=== PATIENT | female | born 1990 | race Caucasian/White ===

== ENCOUNTER → 2017-11-15 11:55 | Outpatient (CLI) | payer OTHER, SELFPAY ==
[2017-11-22 12:49] LABS: HPV Reflexed? NOT INDICATED
== END ==
PROVIDERS: Visit Provider Obstetrics & Gynecology
DX: Z12.4 Encounter for screening for malignant neoplasm of cervix (principal); Z12.72 Encounter for screening for malignant neoplasm of vagina
CPT/HCPCS: 88175; G0145

== ENCOUNTER → 2021-01-04 16:52 | Outpatient (CLI) | payer OTHER, SELFPAY ==
[2021-01-07 20:12] LABS: HPV APTIMA, High Risk Negative (Negative)
== END ==
PROVIDERS: Visit Provider Obstetrics & Gynecology
DX: Z12.4 Encounter for screening for malignant neoplasm of cervix (principal)
CPT/HCPCS: 87624; 88175; G0145

== ENCOUNTER 2021-07-14 14:23 | Outpatient (CLI) | payer OTHER, SELFPAY ==
[2021-07-14 16:05] LABS: Absolute Lymphocyte Count 2.28 X10^3/uL (0.83-4.51); Absolute Neutrophil Count 5.1 X10^3/uL (2.0-7.7); Basophil# 0.04 X10^3/uL; Basophil% 0.5 % (0-1); Eosinophil# 0.32 X10^3/uL; Eosinophils% 3.9 % (0-5); Hemoglobin 12.7 g/dL (12.0-15.0); Lymphocyte # 2.28 X10^3/ul (0.83-4.51); Lymphocyte % 27.8 % (19-41); Mean Corp Hgb Conc 33.4 g/dL (32-36); Mean Corpuscular Hgb 30.7 pg (27.0-32.0); Mean Corpuscular Volume 91.8 fL (81-99); Mean Platelet Vol. 10.2 fl (6.2-12.0); Monocyte# 0.47 X10^3/uL; Monocyte% 5.7 % (0-10); NRBC Flagged by Analyzer 0 % (0-5); Neutrophil # 5.06 X10^3/uL (2.7-7.7); Neutrophil % 61.9 % (47-70); Platelet Count 248 K/mm3 (150-450); RBC Distribution Width CV 12.8 % (11.6-14.6); RBC Distribution Width SD 42.8 fl (35.1-43.9); Red Blood Count 4.14 M/mm3 (4.2-5.4); White Blood Count 8.2 K/mm3 (4.4-11.0)
[2021-07-15 08:31] LABS: HIV - WCH Non-Reactive (Nonreactive); Hepatitis B Surface Antigen Non-Reactive (Nonreactive); Hepatitis C Antibody Non-Reactive (Nonreactive); Rubella IgG Reactive (Nonreactive); Syphilis Antibodies Non-reactive
[2021-07-18 15:08] LABS: Chlamydia By Nucleic Acid AMP Negative (Negative)
[2021-07-18 20:52] LABS: Gonococcus By Nucleic Acid AMP Negative (Negative)
== END 2021-07-14 23:59 | disposition home or self-care (01) ==
LOC: WOBLAB 14:25
PROVIDERS: Visit Provider Student in an Organized Health Care Education/Training Program
DX: Z34.81 Encounter for supervision of other normal pregnancy, first trimester (principal); Z11.3 Encounter for screening for infections with a predominantly sexual mode of transmission
CPT/HCPCS: 36415; 85025; 86703; 86762; 86780; 86803; 87086; 87088; 87340; 87491; 87591

== ENCOUNTER → 2021-12-20 | Outpatient (CLI) | payer OTHER, SELFPAY ==
[2021-12-20 17:32] LABS: Absolute Neutrophil Count 8.2 X10^3/uL (2.0-7.7); Basophil# 0.04 X10^3/uL; Basophil% 0.4 % (0-1); Eosinophil# 0.28 X10^3/uL; Eosinophils% 2.6 % (0-5); Glucose Challenge Gest 1H 50g 140 mg/dL (70-140); Hematocrit 34.2 % (37-47); Hemoglobin 11.3 g/dL (12.0-15.0); Lymphocyte % 15.8 % (19-41); Mean Corpuscular Hgb 31.7 pg (27.0-32.0); Mean Corpuscular Volume 95.8 fL (81-99); Mean Platelet Vol. 10.1 fl (6.2-12.0); Monocyte# 0.43 X10^3/uL; NRBC Flagged by Analyzer 0 % (0-5); Neutrophil # 8.23 X10^3/uL (2.7-7.7); Neutrophil % 76.7 % (47-70); Platelet Count 193 K/mm3 (150-450); RBC Distribution Width CV 13.2 % (11.6-14.6); RBC Distribution Width SD 45.9 fl (35.1-43.9); Red Blood Count 3.57 M/mm3 (4.2-5.4); White Blood Count 10.7 K/mm3 (4.4-11.0)
== END | disposition home or self-care (01) ==
PROVIDERS: Visit Provider Obstetrics & Gynecology
DX: Z34.81 Encounter for supervision of other normal pregnancy, first trimester (principal)
CPT/HCPCS: 36415; 82950; 85025

== ENCOUNTER → 2022-02-21 | Outpatient (CLI) | payer OTHER, SELFPAY | END | disposition home or self-care (01) | LOC: LABSPEC 15:38 | PROVIDERS: Visit Provider Obstetrics & Gynecology | DX: Z36.85 Encounter for antenatal screening for Streptococcus B (principal) | CPT/HCPCS: 87081 ==

== ENCOUNTER 2022-03-11 18:25 | Inpatient (IN) | payer OTHER, SELFPAY ==
[2022-03-11] VITALS (30 sets, daily range): BP systolic 108–138; BP diastolic 57–90; PULSE 70–100; TEMP 36.9–37.4; O2SAT 96–100; BMI 22.8
[2022-03-11] MEDS: Lactated Ringers 1,000 ML 50 ML IV (18:40)
[2022-03-11 19:01] LABS: Absolute Neutrophil Count 6.8 X10^3/uL (2.0-7.7); Basophil# 0.01 X10^3/uL; Basophil% 0.1 % (0-1); Eosinophil# 0.07 X10^3/uL; Eosinophils% 0.7 % (0-5); Hematocrit 39.8 % (37-47); Hemoglobin 13.5 g/dL (12.0-15.0); Lymphocyte % 20.3 % (19-41); Mean Corp Hgb Conc 33.9 g/dL (32-36); Mean Corpuscular Hgb 31.8 pg (27.0-32.0); Mean Corpuscular Volume 93.6 fL (81-99); Mean Platelet Vol. 11.5 fl (6.2-12.0); Monocyte% 5.3 % (0-10); NRBC Flagged by Analyzer 0 % (0-5); Neutrophil # 6.84 X10^3/uL (2.7-7.7); Neutrophil % 73.1 % (47-70); Platelet Count 186 K/mm3 (150-450); RBC Distribution Width CV 13.2 % (11.6-14.6); RBC Distribution Width SD 45.1 fl (35.1-43.9); Red Blood Count 4.25 M/mm3 (4.2-5.4); White Blood Count 9.4 K/mm3 (4.4-11.0)
[2022-03-11] MEDS: LACTATED RINGERS 500 ML 999 ML IV (20:25)
--- NOTE | 2022-03-11 22:11 | HP.PCM.OB_ITS ---
History and Physical Date of Admission: 03/11/22 Chief complaint: Contractions History of present illness: 31-year-old G1, P0 at 39 weeks and 3 days with VICKY 03/15/2022 arrives with contractions. Denies headache, visual changes, chest pain, shortness of breath, nausea vomit, right upper quadrant pain. Patient states good movement. Obstetric history: G1: Current Past medical history: None Medications: None Past surgical history: [place] teeth extraction Allergies: No known drug allergies Social history: Denies smoking, alcohol use, drug use Family history: Denies history DVT or PE Review of systems: Besides above pertinent positives a full review of systems was performed and found to be negative Physical exam: Vitals: Blood pressure 126/67 pulse 86 SPO2 97% on room air General: Normal-appearing no acute distress HEENT: Normocephalic/atraumatic no cervical lymphadenopathy Cardiac/respiratory: No accessory muscles, nonlabored breathing Abdomen: Soft, nontender, gravid Extremities: No peripheral edema normal peripheral pulses Psych: Normal affect normal demeanor nonpressured speech Labs: White blood cell count 9.4 hemoglobin 13.5 hematocrit 39.8% platelets 186 blood type O+ antibody negative Assessment plan: 31-year-old G1, P0 at 39 weeks and 3 days in labor Admit labor and delivery CEFM GBS negative Routine orders Anesthesia to see
[2022-03-11] MEDS: fentaNYL-bupivacaine (epidural) 100 ML BAG EPIDURAL (22:35)
[2022-03-12] VITALS (38 sets, daily range): BP systolic 91–155; BP diastolic 51–85; PULSE 71–175; RESP 12–20; TEMP 36.3–38.2; O2SAT 98–100
[2022-03-12] MEDS: Lactated Ringers 1,000 ML 200 ML IV ×2 (00:59→04:47)
[2022-03-12] MEDS: fentaNYL-bupivacaine (epidural) 100 ML BAG EPIDURAL ×2 (01:29→05:59)
[2022-03-12] MEDS: LACTATED RINGERS 500 ML 999 ML IV (04:48)
[2022-03-12] MEDS: Acetaminophen 500 MG Tablet PO (05:13)
--- NOTE | 2022-03-12 08:30 | PN.OBGYN_ITS ---
Subjective Subjective Comfortable with epidural. Currently pushing Objective Data Objective Data Vital Signs: Vital Signs Temp Pulse BP Pulse Ox 100.6 F H 74 136/70 H 98 03/12/22 07:12 03/12/22 07:42 03/12/22 07:13 03/12/22 07:42 Weight: 129 lb 3.054 oz Body Mass Index (BMI) 22.8 Intake & Output: Intake and Output for Last 24 Hours 03/10/22 03/11/22 03/12/22 23:59 23:59 22:59 Intake Total 587.5 / 587.5 2676.50 / 2676.50 Balance 587.5 / 587.5 2676.50 / 2676.50 Lab / Micro Data Result Diagrams: 03/11/22 18:45 Labs: Laboratory Results - last 24 hr 03/11/22 18:45: WBC 9.4, RBC 4.25, Hgb 13.5, Hct 39.8, MCV 93.6, MCH 31.8, MCHC 33.9, RDW Std Deviation 45.1 H, RDW Coeff of Елена 13.2, Plt Count 186, MPV 11.5, Immature Gran % (Auto) 0.500, Neut % (Auto) 73.1 H, Lymph % (Auto) 20.3, [place] % (Auto) 5.3, Eos % (Auto) 0.7, Baso % (Auto) 0.1, Absolute Neuts (auto) 6.8, Absolute Lymphs (auto) 1.90, Nucleated RBC % 0 03/11/22 18:45: Blood Type O POSITIVE, Antibody Screen NEGATIVE Physical Exam Const alert, oriented x3, no apparent distress, average body habitus, healthy appearing and well nourished HEENT normocephalic and moist oral mucous membranes Eyes PERRL Neck full ROM Resp normal respiratory effort, no retractions and no use of accessory muscles GI GI Narrative: Soft, nontender, gravid Narrative: Cervical exam: 10/100/+1. Moderate caput. Sacrum and coccyx with anterior tilt, prominent pubic arches. Narrow pelvis Extremity normal to inspection, full ROM and no clubbing, cyanosis or edema Neuro moves all extremities, no focal motor deficits and no sensory deficits noted Psych mental status grossly normal, affect normal, speech normal and activity/motor behavior normal Assessment & Plan (1) : PLAN: Patient seen and examined. Pushing for 3 hours. Diagnosed with suspected chorioamnionitis based on temperature and tachycardia. Narrow pelvis not a candidate for operative delivery. Educated patient on findings discussed section risk benefits alternatives. Patient desires expectant management for continued pushing for least 30 more minutes. Okay for pushing we will reevaluate and rediscuss options including section. Continue to treat suspected chorioamnionitis with ampicillin and gentamicin. Treat temperatures with Tylenol
[2022-03-12] MEDS: Sodium Citrate/Citric Acid 30 ML UDC PO (09:20)
--- NOTE | 2022-03-12 09:22 | PN.OBGYN_ITS ---
Subjective Subjective Comfortable with epidural continuing to push Objective Data Objective Data Vital Signs: Vital Signs Temp Pulse BP Pulse Ox 99.1 F 72 129/83 H 98 03/12/22 08:50 03/12/22 08:51 03/12/22 08:51 03/12/22 07:42 Weight: 129 lb 3.054 oz Body Mass Index (BMI) 22.8 Intake & Output: Intake and Output for Last 24 Hours 03/10/22 03/11/22 03/12/22 23:59 23:59 22:59 Intake Total 587.5 / 587.5 2676.50 / 2676.50 Balance 587.5 / 587.5 2676.50 / 2676.50 Lab / Micro Data Result Diagrams: 03/11/22 18:45 Labs: Laboratory Results - last 24 hr 03/11/22 18:45: WBC 9.4, RBC 4.25, Hgb 13.5, Hct 39.8, MCV 93.6, MCH 31.8, MCHC 33.9, RDW Std Deviation 45.1 H, RDW Coeff of Елена 13.2, Plt Count 186, MPV 11.5, Immature Gran % (Auto) 0.500, Neut % (Auto) 73.1 H, Lymph % (Auto) 20.3, [place] % (Auto) 5.3, Eos % (Auto) 0.7, Baso % (Auto) 0.1, Absolute Neuts (auto) 6.8, Absolute Lymphs (auto) 1.90, Nucleated RBC % 0 03/11/22 18:45: Blood Type O POSITIVE, Antibody Screen NEGATIVE Physical Exam Const alert, oriented x3, no apparent distress, average body habitus, healthy appearing and well nourished HEENT normocephalic and moist oral mucous membranes Eyes PERRL Neck full ROM Resp normal respiratory effort, no retractions and no use of accessory muscles GI GI Narrative: Soft, nontender, gravid Narrative: Cervical exam: /+1. Increase It from last exam. Narrow pelvis Extremity normal to inspection, full ROM and no clubbing, cyanosis or edema Neuro moves all extremities and no focal motor deficits Psych mental status grossly normal, affect normal, speech normal and activity/motor behavior normal Assessment & Plan (1) : PLAN: Patient seen and examined. Increased catheter from last exam no improvement in station. Narrow pelvis not a candidate for operative delivery. Educated patient on findings. Discussed need for primary low-transverse section Via Pfannenstiel incision. Risk benefits alternatives including risk for infection and blood loss. Patient states understanding wish to proceed. All questions were answered and consent was signed. For now. Continue amp, gent, and add clindamycin 900 mg. For now, operative team called, anesthesia called
[2022-03-12] MEDS: Clindamycin 900 MG/50 ML BAG 75 MG IV ×2 (09:40→17:40)
--- NOTE | 2022-03-12 10:42 | EX.PCM.OBRPT ---
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 Normal uterus, tubes, and ovaries. Left lateral hysterotomy extension. Left uterine vessel [place] stitch thrown x2. Consent: Patient arrived in labor spontaneously ruptured membranes later with fever and tachycardia r and diagnosis suspected chorioamnionitis became complete dilation and pushed for nearly 4 hours. Noted to have narrow pelvis. Patient elects for primary low-transverse section Via Pfannenstiel incision. Patient understands the risk of the procedure include but are not limited to visceral or vascular injury, prolonged hospitalization, blood loss and need for transfusion, reoperation. Patient state understanding and wished to proceed. All questions were answered and consent was signed. Procedure: Patient was brought back to the OR where epidural anesthesia was found to be adequate. Ampicillin, gentamicin, clindamycin given for infection prophylaxis. pillow was inserted 180 cc of normal saline placed in pillow, pillow spontaneously fell out of the vagina prior to surgery. Patient was prepared and draped in a supine position with leftward tilt. A Pfannenstiel incision was made at the skin with a scalpel. The incision was carried down the fascia with a scalpel. The fascia was excised and extended laterally. Rectus muscle was dissected at the midline down to the level of the pubic symphysis. Preperitoneal fatty tissue was noted and peritoneum was entered bluntly. Peritoneum was extended superiorly and inferiorly with good visualization of bladder. Bladder blade was inserted and vesicouterine peritoneum was identified. Low transverse hysterotomy was made. Hand was placed into the incision and and gentle fundal pressure was applied once the head was brought into the incision and the bladder blade was removed. Head and shoulders were delivered with ease. Cord was clamped and cut. Baby handed off to nursing. Placenta was delivered via cord traction and fundal massage. Uterus was exteriorized and wiped out with dry laparotomy sponge in order to remove remaining placental membranes. Above findings were noted. Hysterotomy was closed in a continuous running fashion with Vicryl suture. Left uterine extension noted and left [place] suture Monocryl was placed x2. Good hemostasis was noted. Incision was reinspected and good hemostasis was noted. Uterus was placed back in the abdominal cavity and the incision was reinspected, good hemostasis was noted. Floseal was placed at the area of extension. Good hemostasis was noted. Fascia was closed in a continuous running fashion with PDS. Subcutaneous irrigation was performed and good hemostasis was noted. Skin was closed in a subcuticular fashion. All counts were correct x2. Patient tolerated the procedure well and was brought to recovery in stable condition.
[2022-03-12] MEDS: Ketorolac 30 MG/ML Syringe IV ×3 (10:56→23:38)
[2022-03-12] MEDS: Oxytocin 15 Units/NS 250ml 15 UNITS/250 ML IV.SOLN 83 UNITS IV (11:01)
[2022-03-12] MEDS: Acetaminophen 500 MG Tablet 1000 MG PO ×3 (11:55→23:44)
[2022-03-12] MEDS: Lactated Ringers 1,000 ML 100 ML IV (11:55)
[2022-03-12] MEDS: 0.9% Saline Lock 10 ML Syringe IV (17:40)
[2022-03-12] MEDS: Enoxaparin 40 MG/0.4 ML Syringe SC (23:39)
[2022-03-13] MEDS: Clindamycin 900 MG/50 ML BAG 75 MG IV ×2 (02:04→09:44)
[2022-03-13] MEDS: 0.9% Saline Lock 10 ML Syringe IV (02:05)
[2022-03-13 04:13] VITALS: BP 97/66; PULSE 80; RESP 14; TEMP 36.2; O2SAT 99
--- NOTE | 2022-03-13 05:01 | PCM.PN.OB ---
Subjective Subjective Patient feeling well. Having some soreness. Lochia decreasing. Working on breast-feeding. Objective Data Objective Data Vital Signs: Vital Signs Temp Pulse Resp BP Pulse Ox O2 Del Method 97.2 F L 80 14 97/66 99 Room Air 03/13/22 04:13 03/13/22 04:13 03/13/22 04:13 03/13/22 04:13 03/13/22 04:13 03/13/22 04:13 Oxygen Delivery Method Room Air Weight: 58.6 kg Body Mass Index (BMI) 22.8 Intake & Output: Intake and Output for Last 24 Hours 03/12/22 03/12/22 03/13/22 00:59 23:59 23:59 Intake Total 150 / 150 Output Total Balance 150 / 150 Lab / Micro Data Attestation: I reviewed the patient's lab results. Result Diagrams: 03/11/22 18:45 Physical Exam Const alert, oriented x3 and no apparent distress HEENT normocephalic Head and Scalp: atraumatic Neck full ROM Resp normal respiratory effort Cardio regular rate GI normal to inspection, nondistended, normoactive bowel sounds GI Narrative: Uterus 2 cm below umbilicus, dressing with two areas of dried blood,no new. Back/Spine normal ROM Extremity normal to inspection Extremity Narrative: Minimal pedal edema Neuro no focal motor deficits and no sensory deficits noted Psych mental status grossly normal and affect normal Assessment & Plan (1) History of section: PLAN: Postop day 1 status post primary section. Complicated by chorioamnionitis. Last fever on 03/12 at 0712. Patient is continued on antibiotics for 24 hours which should be completed this morning (ampicillin/gentamicin/clindamycin). CBC is pending for this morning. Likely home tomorrow. (2) Chorioamnionitis:
[2022-03-13] MEDS: Acetaminophen 500 MG Tablet 1000 MG PO ×3 (05:19→18:59)
[2022-03-13] MEDS: Ketorolac 30 MG/ML Syringe IV (05:19)
[2022-03-13 07:07] LABS: Hemoglobin 9.4 g/dL (12.0-15.0); Mean Corp Hgb Conc 33.6 g/dL (32-36); Mean Corpuscular Hgb 32.3 pg (27.0-32.0); Mean Corpuscular Volume 96.2 fL (81-99); Mean Platelet Vol. 10.8 fl (6.2-12.0); Platelet Count 127 K/mm3 (150-450); RBC Distribution Width CV 13.9 % (11.6-14.6); RBC Distribution Width SD 48.9 fl (35.1-43.9); Red Blood Count 2.91 M/mm3 (4.2-5.4); White Blood Count 18.5 K/mm3 (4.4-11.0)
[2022-03-13 07:30] VITALS: BP 103/61; PULSE 81; RESP 16; TEMP 36.2; O2SAT 98
[2022-03-13] MEDS: Senna/Docusate Sodium 1 Tablet PO (09:45)
[2022-03-13] MEDS: Ibuprofen 600 MG Tablet PO ×3 (10:59→23:22)
[2022-03-13 14:43] VITALS: BP 108/65; PULSE 98; RESP 18; TEMP 36.7; O2SAT 98
[2022-03-13 21:24] VITALS: BP 116/80; PULSE 78; RESP 18; TEMP 36.2; O2SAT 99
[2022-03-13] MEDS: Enoxaparin 40 MG/0.4 ML Syringe SC (21:30)
[2022-03-14] MEDS: Acetaminophen 500 MG Tablet 1000 MG PO ×3 (00:34→16:41)
[2022-03-14 02:05] VITALS: BP 109/71; PULSE 78; RESP 18; TEMP 36.5; O2SAT 98
[2022-03-14] MEDS: Ibuprofen 600 MG Tablet PO ×2 (05:34→14:14)
[2022-03-14 05:47] LABS: Absolute Lymphocyte Count 2.55 X10^3/uL (0.83-4.51); Absolute Neutrophil Count 14.1 X10^3/uL (2.0-7.7); Basophil# 0.04 X10^3/uL; Basophil% 0.2 % (0-1); Eosinophil# 0.24 X10^3/uL; Eosinophils% 1.4 % (0-5); Hematocrit 31.7 % (37-47); Hemoglobin 10.6 g/dL (12.0-15.0); Lymphocyte # 2.55 X10^3/ul (0.83-4.51); Lymphocyte % 14.4 % (19-41); Mean Corp Hgb Conc 33.4 g/dL (32-36); Mean Corpuscular Hgb 31.8 pg (27.0-32.0); Mean Corpuscular Volume 95.2 fL (81-99); Monocyte# 0.56 X10^3/uL; Monocyte% 3.2 % (0-10); NRBC Flagged by Analyzer 0 % (0-5); Neutrophil # 14.12 X10^3/uL (2.7-7.7); Neutrophil % 79.9 % (47-70); Platelet Count 162 K/mm3 (150-450); RBC Distribution Width CV 14.2 % (11.6-14.6); RBC Distribution Width SD 49.1 fl (35.1-43.9); Red Blood Count 3.33 M/mm3 (4.2-5.4); White Blood Count 17.7 K/mm3 (4.4-11.0)
--- NOTE | 2022-03-14 08:32 | PN.OBGYN_ITS ---
Subjective Subjective Patient feeling sore. Motrin and Tylenol helping. Lochia minimal. Breast- feeding going well. Reports of gas pain. He is passing gas. Objective Data Objective Data Vital Signs: Vital Signs Temp Pulse Resp BP Pulse Ox O2 Del Method 97.7 F L 78 18 109/71 98 Room Air 03/14/22 02:05 03/14/22 02:05 03/14/22 02:05 03/14/22 02:05 03/14/22 02:05 03/14/22 02:05 Oxygen Delivery Method Room Air Weight: 58.6 kg Body Mass Index (BMI) 22.8 Intake & Output: Intake and Output for Last 24 Hours 03/12/22 03/13/22 03/14/22 23:59 23:59 23:59 Intake Total 356.5 / 356.5 Output Total 400 / 400 Balance 356.5 / 356.5 -400 / -400 Lab / Micro Data Attestation: I reviewed the patient's lab results. Result Diagrams: 03/14/22 05:32 Labs: Laboratory Results - last 24 hr 03/14/22 05:32: WBC 17.7 H, RBC 3.33 L, Hgb 10.6 L, Hct 31.7 L, MCV 95.2, MCH 31.8, MCHC 33.4, RDW Std Deviation 49.1 H, RDW Coeff of Елена 14.2, Plt Count 162, MPV 11.0, Immature Gran % (Auto) 0.900, Neut % (Auto) 79.9 H, Lymph % (Auto) 14.4 L, [place] % (Auto) 3.2, Eos % (Auto) 1.4, Baso % (Auto) 0.2, Absolute Neuts (auto) 14.1 H, Absolute Lymphs (auto) 2.55, Nucleated RBC % 0 Physical Exam Const alert, oriented x3 and no apparent distress HEENT normocephalic Head and Scalp: atraumatic Neck full ROM Resp normal respiratory effort Cardio regular rate GI normal to inspection, nondistended, normoactive bowel sounds GI Narrative: Uterus 2 cm below umbilicus, dressing dried area of blood, no new. Back/Spine normal ROM Extremity normal to inspection Extremity Narrative: Minimal pedal edema Neuro no focal motor deficits and no sensory deficits noted Psych mental status grossly normal and affect normal Assessment & Plan (1) Chorioamnionitis: (2) History of section: PLAN: Postop day 2 status post primary section. Complicated by chorioamnionitis. Last fever on 03/12 at 0712. Status post 24 hours of antibiotics. Leukocytosis stable. Hemoglobin stable. Reviewed postoperative care, signs and symptoms of infection including fever greater than 100.4 degrees F, foul-smelling discharge, erythema around incision. Discharge home today. (3) Acute postoperative pain:
--- NOTE | 2022-03-14 08:36 | DCINST_ITS ---
Discharge Instructions Diet Discharge Diet: No restrictions Activity Discharge Activity: Return to Normal Activity and May Shower May resume sexual activity in: 4-6 weeks Weight Bearing Status: Weight bearing as tolerated Lifting Restrictions: No greater than 25 pounds Dressing / Incision Call your doctor if your incision/area has: Continuous Slow Oozing, Increased Redness and Swelling at the incision site Call your doctor if you observe: Fever of 101 or Higher, Change in Color, Inability to urinate, Using more than 1 pad per hour, Shortness of breath, Dizziness, Swelling in the ankles, Chest pain and Calf discomfort Remove Dressing in: 1 week Cleanse incision/area with: Soap & Water and Keep Dressing Clean & Dry Follow Up Care Please Follow Up With: Klever Galloway MD When: 2-week and 6-week visit Test Results: Test results from this visit will be discussed in further detail at your follow- up appointment, if applicable. Discharge Plan Admission Admit Date/Time: 03/11/22 18:25 Primary Reason for Your Visit: Labor, section Attending Provider: Olga Galloway Instructions Additional Instructions / Restrictions: Regular diet. Okay to shower. No tub baths for 2 weeks. No lifting over 25 pounds for 2 to 3 weeks. Call if chest pain, shortness of breath. Follow-up 2 weeks postoperatively Discharge Orders/Prescriptions Prescriptions: New oxycodone 5 mg Tablet 5 mg PO Q6H PRN (Reason: pain (scale score 7-10)) 4 Days Qty: 16 0RF Continued 1 tab PO.IVFORM DAILY Disposition Disposition (needs filled in before D/C Order can be placed): Home, Self Care
--- NOTE | 2022-03-14 08:37 | DS.PCM_ITS ---
Providers Date of Admission: 03/11/22 Reason For Visit: PRIMARY C SECTION Diagnosis Discharge Diagnosis (1) Chorioamnionitis: Status: Acute Code(s): O41.1290 - Chorioamnionitis, unspecified trimester, not applicable or unspecified (2) History of section: Status: Acute Code(s): Z98.891 - History of uterine scar from previous surgery Plan: Postop day 2 status post primary section. Complicated by chorioamnionitis. Last fever on 03/12 at 0712. Status post 24 hours of antibiotics. Leukocytosis stable. Hemoglobin stable. Reviewed postoperative care, signs and symptoms of infection including fever greater than 100.4 degrees F, foul-smelling discharge, erythema around incision. Discharge home today. (3) Acute postoperative pain: Status: Acute Code(s): G89.18 - Other acute postprocedural pain Medications at Discharge Home Medications 1 tab PO.IVFORM DAILY 03/11/22 oxycodone 5 mg tablet 5 mg PO Q6H PRN pain (scale score 7-10) 4 days #16 tabs 03/12/22 Hospital Course Operations section Summary of Care Provided Hospital Course: Patient admitted in labor. Progressed throughout. Pushed for several hours, with minimal descent. Chorioamnionitis develop. Patient had section on 03/12/2022. Received 24 hours of antibiotics postoperatively. Patient has been afebrile for total 48 hours on discharge. Discharge home. Weight / BMI Weight Weight: 58.6 kg Body Mass Index (BMI) 22.8 ABG / Lab / Microbiology Data Result Diagrams: 03/14/22 05:32 Laboratory: Laboratory Results - last 24 hr 03/14/22 05:32: WBC 17.7 H, RBC 3.33 L, Hgb 10.6 L, Hct 31.7 L, MCV 95.2, MCH 31.8, MCHC 33.4, RDW Std Deviation 49.1 H, RDW Coeff of Елена 14.2, Plt Count 162, MPV 11.0, Immature Gran % (Auto) 0.900, Neut % (Auto) 79.9 H, Lymph % (Auto) 14.4 L, [place] % (Auto) 3.2, Eos % (Auto) 1.4, Baso % (Auto) 0.2, Absolute Neuts (auto) 14.1 H, Absolute Lymphs (auto) 2.55, Nucleated RBC % 0 D/C Instructions Discharge Diet: No restrictions May resume sexual activity in: 4-6 weeks Weight Bearing Status: Weight bearing as tolerated Call your doctor if your incision/area has: Continuous Slow Oozing, Increased Redness and Swelling at the incision site Call your doctor if you observe: Fever of 101 or Higher, Change in Color, Inability to urinate, Using more than 1 pad per hour, Shortness of breath, Dizziness, Swelling in the ankles, Chest pain and Calf discomfort Cleanse incision/area with: Soap & Water and Keep Dressing Clean & Dry Please Follow Up With: Klever Galloway MD When: 2-week and 6-week visit Meaningful Use Info Meaningful Use Diagnoses (Choose all that apply): None applicable Discharge Plan Admission Admit Date/Time: 03/11/22 18:25 Primary Reason for Your Visit: Labor, section Attending Provider: Olga Galloway Instructions Additional Instructions / Restrictions: Regular diet. Okay to shower. No tub baths for 2 weeks. No lifting over 25 pounds for 2 to 3 weeks. Call if chest pain, shortness of breath. Follow-up 2 weeks postoperatively Discharge Orders/Prescriptions Prescriptions: New oxycodone 5 mg Tablet 5 mg PO Q6H PRN (Reason: pain (scale score 7-10)) 4 Days Qty: 16 0RF Continued 1 tab PO.IVFORM DAILY Disposition Disposition (needs filled in before D/C Order can be placed): Home, Self Care
[2022-03-14 10:00] VITALS: BP 116/75; PULSE 84; RESP 16; O2SAT 99
[2022-03-14 14:00] VITALS: BP 118/78; PULSE 83; RESP 16; TEMP 36.8
== END 2022-03-14 17:00 | disposition home or self-care (01) | DRG 786 ==
LOC: WPOUT 18:25 → WP 18:25
PROVIDERS: Admitting Provider Student in an Organized Health Care Education/Training Program; Visit Provider Student in an Organized Health Care Education/Training Program
DX: O76 Abnormality in fetal heart rate and rhythm complicating labor and delivery (principal); O41.1230 Chorioamnionitis, third trimester, not applicable or unspecified; G89.18 Other acute postprocedural pain; Z37.0 Single live birth; Z3A.39 39 weeks gestation of pregnancy
CPT/HCPCS: 59025; 59050; 85025; 85027; 86850; 86900; 86901; 99218; J7120; A4216; G0378; J2405

== ENCOUNTER → 2025-02-04 | Outpatient (CLI) | payer OTHER, SELFPAY ==
[2025-02-04 08:14] LABS: Hematocrit 35.0 % (37-47); Hemoglobin 11.7 g/dL (12.0-15.0); Mean Corp Hgb Conc 33.4 g/dL (32-36); Mean Corpuscular Volume 95.4 fL (81-99); Mean Platelet Vol. 10.0 fl (6.2-12.0); Platelet Count 218 K/mm3 (150-450); RBC Distribution Width CV 13.6 % (11.6-14.6); RBC Distribution Width SD 47.3 fl (35.1-43.9); Red Blood Count 3.67 M/mm3 (4.2-5.4); White Blood Count 10.1 K/mm3 (4.4-11.0)
[2025-02-04 08:54] LABS: Ferritin 40 ng/mL (22-378); Glucose Challenge Gest 1H 50g 127 mg/dL (70-140); Iron 92 ug/dL (50-170); Iron Binding Capacity,Total 398 ug/dL (250-450); Iron Binding Capacity,Unsat 306 ug/dL (228-428); Syphilis Antibodies Nonreactive (Nonreactive)
--- OUTSIDE RECORDS SUMMARY | 2025-02-05 21:57 | XMS RPT_ITS | CCD ---
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 Name Role Phone Unavailable Primary Care Provider Unavailvioleta e Karely Ernst Attending Unavailable Karely Ernst Admitting Unavailable HAURY, CLEOPATRA Referring Unavailable EMY EDGE Attending Unavailable HAURY, CLEOPATRA Referring Unavailable SELF Referring Unavailable HAURY, CLEOPATRA Attending Unavailable GARY GUZMAN Attending Unavailable HAURY, CLEOPATRA Referring Unavailable HAURY, CLEOPATRA Attending Unavailable HAURY, CLEOPATRA Referring Unavailable HAURY, CLEOPATRA Attending Unavailable HAURY, CELOPATRA Referring Unavailable Medications Current Medications Medication Drug Class(es) Dates Sig (Normalized) Sig (Original) aspirin 81 mg delayed release oral tablet (3 sources) Platelet Aggregation Inhibitor, Nonsteroidal Anti-inflammatory Drug Start: 09-25-2024 End: 11-20-2024 take 1 tablet by mouth once daily aspirin, enteric coated (ECOTRIN LOW STRENGTH) 81 mg EC tablet Indications: Encounter for supervision of high risk in first trimester, antepartum (HCC) Take 1 tablet by mouth once daily. 90 tablet 3 09/25/2024 11/20/2024 Discontinued azithromycin 250 mg oral tablet (1 source) Macrolide Antimicrobial Start: 05-10-2021 Azithromycin Active 0 PO .COMPLEX May 10, 2021 1:00am take 500 mg today (day 1), then 250 mg for 4 days (days 2-5) PO Norgestimate-Ethiny l Estradiol (1 source) Progestin, Estrogen Start: 09-05-2017 Norgestimate-Ethiny l Estradiol Active PO September 05, 2017 12:00am nitrofurantoin, macrocrystals 25 mg / nitrofurantoin, monohydrate 75 mg oral capsule (1 source) Nitrofuran Antibacterial Start: 09-21-2018 take 1 capsule by mouth twice daily at mealtime Nitrofurantoin Monohyd/M-Cryst (Macrobid) 100 mg capsule Active 100 MG PO TWICE A DAY 20 May 18th, 2019 12:00am must administer with a meal/food vit no.236-[id number]-[id number] ( VITAMIN) 27 mg iron- 800 mcg tab (8 sources) take 1 tablet by mouth once daily vit no.511-uqua-wbqxn ( VITAMIN) 27 mg iron- 800 mcg tab Take 1 tablet by mouth once daily. Active Problems Active Problems Problem Classification Problem Date Documented Date Episodic/Chronic Acute bronchitis (1 source) Acute bronchitis; Translations: [Acute bronchitis, unspecified] Episodic Anxiety disorders (1 source) Anxiety; Translations: [Anxiety disorder, unspecified] Chronic Chronic obstructive pulmonary disease and bronchiectasis (2 sources) Acute exacerbation of chronic obstructive airways disease; Translations: [Chronic obstructive pulmonary disease with (acute) exacerbation] Chronic Esophageal disorders (1 source) Gastroesophageal reflux disease; Translations: [Gastro-esophageal reflux disease without esophagitis] Chronic Mycoses (1 source) Candidiasis of mouth; Translations: [Candidal stomatitis] Episodic Other complications of (14 sources) High risk ; Translations: [Supervision of high risk , unspecified, first trimester] Onset: 09-25-2024 10-22-2024 Episodic Other complications of (1 source) Supervision of high risk , unspecified, second trimester; Translations: [Supervision of high risk in second trimester (HCC)] Onset: 12-18-2024 Episodic Other complications of (1 source) Supervision of high risk , unspecified, first trimester; Translations: [Encounter for supervision of high risk in first trimester, antepartum (HCC)] Onset: 12-18-2024 Episodic Other connective tissue disease (1 source) Bursitis of shoulder; Translations: [Bursitis of left shoulder] Episodic Other lower respiratory disease (1 source) Nodule of lung; Translations: [Solitary pulmonary nodule] Episodic Other lower respiratory disease (1 source) Hypoxia; Translations: [Hypoxemia] Episodic Other lower respiratory disease (1 source) Paroxysmal nocturnal dyspnea; Translations: [Dyspnea, unspecified] Episodic Other screening for suspected conditions (not mental disorders or infectious disease) (3 sources) Patient encounter status; Translations: [Encounter for screening for diabetes mellitus] Onset: 09-25-2024 01-15-2025 Episodic Other skin disorders (1 source) Mass of skin; Translations: [Localized swelling, mass and lump, unspecified] Episodic Other upper respiratory disease (1 source) Seasonal allergic rhinitis; Translations: [Other seasonal allergic rhinitis] Chronic Other upper respiratory infections (1 source) Sinusitis; Translations: [Chronic sinusitis, unspecified] Chronic Other upper respiratory infections (1 source) Upper respiratory infection; Translations: [Acute upper respiratory infection, unspecified] Episodic Residual codes; unclassified (1 source) Gestation period, 12 weeks; Translations: [12 weeks gestation of ] 10-22-2024 Episodic Residual codes; unclassified (1 source) Gestation period, 16 weeks; Translations: [16 weeks gestation of ] 11-20-2024 Episodic Residual codes; unclassified (2 sources) Gestation period, 20 weeks; Translations: [20 weeks gestation of ] 12-18-2024 Episodic Residual codes; unclassified (1 source) Gestation period, 24 weeks; Translations: [24 weeks gestation of ] 01-15-2025 Episodic Residual codes; unclassified (1 source) 24 weeks gestation of ; Translations: [24 weeks gestation of (HCC)] Onset: 01-15-2025 Episodic Residual codes; unclassified (1 source) History of uterine scar from previous surgery; Translations: [History of section] Onset: 10-22-2024 Episodic Residual codes; unclassified (1 source) 20 weeks gestation of ; Translations: [20 weeks gestation of (HCC)] Onset: 12-18-2024 Episodic Residual codes; unclassified (1 source) 16 weeks gestation of ; Translations: [16 weeks gestation of ([facility])] Onset: 11-20-2024 Episodic Residual codes; unclassified (1 source) 12 weeks gestation of ; Translations: [12 weeks gestation of ([facility])] Onset: 10-22-2024 Episodic Respiratory failure; insufficiency; arrest (adult) (1 source) Chronic hypoxemic respiratory failure; Translations: [Chronic respiratory failure with hypoxia] Chronic Spondylosis; intervertebral disc disorders; other back problems (1 source) Neck pain; Translations: [Cervicalgia] Episodic Unclassified (8 sources) [facility] Education - COMMON Onset: 09-25-2024 09-25-2024 Unclassified (8 sources) Education - [place] Onset: 09-25-2024 09-25-2024 Past or Other Problems Problem Classification Problem Date Documented Date Episodic/Chronic Immunizations and screening for infectious disease (2 sources) Exposure to Mycobacterium tuberculosis; Translations: [Contact with and (suspected) exposure to tuberculosis] Onset: 09-25-2024 Episodic Other and delivery including normal (3 sources) Normal ; Translations: [Encounter for supervision of other normal , first trimester] Onset: 09-25-2024 10-22-2024 Episodic Residual codes; unclassified (1 source) 8 weeks gestation of ; Translations: [8 weeks gestation of (HCC)] Onset: 09-25-2024 Episodic Results Test Name Value Interpretation Reference Range Facil ity Marlene 12-18-2024 CNPN Telephone (OBGYWM) CHYNA DUBON ([id number]) 1990 F Date Time Provider Department 12/18/24 CLEOPATRA POWELL During your visit today, we recorded the following information about you: Cleopatra Powell APRN.[place] 12/18/2024 9:19 AM Signed VICKY 05/06. Planning for repeat c/s. Would like Dr. Luong. 39 weeks makes her 04/29. Would prefer to avoid Dimas/Dimas Clarissa. Wondering when she could have her repeat c/s with Dr. Luong. Cleopatra Powell APRN.Yoon Robertson, RN 12/18/2024 10:44 AM Signed RR is in surgery on 05/01. C/S schedule is open. VIKA Crowe Rebecca L, MD 12/19/2024 2:00 PM Signed I am planning on being out -07 of May. So I can't promise I will do it. I might not be out. MD Trina Paredes Jennifer, RN 12/19/2024 4:55 PM Signed KJ is back up call on 05/01. Surgery sheet to ANJELICA. VIKA Crowe Trisha, RN 12/23/2024 4:44 PM Signed ANJELICA planning to talk to DM to see if can add on c/s to her surgery day 05/01. VIKA Santiago Karmon, MD 12/30/2024 4:27 PM Signed I need to discuss with . Karely Ernst MD Allergies As of Date: 12/18/2024 (No Known Allergies) Date Reviewed: 12/18/2024 Reviewed by: Cleopatra Powell APRN.GAME ARTIST - Fully Assessed Reason for Visit: C/S [Other] Prescriptions as of 01/02/2025 - vit no.059-nbse-uhund ( VITAMIN) 27 mg iron- 800 mcg tab Take 1 tablet by mouth once daily. Problem List As Of Date 12/18/2024 Noted Resolved Supervision of high risk in second tr*09/25/2024 History of section [Z98.891] 09/25/2024 Encounter Status:Closed by CLEOPATRA POWELL on 12/22/24 Normal [facility] Examination level ultrasound on 12-18-2024 Indication Standard anatomic survey Impression The patient is referred for a standard anatomic survey. - Single, live, intrauterine . - biometry is consistent with the established gestational age. - No malformations were visualized on a complete standard anatomic survey. - The amniotic fluid volume is normal amount. - The placenta is anterior, fundal. - The Transabdominal cervical length measures 40.9 mm with no evidence of funneling or other dynamic changes. - Not all structural malformations can be detected by ultrasound examination. Recommendations Additional follow-up as clinically indicated. Maternal Assessment Height 163 cm Height (ft) 5 ft Height (in) 4 in Physical Exam Initial weight (lb) 104 lb Initial BMI 17.85 kg/m Maternal assessment other: 2 Para 1 REMOTE READ Method Transabdominal ultrasound examination. View: Suboptimal view: limited by position Valenzuela . Number of fetuses: 1 Dating LMP on: 07/30/2024 GA by LMP 20 w + 1 d VICKY by LMP: 05/06/2025 GA by prior assessment 20 w + 1 d VICKY by prior assessment: 05/06/2025 Ultrasound examination on: 12/18/2024 GA by U/S based upon: AC, BPD, Femur, HC GA by U/S 20 w + 2 d VICKY by U/S: 05/05/2025 Assigned: based on stated VICKY, selected on 12/18/2024 Assigned GA 20 w + 1 d Assigned VICKY: 05/06/2025 General Evaluation Cardiac activity present. FHR 143 bpm. movements: present. Presentation: breech Placenta: Placental site: anterior, fundal Umbilical cord: Cord vessels: 3 vessel cord Amniotic fluid: Amount of AF: normal amount. MVP 5.8 cm Growth Overview Exam date GA BPD (mm) HC (mm) AC (mm) FL (mm) HL (mm) EFW (g) 12/18/2024 20w 1d 48 66% 180.8 61% 153 56% 30.7 41% 30.8 56% 332 42% Biometry Standard BPD 48.0 mm 20w 4d 66% Hadlock OFD 64.4 mm 20w 3d 87% Nicolaides HC 180.8 mm 20w 3d 61% Marisabel Cerebellum tr 22.1 mm 20w 5d 89% Hill Nuchal fold 5.8 mm AC 153.0 mm 20w 4d 56% Hadlock Femur 30.7 mm 19w 5d 41% Marisabel Humerus 30.8 mm 20w 1d 56% Marisabel EFW 332 g 20w 0d 42% Hadlock EFW (lb) 0 lb EFW (oz) 12 oz EFW by: Hadlock (HC-AC-FL) Extended Software Sales Representative 5.3 mm CM 3.9 mm 15% Nicolaides Extremities / Bony Struc FL / HC 0.17 4% Hadlock Other Structures FHR 143 bpm Anatomy Cranium: normal Lateral ventricles: normal Choroid plexus: normal Midline falx: normal Cavum septi pellucidi: normal Cerebellum: normal Cisterna magna: normal Head / Neck Vermis: Normal but not required for a standard anatomy exam Neck: Normal but not required for a standard anatomy exam Nuchal fold: Normal but not required for a standard anatomy exam Lips: normal Profile: Normal but not required for a standard anatomy exam Nose: Normal but not required for a standard anatomy exam Face Maxilla: Normal but not required for a standard anatomy exam Mandible: Normal but not required for a standard anatomy exam Orbits: Normal but not required for a standard anatomy exam Lens: Normal but not required for a standard anatomy exam 4-chamber view: normal RVOT view: normal LVOT view: normal 3-vessel view: normal 5-hkovuq-qtumcvw view: normal Heart / Thorax Situs: situs solitus (normal) Aortic arch view: Normal but not required for a standard anatomy exam SVC: Normal but not required for a standard anatomy exam IVC: Normal but not required for a standard anatomy exam Cardiac axis: normal Rt lung: Normal but not required for a standard anatomy exam Lt lung: Normal but not required for a standard anatomy exam Diaphragm: normal Cord insertion: normal Stomach: normal Kidneys: normal Bladder: normal Genitals: normal Abdomen Abdom. wall: normal Cervical spine: normal Thoracic spine: normal Lumbar spine: normal Sacral spine: normal Arms: normal Legs: normal Rt upper arm: normal Rt forearm: normal Rt hand: normal Rt fingers: normal Lt upper arm: normal Lt forearm: normal Lt hand: normal Lt fingers: normal Rt upper leg: normal Rt lower leg: normal Rt foot: normal Lt upper leg: normal Lt lower leg: normal Lt foot: normal Gender: Unspecified Wants to know sex: no Maternal Structures Uterus / Cervix Uterus: Visualized Cervix: Visualized Approach: Transabdominal Cervical length 40.9 mm Other: Patient declined transvaginal ultrasound for cervical length. Ovaries / Tubes / Adnexa Rt ovary: Not visualized Lt ovary: Not visualized Performed By: Allie Ca RDMS, RVT Read By: Prasad Herring M.D. MATERNAL MEDICINE [facility] Radiology Study observation (narrative) [facility] CBC W Auto Differential pane l (Bld)on 10-22-2024 Basophils (Bld) [#/Vol] 0.04 10*3/uL Normal <0.11 [facility] Comment on above: Order Comment: Speci men Type: BLOOD SPECIMEN Ordering Facility: [facility] Address: [address] [place], [place] [id number] Performed By: #### 5 7021-8 #### [facility] CLIA [id number] [address] [place] [address] [place] Basophils/100 WBC (Bld) 0.5 % Normal [facility] Comment on above: Order Comment: Speci men Type: BLOOD SPECIMEN Ordering Facility: [facility] Address: [address] [place] [address] Performed By: #### 5 7021-8 #### [facility] CLIA [id number] [address] [place] [address] [place] Differential cell count method Nom (Bld) Auto Normal [facility] Comment on above: Order Comment: Speci men Type: BLOOD SPECIMEN Ordering Facility: [facility] Address: [address] [place] [address] Performed By: #### 5 7021-8 #### [facility] CLIA [id number] [address] [place] [address] [place] Eosinophils (Bld) [#/Vol] 0.21 10*3/uL Normal <0.46 [facility] Comment on above: Order Comment: Speci men Type: BLOOD SPECIMEN Ordering Facility: [facility] Address: [address] [place] [address] Performed By: #### 5 7021-8 #### [facility] CLIA [id number] [address] [place] [address] [place] Eosinophils/100 WBC (Bld) 2.8 % Normal [facility] Comment on above: Order Comment: Speci men Type: BLOOD SPECIMEN Ordering Facility: [facility] Address: [address] [place] [address] Performed By: #### 5 7021-8 #### [facility] CLIA [id number] [address] [place] [address] [place] Erythrocyte distribution width (RBC) [Ratio] 12.8 % Normal 11.5-15.0 [facility] Comment on above: Order Comment: Speci men Type: BLOOD SPECIMEN Ordering Facility: [facility] Address: [address] [place] [address] Performed By: #### 5 7021-8 #### [facility] CLIA [id number] [address] [place] [address] [place] Hematocrit (Bld) [Volume fraction] 37.2 % Normal 36.0-46.0 [facility] Comment on above: Order Comment: Speci men Type: BLOOD SPECIMEN Ordering Facility: [facility] Address: [address] [place] [address] Performed By: #### 5 7021-8 #### [facility] CLIA [id number] [address] [place] [address] [place] Hemoglobin (Bld) [Mass/Vol] 12.8 g/dL Normal 11.5-15.5 [facility] Comment on above: Order Comment: Speci men Type: BLOOD SPECIMEN Ordering Facility: [facility] Address: [address] [place] [address] Performed By: #### 5 7021-8 #### [facility] CLIA [id number] [address] [place] [address] [place] Immature granulocytes (Bld) [#/Vol] 10*3/uL Normal <0.10 [facility] Comment on above: Order Comment: Speci men Type: BLOOD SPECIMEN Ordering Facility: [facility] Address: [address] [place] [address] Performed By: #### 5 7021-8 #### [facility] CLIA [id number] [address] [place] [address] [place] Immature granulocytes/100 WBC (Bld) 0.3 % Normal [facility] Comment on above: Order Comment: Speci men Type: BLOOD SPECIMEN Ordering Facility: [facility] Address: [address] [place] [address] Performed By: #### 5 7021-8 #### [facility] CLIA [id number] [address] [place] [address] [place] Lymphocytes (Bld) [#/Vol] 1.42 10*3/uL Normal 1.00-4.00 [facility] Comment on above: Order Comment: Speci men Type: BLOOD SPECIMEN Ordering Facility: [facility] Address: [address] [place] [address] Performed By: #### 5 7021-8 #### [facility] CLIA [id number] [address] [place] [address] [place] Lymphocytes/100 WBC (Bld) 19.1 % Normal [facility] Comment on above: Order Comment: Speci men Type: BLOOD SPECIMEN Ordering Facility: [facility] Address: [address] [place] [address] Performed By: #### 5 7021-8 #### [facility] CLIA [id number] [address] [place] [address] [place] MCH (RBC) [Entitic mass] 30.5 pg Normal 26.0-34.0 [facility] Comment on above: Order Comment: Speci men Type: BLOOD SPECIMEN Ordering Facility: [facility] Address: [address] [place] [address] Performed By: #### 5 7021-8 #### [facility] CLIA [id number] [address] [place] [address] [place] MCHC (RBC) [Mass/Vol] 34.4 g/dL Normal 30.5-36.0 [facility] Comment on above: Order Comment: Speci men Type: BLOOD SPECIMEN Ordering Facility: [facility] Address: [address] [place] [address] Performed By: #### 5 7021-8 #### [facility] CLIA [id number] [address] [place] [address] [place] MCV (RBC) [Entitic vol] 88.6 fL Normal 80.0-100.0 [facility] Comment on above: Order Comment: Speci men Type: BLOOD SPECIMEN Ordering Facility: [facility] Address: [address] [place] [address] Performed By: #### 5 7021-8 #### [facility] CLIA [id number] [address] [place] [address] [place] Monocytes (Bld) [#/Vol] 0.37 10*3/uL Normal <0.87 [facility] Comment on above: Order Comment: Speci men Type: BLOOD SPECIMEN Ordering Facility: [facility] Address: [address] [place] [address] Performed By: #### 5 7021-8 #### [facility] CLIA [id number] [address] [place] [address] [place] Monocytes/100 WBC (Bld) 5.0 % Normal [facility] Comment on above: Order Comment: Speci men Type: BLOOD SPECIMEN Ordering Facility: [facility] Address: [address] [place] [address] Performed By: #### 5 7021-8 #### [facility] CLIA [id number] [address] [place] [address] [place] Neutrophils (Bld) [#/Vol] 5.38 10*3/uL Normal 1.45-7.50 [facility] Comment on above: Order Comment: Speci men Type: BLOOD SPECIMEN Ordering Facility: [facility] Address: [address] [place] [address] Performed By: #### 5 7021-8 #### [facility] CLIA [id number] [address] [place] [address] [place] Neutrophils/100 WBC (Bld) 72.3 % Normal [facility] Comment on above: Order Comment: Speci men Type: BLOOD SPECIMEN Ordering Facility: [facility] Address: [address] [place] [address] Performed By: #### 5 7021-8 #### [facility] CLIA [id number] [address] [place] [address] [place] Nucleated RBC (Bld) [#/Vol] 10*3/uL Normal <0.01 [facility] Comment on above: Order Comment: Speci men Type: BLOOD SPECIMEN Ordering Facility: [facility] Address: [address] [place] [address] Performed By: #### 5 7021-8 #### [facility] CLIA [id number] [address] [place] [address] [place] Nucleated RBC/100 WBC (Bld) [Ratio] 0.0 /100 WBC Normal [facility] Comment on above: Order Comment: Speci men Type: BLOOD SPECIMEN Ordering Facility: [facility] Address: [address] [place] [address] Performed By: #### 5 7021-8 #### [facility] CLIA [id number] [address] [place] [address] [place] Platelet mean volume (Bld) [Entitic vol] 9.9 fL Normal 9.0-12.7 [facility] Comment on above: Order Comment: Speci men Type: BLOOD SPECIMEN Ordering Facility: [facility] Address: [address] [place] [address] Performed By: #### 5 7021-8 #### [facility] CLIA [id number] [address] [place] [address] [place] Platelets (Bld) [#/Vol] 211 10*3/uL Normal 150-400 [facility] Comment on above: Order Comment: Speci men Type: BLOOD SPECIMEN Ordering Facility: [facility] Address: [address] [place] [address] Performed By: #### 5 7021-8 #### [facility] CLIA [id number] [address] [place] [address] [place] RBC (Bld) [#/Vol] 4.20 10*6/uL Normal 3.90-5.[address] [facility] Comment on above: Order Comment: Speci men Type: BLOOD SPECIMEN Ordering Facility: [facility] Address: [address] [place] [address] Performed By: #### 5 7021-8 #### [facility] CLIA [id number] [address] [place] [address] WBC (Bld) [#/Vol] 7.44 10*3/uL Normal 3.70-11.[address] [facility] Comment on above: Order Comment: Speci men Type: BLOOD SPECIMEN Ordering Facility: [facility] Address: [address] [facility] [place] [address] Performed By: #### 5 7021-8 #### [facility] CLIA [id number] [address] [place] [address] Examination level ultrasound on 10-22-2024 Indication First trimester anatomic survey Impression remote read The patient is referred for a first trimester anatomy scan including nuchal translucency measurement as clinically indicated. - Single, live, intrauterine . - [place] rump length measurement is consistent with the established gestational age. - No malformations visualized on a complete first trimester anatomic assessment. - The nuchal translucency measurement is 1.5 mm. - Not all structural malformations can be detected by ultrasound examination. - An anatomic survey at 18-20 weeks is recommended given no identified risk factors. Recommendations - An anatomic survey at 18-20 weeks given no identified risk factors. - Additional follow up as clinically indicated. Maternal Assessment Height 163 cm Height (ft) 5 ft Height (in) 4 in Physical Exam Initial weight (lb) 104 lb Initial BMI 17.85 kg/m Method Transabdominal ultrasound examination Valenzuela . Number of fetuses: 1 Dating LMP on: 07/30/2024 GA by LMP 12 w + 0 d VICKY by LMP: 05/06/2025 Ultrasound examination on: 10/22/2024 GA by U/S based upon: CRL GA by U/S 12 w + 3 d VICKY by U/S: 05/03/2025 Assigned: based on the LMP, selected on 09/25/2024 Assigned GA 12 w + 0 d Assigned VICKY: 05/06/2025 General Evaluation Cardiac activity present Placenta: anterior Cord vessels: 3 vessel cord Amniotic fluid: normal amount Biometry Standard FHR 165 bpm CRL 58.6 mm 12w 3d 66% Hadlock NT 1.50 mm First Trimester Anatomy Calvarium: normal Falx cerebri: normal Choroid plexus: normal Profile: normal Nasal bone: normal Retronasal triangle: normal Maxilla: normal Mandible: normal Nuchal translucency: Unremarkable Situs: normal Cardiac position: normal Cardiac axis: normal 4-chamber view: normal 4-chamber view with color: normal 0-fosmha-sfnxdiw view: normal Abdominal cord insertion: normal Stomach: normal Kidneys: normal Bladder: normal Color doppler of perivesical umbilical arteries: normal Vertebral alignment: normal Arms: normal Hands: normal Legs: normal Feet: normal Maternal Structures Uterus / Cervix Uterus: Visualized Ovaries / Tubes / Adnexa Rt ovary: Normal Rt ovary D1 24 mm Rt ovary D2 20 mm Rt ovary D3 17 mm Rt ovary Vol 4.3 cm Lt ovary: Normal Lt ovary D1 35 mm Lt ovary D2 26 mm Lt ovary D3 17 mm Lt ovary Vol 8.3 cm Performed By: Emily Baltazar RDMS Read By: Cherelle Reilly M.D. MATERNAL MEDICINE [facility] Radiology Study observation (narrative) [facility] HBV surface Ag Ser Qlon 10-05 HBV surface Ag Ql (S) Negative Normal Negative [facility] Comment on above: Order Comment: Speci men Type: BLOOD SPECIMEN Ordering Facility: [facility] Address: [address] [place] [address] Performed By: #### 3 1201-7, 69122-3, 5195-3 #### [facility] CLIA [id number] [address] [place] [address] OF [facility] HCV Ab Ser Qlon 10-22-2024 HCV Ab Ql (S) Negative Normal Negative [facility] Comment on above: Order Comment: Speci men Type: BLOOD SPECIMEN Ordering Facility: [facility] Address: [address] [place] [address] Result Comment: The result suggests no evidence of infection with Hepatitis C virus. Should recent infection be suspected, repeat testing may be considered 4-6 weeks after this draw. Performed By: #### 1 6128-1 #### [facility] CLIA [id number] [address] [place] [address] [place] HIV 1+2 Ab IA Qlon 5 HIV 1 and 2 Ab IA.rapid Nom (S/P/Bld) Normal [facility] Comment on above: Order Comment: Speci men Type: BLOOD SPECIMEN Ordering Facility: [facility] Address: [address] [place] [address] Result Comment: Test not indicated. Performed By: #### 3 1201-7, 22556-8, 5195-3 #### [facility] CLIA [id number] [address] [place] [address] [place] HIV 1+2 Ab+HIV1 p24 Ag IA Ql Non-Reactive Normal Nonreactive [facility] Comment on above: Order Comment: Speci men Type: BLOOD SPECIMEN Ordering Facility: [facility] Address: [address] [place] [address] Performed By: #### 3 1201-7, 64489-6, 5195-3 #### [facility] CLIA [id number] [address] [place] [address] [place] HIV immunoassay testing algorithm interpretation (S/P/Bld) [Interp] Normal [facility] Comment on above: Order Comment: Speci men Type: BLOOD SPECIMEN Ordering Facility: [facility] Address: [address] [place] [address] Result Comment: No e vidence of HIV-1 or HIV-2 infection. Should recent infection be suspected, repeat testing may be considered 2-3 weeks after this draw. [place] Rev. Code 3701.243(E): This information has been disclosed to you from confidential records protected from disclosure by state law. You shall make no further disclosure of this information without the specific, written, and informed release of the individual to whom it pertains or as otherwise permitted by state law. A general authorization for the release of medical or other information is not sufficient for the purpose of the release of HIV test results or diagnoses. Performed By: #### 3 1201-7, 41469-6, 5195-3 #### [facility] CLIA [id number] [address] [place] [address] OF [place] HbA1c (Bld)on 10-22-2024 Average glucose Estimated from glycated hemoglobin (Bld) [Mass/Vol] 100 mg/dL Normal [facility] Comment on above: Order Comment: Nanda davis Type: BLOOD SPECIMEN Ordering Facility: [facility] Address: [address] [place] [address] Result Comment: eAG: (Estimated average glucose) is a calculated value from HgbA1c and is client account representative of the average blood glucose level in the last 2-3 month period. Performed By: #### 5 5454-3 #### [facility] CLIA [id number] [address] [place] [address] HbA1c (Bld) [Mass fraction] 5.1 % Normal 4.3-5.6 [facility] Comment on above: Order Comment: Nanda [facility] Type: BLOOD SPECIMEN Ordering Facility: [facility] Address: [address] [place] [address] Result Comment: Amer [place] Diabetes Association guidelines indicate that patients with HgbA1c in the range 5.7-6.4% are at increased risk for development of diabetes, and intervention by lifestyle modification may be beneficial. HgbA1c greater or equal to 6.5% is considered diagnostic of diabetes. Performed By: #### 5 5454-3 #### [facility] CLIA [id number] [address] [place] [address] OF [place] RUBELLA IGG ANTIBODYon 10-22 RUBELLA IGG AB, QUAL Positive Normal Positive [facility] Comment on above: Order Comment: Speci [facility] Type: BLOOD SPECIMEN Ordering Facility: [facility] Address: [address] [place] [address] Result Comment: The result suggests recent or past exposure to Rubella virus or history of Rubella vaccination. Positive result may also be seen due to presence of passively-transferred antibodies. Please correlate with patient's history. Performed By: #### R UBIGG #### [facility] CLIA [id number] [address] [place], [place] [address] [place] Reagin and Treponema pallidu m IgG and IgM [Interp]on 10-22-2024 T. pallidum IgG+IgM IA Ql (S) Non-Reactive Normal Nonreactive [facility] Comment on above: Order Comment: Speci men Type: BLOOD SPECIMEN Ordering Facility: [facility] Address: [address] [place] [address] Performed By: #### 3 1201-7, 62140-7, 5195-3 #### [facility] CLIA [id number] [address] [place] [address] [place] Reagin+T pallidum IgG+IgM Se rPl-Impon 10-22-2024 Reagin and Treponema pallidum IgG and IgM [Interp] Cannot exclude recent Treponemal infection if specimen collected within 7-10 days after appearance of suspect lesions or 2-3 weeks after an exposure. Clinical correlation is required. Normal [facility] Comment on above: Order Comment: Speci men Type: BLOOD SPECIMEN Ordering Facility: [facility] Address: [address] [place] [address] Performed By: #### 3 1201-7, 65120-0, 5195-3 #### [facility] CLIA [id number] [address] [place] [address] [place] TYPE + SCREEN PRENATALon ABO O Normal [facility] Comment on above: Order Comment: Speci men Type: BLOOD SPECIMEN Ordering Facility: [facility] Address: [address] [place] [address] Performed By: #### 3 1201-7, 59961-2, 5195-3 #### [facility] CLIA [id number] [address] [place] [address] [place] Rh Nom (Bld) Positive Normal [facility] Comment on above: Order Comment: Speci men Type: BLOOD SPECIMEN Ordering Facility: [facility] Address: [address] [place], [place] [id number] Result Comment: Mario ected result: Previously reported as Invalid on 10/22/2024 at 6:52 PM EDT. Performed By: #### 3 1201-7, 70288-0, 5195-3 #### [facility] CLIA [id number] [address] [place] [address] [place] TYPE AND SCREEN EXPIRATION 10/25/2024 23:59 Normal [facility] Comment on above: Order Comment: Speci men Type: BLOOD SPECIMEN Ordering Facility: [facility] Address: [address] [place] [address] Performed By: #### 3 1201-7, 67954-9, 5195-3 #### [facility] CLIA [id number] [address] [place] [address] [place] Bacteria Ur Culton Bacteria identified Cx Nom (U) ORGANISM ID: 1 50,000-<100,000 CFU/ml Lactobacillus jensenii Normal urogenital basim No further workup Normal [facility] Comment on above: Performed By: #### 3 1201-7, 42456-7, 5195-3 #### [facility] CLIA [id number] [address] [place] [address] [place] C. trachomatis+N. gonorrhoea e DNA MARC+probe Ql (Unsp spec)on 09-25-2024 C. trachomatis rRNA MARC+probe Ql (Unsp spec) Not detected Normal Not detected [facility] Comment on above: Order Comment: Speci men Type: SWAB Ordering Facility: [facility] Address: [address] [place] [address] Performed By: #### 3 6902-5, TRVAMP #### [facility] CLIA [id number] [address] [place] [address] [place] N. gonorrhoeae rRNA MARC+probe Ql (Unsp spec) Not detected Normal Not detected [facility] Comment on above: Order Comment: Speci men Type: SWAB Ordering Facility: [facility] Address: [address] [place] [address] Performed By: #### 3 6902-5, TRVAMP #### [facility] CLIA [id number] [address] [place] [address] [place] HIGH RISK HUMAN PAPILLOMA ANANYA (HPV), PCR FOR DETECTION AND GENOTYPINGon 09-25-2024 HPV 16 Ag Ql (Unsp spec) Not detected Normal Not detected [facility] Comment on above: Order Comment: Speci men Type: FLUID SPECIMEN Ordering Facility: [facility] Address: [address] [place] [address] Performed By: #### H PVHRT #### [facility] CLIA [id number] [address] [place] [address] [place] HPV 18 Ag Ql (Unsp spec) Not detected Normal Not detected [facility] Comment on above: Order Comment: Speci men Type: FLUID SPECIMEN Ordering Facility: [facility] Address: [address] [place] [address] Performed By: #### H PVHRT #### [facility] CLIA [id number] [address] [place] [address] [place] HPV 31+33+35+39+45+51+5 2+56+58+59+66+68 DNA MARC+probe Ql (Cvx) Not detected Normal Not detected [facility] Comment on above: Order Comment: Speci men Type: FLUID SPECIMEN Ordering Facility: [facility] Address: [address] [place] [address] Result Comment: High Risk HPV Other Type includes HPV types 31, 33, 35, 39, 45, 51, 52, 56, 58, 59, 66 and 68. Performed By: #### H PVHRT #### [facility] CLIA [id number] [address] [place] [address] [place] PAP TESTon 09-25-2024 ADEQUACY Normal [facility] Comment on above: Order Comment: Speci men Type: BLOOD SPECIMEN Ordering Facility: [facility] Address: [address] [place] [address] Result Comment: Sati sfactory for interpretation. Transformation zone present Performed By: #### 3 1201-7, 24447-3, 5195-3 #### [facility] CLIA [id number] [address] [place], [place] [address] [place] CASE REPORT Normal [facility] Comment on above: Order Comment: Speci men Type: BLOOD SPECIMEN Ordering Facility: [facility] Address: [address] [place] [address] Result Comment: Gyne cologic Cytology Report Case: [id number] Authorizing Provider: Cleopatra Powell APRN.GAME ARTIST Collected: 09/25/2024 11:41 AM Ordering Location: OB/Gynecology Received: 09/25/2024 02:49 PM First Screen: Yoon Luong, MALISSA, ASCP Specimen: Pap Test, ThinPrep, Cervix Performed By: #### 3 1201-7, 34046-6, 5195-3 #### [facility] CLIA [id number] [address] [place] [address] [place] CLINICAL HISTORY, CYTOLOGY, WELL DRILL OPERATOR CABLE TOOL Routine Exam Normal [facility] Comment on above: Order Comment: Speci men Type: BLOOD SPECIMEN Ordering Facility: [facility] Address: [address] [place] [address] Performed By: #### 3 1201-7, 32173-5, 5195-3 #### [facility] CLIA [id number] [address] [place], [place] [address] [place] FINAL PERFORMING LAB Normal [facility] Comment on above: Order Comment: Speci men Type: BLOOD SPECIMEN Ordering Facility: [facility] Address: [address] [place] [address] Result Comment: Tech nical component, rug clipper screening performed at: [facility], [address] [place] [address] CLIA: [id number] Diagnostic interpretation performed at: [facility], [address] [facility] [address] CLIA# [id number] Powder Mill Operator: Fawad Porter MD Performed By: #### 3 1201-7, 55306-9, 53 #### [facility] CLIA [id number] [address] [address] [place] INTERPRETATION, CYTOLOGY, WELL DRILL OPERATOR CABLE TOOL Normal [facility] Comment on above: Order Comment: Speci men Type: BLOOD SPECIMEN Ordering Facility: [facility] Address: [address] [place] [address] Result Comment: Nega tive for intraepithelial lesion or malignancy. at 1058 EDT Performed By: #### 3 1201-7, 09218-8, 3 #### [facility] CLIA [id number] [address] [place] [address] [place] LMP 07/30/2024 Normal [facility] Comment on above: Order Comment: Speci men Type: BLOOD SPECIMEN Ordering Facility: [facility] Address: [address] [place] [address] Performed By: #### 3 1201-7, 57628-3, 3 #### [facility] CLIA [id number] [address] [place] [address] [place] PAP DISCLAIMER COMMENT The Pap Smear is a screening test for cervical cancer. False negative results occur with all screening tests, emphasizing the need for rescreening at recommended intervals, and clinical correlation. Normal [facility] Comment on above: Order Comment: Speci men Type: BLOOD SPECIMEN Ordering Facility: [facility] Address: [address] [place] [address] Performed By: #### 3 1201-7, 85944-8, 3 #### [facility] CLIA [id number] [address] [place], [place] [address] [place] PAP SCRAP CHARGER COMMENT This specimen has been analyzed by the FDA-approved [employer] System, which uses digital imaging and an enhanced artificial intelligence image analysis algorithm to identify swan of interest on the microscopic slide, to assist the plastic printer and pathologist in evaluating cells on ThinPrep Pap tests. Following analysis, swan of interest on the microscopic slide selected by the algorithm are reviewed by a plastic printer. If a sample requires hierarchical review, the pathologist will review the same swan of interest selected by the algorithm prior to final interpretation. Normal [facility] Comment on above: Order Comment: Speci men Type: BLOOD SPECIMEN Ordering Facility: [facility] Address: [address] [place] [address] Performed By: #### 3 1201-7, 04892-5, 5195-3 #### [facility] CLIA [id number] [address] [place] [address] [place] TRICHOMONAS VAGINALIS NAATon 09-25-2024 T. vaginalis DNA MARC+probe Ql (Unsp spec) Not detected Normal Not detected [facility] Comment on above: Order Comment: Speci men Type: SWAB Ordering Facility: [facility] Address: [address] [place] [address] Performed By: #### 3 6902-5, TRVAMP #### [facility] CLIA [id number] [address] [place] [address] [place] Absolute lymphocyte counton 12-20-2021 Lymphocytes Auto (Unsp spec) [#/Vol] 1.70 10*3/uL 0.83-4.51 [facility] Work Phone: Basophil percentageon 2021 Basophils/100 WBC (Bld) 0.4 % 0-1 [facility] Work Phone: Eosinophils/100 WBC (Bld) 2.6 % 0-5 [facility] Work Phone: Neutrophils (Bld) [#/Vol] 8.2 10*3/uL 2.0-7.7 [facility] Work Phone: Neutrophils/100 WBC (Bld) 76.7 % 47-70 [facility] Work Phone: WBC (Bld) [#/Vol] 10.7 10*3/uL 4.4-11.0 [facility] Work Phone: Blood erythrocytes count (nu mber/volume)on 12-20-2021 RBC (Bld) [#/Vol] 3.57 10*6/uL 4.2-5.4 [facility] Work Phone: Blood hemoglobin measurement (mass/volume)on 12-20-2021 Hemoglobin (Bld) [Mass/Vol] 11.3 g/dL 12.0-15.0 [facility] Work Phone: Blood lymphocytes/100 leukoc yteson 12-20-2021 Lymphocytes/100 WBC (Bld) 15.8 % 19-41 [facility] Work Phone: Blood monocytes/100 leukocyt eson 12-20-2021 Monocytes/100 WBC (Bld) 4.0 % 0-10 [facility] Work Phone: Blood platelet mean volumeon 12-20-2021 Platelet mean volume (Bld) [Entitic vol] 10.1 fL 6.2-12.0 [facility] Work Phone: Determination of erythrocyte mean corpuscular volume (MCV)on 12-20-2021 MCV (RBC) [Entitic vol] 95.8 fL 81-99 [facility] Work Phone: Gestational diabetes screen 1-hour screen with 50g oral glucose loadon 12-20-2021 Glucose 1 Hr post 50 g glucose PO [Mass/Vol] 140 mg/dL 70-140 [facility] Work Phone: Hematocrit Auto (Bld) [Volum e fraction]on 12-20-2021 Hematocrit (Bld) [Volume fraction] 34.2 % 37-47 [facility] Work Phone: Laboratory - Hematology and Cell countson 12-20-2021 Erythrocyte distribution width (RBC) [Entitic vol] 45.9 fL 35.1-43.9 [facility] Work Phone: Erythrocyte distribution width (RBC) [Ratio] 13.2 % 11.6-14.6 [facility] Work Phone: Immature granulocytes/100 WBC (Bld) 0.500 % 0.0-0.9 [facility] Work Phone: Comment on above: IG% - Immature Granu locytes (promyelocytes, myelocytes and metamyelocytes) > 1% indicates that a LEFT SHIFT is Present. MCH (RBC) [Entitic mass] 31.7 pg 27.0-32.0 [facility] Work Phone: Nucleated RBC/100 WBC (Bld) [Ratio] 0 % 0-5 [facility] Work Phone: MCHC Auto (RBC) [Mass/Vol]on 12-20-2021 MCHC (RBC) [Mass/Vol] 33.0 g/dL 32-36 [facility] Work Phone: Platelets bldon 12-20-2021 Platelets (Bld) [#/Vol] 193 10*3/uL 150-450 [facility] Work Phone: No Panel Information Group B Streptococcus Culture Group B Beta Streptococcus is not isolated. [facility] Work Phone: Vital Signs Date Time Vital Sign Value Performing Clinician Faci lity 01-15-2025 10:08-0400 Body mass index (BMI) [Ratio] 19.57 kg/m2 Gary Guzman MD Work Phone: [facility] 01-15-2025 10:08-0400 Body weight 51.71 kg Gary Guzman MD Work Phone: [facility] 01-15-2025 10:08-0400 Diastolic blood pressure 72 mm[Hg] Gary Guzman MD Work Phone: [facility] 01-15-2025 10:08-0400 Systolic blood pressure 110 mm[Hg] Gary Guzman MD Work Phone: [facility] 12-18-2024 09:12-0400 Body mass index (BMI) [Ratio] 18.71 kg/m2 Cleopatra Haury CHANNEL SALES DIRECTOR.GAME ARTIST Work Phone: [facility] 12-18-2024 09:12-0400 Body weight 49.44 kg Cleopatra Haury CHANNEL SALES DIRECTOR.GAME ARTIST Work Phone: [facility] 12-18-2024 09:12-0400 Diastolic blood pressure 60 mm[Hg] Cleopatra Haury CHANNEL SALES DIRECTOR.GAME ARTIST Work Phone: [facility] 12-18-2024 09:12-0400 Systolic blood pressure 108 mm[Hg] Cleopatra Haury CHANNEL SALES DIRECTOR.GAME ARTIST Work Phone: [facility] 11-20-2024 07:57-0400 Body mass index (BMI) [Ratio] 18.02 kg/m2 Cleopatra Haury CHANNEL SALES DIRECTOR.GAME ARTIST Work Phone: [facility] 11-20-2024 07:57-0400 Body weight 47.63 kg Cleopatra Haury CHANNEL SALES DIRECTOR.GAME ARTIST Work Phone: [facility] 11-20-2024 07:57-0400 Diastolic blood pressure 60 mm[Hg] Cleopatra Haury CHANNEL SALES DIRECTOR.GAME ARTIST Work Phone: [facility] 11-20-2024 07:57-0400 Systolic blood pressure 108 mm[Hg] Cleopatra Haury CHANNEL SALES DIRECTOR.GAME ARTIST Work Phone: [facility] 10-22-2024 09:26-0400 Body mass index (BMI) [Ratio] 18.4 kg/m2 Emy Plotts CHANNEL SALES DIRECTOR.CNM Work Phone: [facility] 10-22-2024 09:26-0400 Body weight 48.63 kg Emy Plotts CHANNEL SALES DIRECTOR.CNM Work Phone: [facility] 10-22-2024 09:26-0400 Diastolic blood pressure 62 mm[Hg] Emy Plotts CHANNEL SALES DIRECTOR.CNM Work Phone: [facility] 10-22-2024 09:26-0400 Systolic blood pressure 110 mm[Hg] Emy Plotts CHANNEL SALES DIRECTOR.CNM Work Phone: [facility] Encounters Encounter Date Encounter Type Care Provider Facility Start: 05-01-2025 ambulatory [facility] Facility:[facility] Start: 01-15-2025 End: 01-15-2025 Patient encounter procedure Gary Guzman MD Work Phone: OB/Gynecology Comment on above: Screening for diabet es mellitus (Primary Dx); Supervision of high risk in second trimester (HCC); 24 weeks gestation of (HCC) Start: 01-15-2025 End: 01-15-2025 ambulatory GARY GUZMAN Facility:[facility] Start: 12-18-2024 End: 12-22-2024 Telephone encounter Cleopatra Powell APRN.GAME ARTIST Work Phone: OB/Gynecology Comment on above: C/S Start: 12-18-2024 End: 12-18-2024 Patient encounter procedure Cleopatra Powell APRN.GAME ARTIST Work Phone: OB/Gynecology Comment on above: Supervision of high risk in second trimester (HCC) (Primary Dx); 20 weeks gestation of (HCC); History of section Encounter for superv ision of high risk in first trimester, antepartum (HCC) (Primary Dx); 20 weeks gestation of (HCC) Start: 12-18-2024 End: 12-18-2024 ambulatory CLEOPATRA POWELL Facility:[facility] Start: 11-20-2024 End: 11-20-2024 Patient encounter procedure Cleopatra Powell APRN.GAME ARTIST Work Phone: OB/Gynecology Comment on above: Encounter for superv ision of high risk in first trimester, antepartum (HCC) (Primary Dx); 16 weeks gestation of (HCC); History of section Start: 11-20-2024 End: 11-20-2024 ambulatory CLEOPATRA POWELL Facility:[facility] Start: 10-22-2024 End: 10-22-2024 ambulatory CLEOPATRA POWELL Facility:[facility] Start: 10-22-2024 End: 10-22-2024 Patient encounter procedure [employer] 1 [employer] Graphic Design[employer] [facility] Comment on above: Encounter for superv ision of high risk in first trimester, antepartum (HCC) Encounter for superv ision of high risk in first trimester, antepartum (HCC) (Primary Dx); 12 weeks gestation of (HCC); History of section Start: 10-22-2024 End: 10-22-2024 ambulatory CLEOPATRA POWELL Facility:[facility] Start: 09-26-2024 End: 11-26-2024 Follow-up encounter Cleopatra Powell APRN.CNP Work Phone: OB/Gynecology Start: 09-25-2024 End: 09-25-2024 ambulatory SELF Facility:[facility] Start: 02-21-2022 End: 02-21-2022 ambulatory [facility] Work Phone: Start: 02-21-2022 End: 02-21-2022 Patient encounter procedure [facility], Specimen Start: 12-20-2021 End: 12-20-2021 Patient encounter procedure [facility], [employer] 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 Procedures Date Procedure Procedure Detail Performing Clinician Start: 12-18-2024 Us preg uterus after 1st trimest 05/07 gestation Cleopatra Powell APRN.GAME ARTIST Work Phone: Start: 10-22-2024 Antibody screen CLEOPATRA H YOSELYN Comment on above: Order Comment: Speci men Type: BLOOD SPECIMEN Ordering Facility: [facility] Address: [address] [place] [address] Performed By: #### 3 1201-7, 71645-8, 5195-3 #### [facility] CLIA [id number] [address] [place] [address] [place] Start: 10-22-2024 Us preg uterus after 1st trimest 05/07 gestation Cleopatra Powell APRN.GAME ARTIST Work Phone: Start: 09-25-2024 H/O: section History of section Whi Mob Group B Streptococcu s Culture H/O: section History of section Emy Edge APRN.CNM Work Phone: H/O: section History of section Cleopatra Powell APRN.GAME ARTIST Work Phone: H/O: section History of section Cleopatra Powell RAMESH.GAME ARTIST Work Phone: Plan of Treatment Date Care Activity Detail Author Start: 09-25-2029 Screening for malign ant neoplasm of cervix Cervical Cancer Screening [facility] Start: 05-08-2025 End: 05-08-2025 Patient encounter procedure 05/08/2025 10:30 AM EST Office Visit OB/Gynecology [address] [place], [place] [address] Karely Ernst MD [address] [place] [address] 1 week incision check OB/Gynecology Comment on above: 1 week incision chec k Start: 04-17-2025 End: 04-17-2025 Patient encounter procedure 04/17/2025 10:30 AM EST Routine Office Visit OB/Gynecology [address] [place], [place] [id number] Karely Ernst MD [address] [place] [address] OB Pre Op C/S 05/[address] [facility] OB/Gynecology Comment on above: OB Pre Op C/S 05/[address] [facility] Start: 03-11-2025 RSV Vaccine (1 - Ris k 1-dose series) RSV Vaccine (1 - Risk 1-dose series) [facility] Start: 02-12-2025 End: 02-12-2025 Patient encounter procedure 02/12/2025 10:50 AM EDT Routine Office Visit OB/Gynecology [address] [place], [place] [id number] Karely Ernst MD [address] [place] [id number] OB OB/Gynecology Comment on above: OB Start: 01-15-2025 End: 04-16-2025 ANEMIA REFLEX PANEL ANEMIA REFLEX PANEL Lab Routine Supervision of high risk in second trimester (HCC) Expected: 01/15/2025, Expires: 04/16/2025 [facility] Comment on above: Expected: 01/15/2025 , Expires: 04/16/2025 Start: 01-15-2025 End: 01-15-2026 GESTATIONAL GLUCOSE SCREEN, 1-HOUR, 50 GRAM, NON-FASTING GESTATIONAL GLUCOSE SCREEN, 1-HOUR, 50 GRAM, NON-FASTING Lab Routine Screening for diabetes mellitus Expected: 01/15/2025, Expires: 01/15/2026 [facility] Work Phone: Comment on above: Expected: 01/15/2025 , Expires: 01/15/2026 Start: 01-15-2025 End: 01-15-2026 SYPHILIS TREPONEMAL W/REFLEX SYPHILIS TREPONEMAL W/REFLEX Lab Routine Supervision of high risk in second trimester (HCC) Expected: 01/15/2025, Expires: 01/15/2026 [facility] Comment on above: Expected: 01/15/2025 , Expires: 01/15/2026 Start: 01-15-2025 End: 01-15-2025 Patient encounter procedure 01/15/2025 9:50 AM EDT Routine Office Visit OB/Gynecology [address] [place] [id number] Gary Guzman MD [address] [address] OB OB/Gynecology Comment on above: OB Start: 01-05-2025 Influenza vaccination [facility] Start: 12-18-2024 End: 12-18-2024 Patient encounter procedure [facility] Comment on above: Anatomy Scan Anatomy/ OB Start: 11-20-2024 End: 11-20-2024 Patient encounter procedure 11/20/2024 8:00 AM EDT Routine Office Visit OB/Gynecology [address] [place] [place] [id number] Cleopatra Powell, RAMESH.GAME ARTIST [address] [place] [address] Ob Visit OB/Gynecology Comment on above: Ob Visit Start: 01-06-2024 Covid-19 Vaccine (1 - 2024-25 season) Covid-19 Vaccine ( season) [facility] Start: 2017 HPV Vaccine (1 - 3-d ose SCDM series) HPV Vaccine (1 - 3-dose SCDM series) [facility] Start: 2009 Hepatitis B Vaccine (1 of 3 - 19+ 3-dose series) Hepatitis B Vaccine (1 of 3 - 19+ 3-dose series) [facility] Start: 2009 Urine microalbumin profile DTaP,Tdap,Td Vaccine (1 - Tdap) [facility] Start: 2008 Anxiety Screening Anxiety Screening [facility] Start: 2008 Depression Screening Depression Scre ening [facility] Start: 2008 Hepatitis C screening Hepatitis C Sc reening [facility] Start: 2008 HIV screening HIV Screening [facility] Payers Date Payer Category Payer Self-pay [id number] 2024 Unknown [id number] 2024 Private Health Insurance [employer] [id number] 2024 Unknown [id number] Unknown [id number] Social History Date Type Detail Facility Start: 05-10-2021 Tobacco smoking stat us [facility]IS Unknown if ever smoked [facility] Work Phone: Start: 1990 Sex Assigned At Female [facility] Work Phone: Start: 09-23-2024 [facility] Start: 09-23-2024 Tobacco use and exposure Smokeless tobacco non-user [facility] Start: 10-22-2024 End: 01-15-2025 Alcoholic beverage intake Ex-drinker (finding) [facility] Start: 10-22-2024 End: 01-08-2025 History of Social function [facility] Start: 10-22-2024 End: 01-08-2025 Tobacco use panel [facility] Start: 09-05-2024 National Score (1-10 0), lower number is lower risk 69 [facility] Start: 08-13-2024 [facility] Start: 1990 Sex assigned at Not on file [facility] Goals Date Patient Goal Desired Activity /State Personal health goal Clinical Notes 09-23-2024 to 01-15-2025 Gary Guzman MD - 01/15/2025 10:17 AM EDTPatient InstructionsTelephone Encounter - Yoon Mena RN - 12/19/2024 4:55 PM EDTTelephone Encounter - Yoon Mena RN - 12/19/2024 4:55 PM EDT Note Date & Type Note Facility 01-15-2025 Note HNO ID: [id number] Author: GARY GUZMAN MD Service: ? Author Type: Physician Type: Progress Notes Filed: 01/15/2025 10:24 Note Text: SW- Pt doing well. No pain, vb, lof. Good FM PE: Gen- NAD, well appearing Abd- Soft, gravid, NT See flowsheet A/p 24 wk gestation - MOD: Discussed r/b/a TOLAC vs repeat C/S. Patient planning repeat C/S - 28 wk labs ordered - RTO 4 wks Gary Guzman DO [facility] 01-15-2025 History of Presen t illness Narrative SW- Pt doing well. No pain, vb, lof. Good FM PE: Gen- NAD, well appearing Abd- Soft, gravid, NT See flowsheet A/p 24 wk gestation - MOD: Discussed r/b/a TOLAC vs repeat C/S. Patient planning repeat C/S - 28 wk labs ordered - RTO 4 wks Gary Guzman DO documented in this encounter [facility] 01-15-2025 Instructions Huong Clark RN - 01/15/2025 10:01 AM EDT SEQUENTIAL SCREENINGS The [facility] offers sequential screenings for women who are interested in screenings for chromosomal abnormalities and certain defects during a . The sequential screen combines ultrasound and blood tests to determine the risk of chromosomal abnormalities, including Down's Syndrome (Trisomy 21) and Trisomy 18, as well as open neural tube defects including spina bifida. Ultrasound examination is performed between 11 weeks and 13 weeks gestational age. Blood tests are drawn after the ultrasound and again later in the between 15 and 21 weeks gestational age. Please let your physician know if you are interested in this testing. It will require an appointment with our inspector technician. This is not an ultrasound performed by a physician in our office during a routine visit. SIGNS AND SYMPTOMS OF LABOR 1. Contractions every 10 minutes or more often 2. Clear, pink, or brownish fluid (water) leaking from vagina 3. Feeling that baby is pushing down, pressure 4. Low, dull backache 5. Cramps that feel like a period 6. Cramps with or without diarrhea If you notice any of the above symptoms, contact our office at [phone] and ask to speak with a nurse. After hours, you can call doctors registry at [phone] OR call [facility] at [phone] and ask to have the doctor diffusion furnace operator paged. If you consider this an emergency, dial 01-05- or go to your nearest emergency department. NEED HELP? Are you dealing with a violent or abusive relationship? Are you a victim of rape or sexual assult? Call [facility] ([place]) 24 hour Crisis Hotline: 961.149.7312 or 185-647-7432. MANUAL Your Guide to a Healthy manual is now on-line. Visit [email or web address] to download your free copy documented in this encounter [facility] 12-19-2024 Telephone encount er Note KJ is back up call on 05/01. Surgery sheet to KJ. Yoon Mena RN [facility] 12-19-2024 Miscellaneous Notes Formattin g of this note might be different from the original. KJ is back up call on 05/01. Surgery sheet to ANJELICA. Yoon Mena RN I am planning on being out -07 of May. So I can't promise I will do it. I might not be out. Nyasia Luong MD RR is in surgery on 05/01. C/S schedule is open. Yoon Mena RN VICKY 05/06. Planning for repeat c/s. Would like Dr. Luong. 39 weeks makes her 04/29. Would prefer to avoid [place]. Wondering when she could have her repeat c/s with Dr. Luong. Cleopatra Powell APRN.GAME ARTIST documented in this encounter [facility] 12-19-2024 Telephone encount er Note I am planning on being out -07 of May. So I can't promise I will do it. I might not be out. Nyasia Luong MD [facility] Work Phone: 12-18-2024 Telephone encount er Note RR is in surgery on 05/01. C/S schedule is open. Yoon Mena, RN [facility] 12-18-2024 Telephone encount er Note VICKY 05/06. Planning for repeat c/s. Would like Dr. Luong. 39 weeks makes her 04/29. Would prefer to avoid [place] Clarissa. Wondering when she could have her repeat c/s with Dr. Luong. Cleopatra Powell APRN.GAME ARTIST [facility] 12-18-2024 Progress note Formatting of t his note might be different from the original. EH - S: Chyna is a 34 year old female who presents at 20w1d for a routine visit. Feeling movement. Denies headache, visual changes, chest pain, shortness of breath, vaginal bleeding, leakage of fluid, or dysuria. Feeling well, no complaints. O: See flow sheet Gen: No apparent distress Abd: Gravid, nontender ASSESSMENT/PLAN: 1. Supervision of high risk in second trimester (HCC) - ICD9: V23.9, ICD10: O09.92 (primary diagnosis) - Continue PNV 2. 20 weeks gestation of (HCC) - ICD9: V22.2, ICD10: Z3A.20 - Anatomy today, report pending 3. History of section - ICD9: V45.89, ICD10: Z98.891 - Planning for repeat PTL precautions reviewed. RTO in 4 weeks or sooner as needed. Cleopatra Powell APRN.GAME ARTIST [facility] 12-18-2024 Miscellaneous Notes Formattin g of this note might be different from the original. EH - S: Chyna is a 34 year old female who presents at 20w1d for a routine visit. Feeling movement. Denies headache, visual changes, chest pain, shortness of breath, vaginal bleeding, leakage of fluid, or dysuria. Feeling well, no complaints. O: See flow sheet Gen: No apparent distress Abd: Gravid, nontender ASSESSMENT/PLAN: 1. Supervision of high risk in second trimester ([facility]) - ICD9: V23.9, ICD10: O09.92 (primary diagnosis) - Continue PNV 2. 20 weeks gestation of ([facility]) - ICD9: V22.2, ICD10: Z3A.20 - Anatomy today, report pending 3. History of section - ICD9: V45.89, ICD10: Z98.891 - Planning for repeat PTL precautions reviewed. RTO in 4 weeks or sooner as needed. Cleopatra Powell APRN.CNP documented in this encounter [facility] 12-18-2024 Instructions Latoya Guaman MA - 12/18/2024 9:03 AM EDT SEQUENTIAL SCREENINGS The [facility] offers sequential screenings for women who are interested in screenings for chromosomal abnormalities and certain defects during a . The sequential screen combines ultrasound and blood tests to determine the risk of chromosomal abnormalities, including Down's Syndrome (Trisomy 21) and Trisomy 18, as well as open neural tube defects including spina bifida. Ultrasound examination is performed between 11 weeks and 13 weeks gestational age. Blood tests are drawn after the ultrasound and again later in the between 15 and 21 weeks gestational age. Please let your physician know if you are interested in this testing. It will require an appointment with our inspector technician. This is not an ultrasound performed by a physician in our office during a routine visit. SIGNS AND SYMPTOMS OF LABOR 1. Contractions every 10 minutes or more often 2. Clear, pink, or brownish fluid (water) leaking from vagina 3. Feeling that baby is pushing down, pressure 4. Low, dull backache 5. Cramps that feel like a period 6. Cramps with or without diarrhea If you notice any of the above symptoms, contact our office at [phone] and ask to speak with a nurse. After hours, you can call doctors registry at [phone] OR call [facility] at [phone] and ask to have the doctor diffusion furnace operator paged. If you consider this an emergency, dial 9-1- or go to your nearest emergency department. NEED HELP? Are you dealing with a violent or abusive relationship? Are you a victim of rape or sexual assult? Call [facility] ([place]) 24 hour Crisis Hotline: 914.313.1973 or 996-967-5352. MANUAL Your Guide to a Healthy manual is now on-line. Visit [email or web address] to download your free copy documented in this encounter [facility] 11-20-2024 Progress note Formatting of t his note might be different from the original. EH - S: Chyna is a 34 year old female who presents at 16w1d for a routine visit. Denies headache, visual changes, chest pain, shortness of breath, vaginal bleeding, leakage of fluid, or dysuria. Feeling well, no complaints. O: See flow sheet Gen: No apparent distress Abd: Gravid, nontender ASSESSMENT/PLAN: 1. Encounter for supervision of high risk in first trimester, antepartum (HCC) - ICD9: V23.9, ICD10: O09.91 (primary diagnosis) - Continue PNV - Declines LDA 2. 16 weeks gestation of (HCC) - ICD9: V22.2, ICD10: Z3A.16 - Anatomy ultrasound next visit 3. History of section - ICD9: V45.89, ICD10: Z98.891 - Desires repeat c/s - prefers Dr. Luong PTL precautions reviewed. RTO in 4 weeks or sooner as needed. Cleopatra Powell APRN.GAME ARTIST [facility] 11-20-2024 Miscellaneous Notes Formattin g of this note might be different from the original. EH - S: Chyna is a 34 year old female who presents at 16w1d for a routine visit. Denies headache, visual changes, chest pain, shortness of breath, vaginal bleeding, leakage of fluid, or dysuria. Feeling well, no complaints. O: See flow sheet Gen: No apparent distress Abd: Gravid, nontender ASSESSMENT/PLAN: 1. Encounter for supervision of high risk in first trimester, antepartum (HCC) - ICD9: V23.9, ICD10: O09.91 (primary diagnosis) - Continue PNV - Declines LDA 2. 16 weeks gestation of ([facility]) - ICD9: V22.2, ICD10: Z3A.16 - Anatomy ultrasound next visit 3. History of section - ICD9: V45.89, ICD10: Z98.891 - Desires repeat c/s - prefers Dr. Luong PTL precautions reviewed. RTO in 4 weeks or sooner as needed. Cleopatra Powell APRN.GAME ARTIST documented in this encounter [facility] 11-20-2024 Instructions Latoya Guaman MA - 11/20/2024 7:54 AM EDT SEQUENTIAL SCREENINGS The [facility] offers sequential screenings for women who are interested in screenings for chromosomal abnormalities and certain defects during a . The sequential screen combines ultrasound and blood tests to determine the risk of chromosomal abnormalities, including Down's Syndrome (Trisomy 21) and Trisomy 18, as well as open neural tube defects including spina bifida. Ultrasound examination is performed between 11 weeks and 13 weeks gestational age. Blood tests are drawn after the ultrasound and again later in the between 15 and 21 weeks gestational age. Please let your physician know if you are interested in this testing. It will require an appointment with our inspector technician. This is not an ultrasound performed by a physician in our office during a routine visit. SIGNS AND SYMPTOMS OF LABOR 1. Contractions every 10 minutes or more often 2. Clear, pink, or brownish fluid (water) leaking from vagina 3. Feeling that baby is pushing down, pressure 4. Low, dull backache 5. Cramps that feel like a period 6. Cramps with or without diarrhea If you notice any of the above symptoms, contact our office at [phone] and ask to speak with a nurse. After hours, you can call doctors registry at [phone] OR call [facility] at [phone] and ask to have the doctor diffusion furnace operator paged. If you consider this an emergency, dial 9-1-0 or go to your nearest emergency department. NEED HELP? Are you dealing with a violent or abusive relationship? Are you a victim of rape or sexual assult? Call [facility] ([place]) 24 hour Crisis Hotline: 872.750.3821 or 912-690-4700. MANUAL Your Guide to a Healthy manual is now on-line. Visit [email or web address] to download your free copy documented in this encounter [facility] 10-22-2024 Miscellaneous Notes Formattin g of this note might be different from the original. S: Chyna Dubon is a 34 year old female who presents at 12 weeks gestation for a routine visit. Just completed 1st trimester ultrasound. Declines aneuploidy screening. Denies headache, visual changes, chest pain, shortness of breath, vaginal bleeding, leakage of fluid, or dysuria. Feeling well, no complaints. O: See flow sheet Gen: No apparent distress Abd: Gravid, non tender ASSESSMENT/PLAN: 1. Encounter for supervision of high risk in first trimester, antepartum 2. 12 weeks gestation of 3. History of section - labs today - Declines aneuploidy screening - Continue vitamin daily - Discussed ASA - undecided if will start- no risk factors - RTO 4 weeks or sooner if needed Emy Edge APRN.CNM documented in this encounter [facility] 10-22-2024 Progress note Formatting of t his note might be different from the original. S: Chyna Dubon is a 34 year old female who presents at 12 weeks gestation for a routine visit. Just completed 1st trimester ultrasound. Declines aneuploidy screening. Denies headache, visual changes, chest pain, shortness of breath, vaginal bleeding, leakage of fluid, or dysuria. Feeling well, no complaints. O: See flow sheet Gen: No apparent distress Abd: Gravid, non tender ASSESSMENT/PLAN: 1. Encounter for supervision of high risk in first trimester, antepartum 2. 12 weeks gestation of 3. History of section - labs today - Declines aneuploidy screening - Continue vitamin daily - Discussed ASA - undecided if will start- no risk factors - RTO 4 weeks or sooner if needed Emy Edge APRN.CNM [facility] 10-22-2024 Instructions Natty Camacho LPN - 10/22/2024 9:06 AM EDT SEQUENTIAL SCREENINGS The [facility] offers sequential screenings for women who are interested in screenings for chromosomal abnormalities and certain defects during a . The sequential screen combines ultrasound and blood tests to determine the risk of chromosomal abnormalities, including Down's Syndrome (Trisomy 21) and Trisomy 18, as well as open neural tube defects including spina bifida. Ultrasound examination is performed between 11 weeks and 13 weeks gestational age. Blood tests are drawn after the ultrasound and again later in the between 15 and 21 weeks gestational age. Please let your physician know if you are interested in this testing. It will require an appointment with our inspector technician. This is not an ultrasound performed by a physician in our office during a routine visit. SIGNS AND SYMPTOMS OF LABOR 1. Contractions every 10 minutes or more often 2. Clear, pink, or brownish fluid (water) leaking from vagina 3. Feeling that baby is pushing down, pressure 4. Low, dull backache 5. Cramps that feel like a period 6. Cramps with or without diarrhea If you notice any of the above symptoms, contact our office at [phone] and ask to speak with a nurse. After hours, you can call [employer] registry at [phone] OR call [facility] at [phone] and ask to have the doctor diffusion furnace operator paged. If you consider this an emergency, dial 6-3-8 or go to your nearest emergency department. NEED HELP? Are you dealing with a violent or abusive relationship? Are you a victim of rape or sexual assult? Call [facility] ([place]) 24 hour Crisis Hotline: 676.951.9193 or 976-735-7250. MANUAL Your Guide to a Healthy manual is now on-line. Visit [email or web address] to download your free copy documented in this encounter [facility] 09-23-2024 Note HNO ID: [id number] Author: CLEOPATRA POWELL APRN.GAME ARTIST Service: ? Author Type: Nurse Practitioner Type: Progress Notes Filed: 09/25/2024 15:47 Note Text: INITIAL OB ASSESSMENT HPI: Chyna is a 33 year old White here to establish Obstetrical Care. Patient's last menstrual period was 07/30/2024. from OB Dating Form. was planned Complaints: No OB History Gravida2 Para1 Term0 Preterm0 AB0 Living1 SAB0 IAB0 Ectopic0 Multiple0 Live Births1 Previous history: Prior : Yes History of 4th degree laceration: No History of shoulder dystocia: No History of Hypertensive disorders including pre-eclampsia or gestational hypertension: No History of gestational diabetes: No Patient's Risk Screening for delivery: Have you had a prior valenzuela between 20w and 36w6d? No How many pregnancies have you had before? 1 Did you have a previous baby with a GBS Infection? No Please select all that apply for any prior : N/A MEDICAL/PSYCHOSOCIAL HISTORY: History of hemorrhage or bleeding concerns: No Thyroid Disease: No History of chronic hypertension: No History of pre-existing diabetes: No No results found for: ABORHD BMI 18.37 kg/(m2) Last Pap: History of abnormal pap: No Prior treatment for cervical dysplasia: none. Last HPV: History of STDs: N/A Partner History of STDs: None Did you have a partner with Herpes? No Tobacco use: No E-Cigarette/Vaping Use: No Caffeine use: Yes- 1 cup of coffee a day Drug use: No Alcohol use: No Multivitamin with Folic acid: Yes Would refuse blood transfusion if medically necessary: No Social Needs: How often does this describe you? I don't have enough money to pay my bills: Never Within the past 12 months, have you worried that your food would run out before you had money to buy more? Never In the past 12 months, has lack of reliable transportation kept you from going to medical appointments or work, or from getting things needed for daily living? Never In the past 12 months, have you had any concerns about having a place to live, or about the condition or quality of your housing? Never Would you like more information on any of the following (please check all that apply)? Not interested Social History: Do you have any history of depression, anxiety, PTSD, or other mood problems? No Do you have a history of abuse or trauma that may impact your experience? No Are you currently employed? No Depression/Anxiety Screening: denies symptoms of depression. OB Depression and Anxiety Screening- This Encounter Over the past 2 weeks have you felt down, depressed, or hopeless? Negative Over the past two weeks, have you felt little interest or pleasure in doing things?? Negative Feeling nervous, anxious or on edge 0-Not at all Not being able to stop or control worrying 0-Not al all Anxiety Pre-Screening Total (If >/= 3 additional questions will be reviewed) 0 Genetic Screening: Partner present: Yes Patient verbalized knowledge of partner family health history: Yes Do you or your partner have any personal or family history of defects not previously discussed: No Do you have history of a complicated by anomaly, genetic condition, or demise: No Preeclampsia Risk Screening: Screening for prevention of preeclampsia: High risk factors: None Moderate risk ractors: None OB Risk Screening: Completed, no positive findings documented. Marital Status: Partner: Name: Belkys Age: 35 Occupation: [employer] Gender: Male History reviewed. No pertinent past medical history. PAST SURGICAL HISTORY Procedure Laterality Date SECTION HX 03/12/2022 Dr. Galloway Current Outpatient Medications Medication Sig Dispense Refill aspirin, enteric coated (ECOTRIN LOW STRENGTH) 81 mg EC tablet Take 1 tablet by mouth once daily. 90 tablet 3 vit no.387-ynwc-ercta ( VITAMIN) 27 mg iron- 800 mcg tab Take 1 tablet by mouth once daily. No current facility-administered medications for this visit. Allergies As of Date: 09/25/2024 (No Known Allergies) Fully Assessed 09/25/2024 Does patient have penicillin allergy: No REVIEW OF SYSTEMS: GENERAL: Negative for: Fever or Chills HEENT: Negative for: Headache, Impaired Vision, Ringing in Ears, Nosebleeds NECK: Negative for: Swelling, Pain, Stiffness RESPIRATORY: Negative for: Cough, Shortness of breath, Wheezing GASTROINTESTINAL: Negative for: Heartburn, Constipation, Diarrhea, Blood in stool, Vomiting MUSCULOSKELETAL: Negative for: Muscle or joint pain, stiffness, Joint swelling NEUROLOGIC/PSYCHIATRIC: Negative for: Weakness, Paralysis, Numbness, Tingling, Tremor, Anxiety, Depression, Memory loss SKIN: Negative for: Rash, Itching GENITOURINARY: Negative for: vaginal itching, vaginal discharge, hematuria or dysuria (more content not included)... [facility] Evaluation note No assessment inform ation available [facility] Work Phone: Evaluation note Diagnosis Encounter for supervision of high risk in first trimester, antepartum (HCC) [facility] Encounter for supervision of high risk in first trimester, antepartum (HCC)- Primary 12 weeks gestation of (HCC) state, incidental History of section Other postprocedural status [facility] Diagnosis Encounter for supervision of high risk in first trimester, antepartum (HCC)- Primary 16 weeks gestation of (HCC) state, incidental History of section Other postprocedural status [facility] Diagnosis Supervision of high risk in second trimester (HCC)- Primary Unspecified high-risk 20 weeks gestation of (HCC) state, incidental History of section Other postprocedural status [facility] Diagnosis Encounter for supervision of high risk in first trimester, antepartum (HCC)- Primary 20 weeks gestation of (HCC) state, incidental [facility] Screening for diabetes mellitus- Primary Supervision of high risk in second trimester (HCC) Unspecified high-risk 24 weeks gestation of (HCC) state, incidental documented in this encounter [facility] Summary Purpose Family History No Family History Records FoundNo Family History Records Found Advance Directives No Advanced Directives Records FoundNo Advanced Directives Records Found Additional Source Comments Goals (unrecognized section and content) Goals may be documented in a n alternate section Source Comments (unrecognize d section and content) In the event this informatio n is protected by the Federal Confidentiality of Alcohol and Drug Abuse Patient Records regulations: The Federal rules restrict any use of the information to criminally investigate or prosecute any alcohol or drug abuse patient.[facility] the event this information is protected by the Federal Confidentiality of Alcohol and Drug Abuse Patient Records regulations: The Federal rules restrict any use of the information to criminally investigate or prosecute any alcohol or drug abuse patient.[facility] the event this information is protected by the Federal Confidentiality of Alcohol and Drug Abuse Patient Records regulations: The Federal rules restrict any use of the information to criminally investigate or prosecute any alcohol or drug abuse patient.[facility] the event this information is protected by the Federal Confidentiality of Alcohol and Drug Abuse Patient Records regulations: The Federal rules restrict any use of the information to criminally investigate or prosecute any alcohol or drug abuse patient.[facility] the event this information is protected by the Federal Confidentiality of Alcohol and Drug Abuse Patient Records regulations: The Federal rules restrict any use of the information to criminally investigate or prosecute any alcohol or drug abuse patient.[facility] the event this information is protected by the Federal Confidentiality of Alcohol and Drug Abuse Patient Records regulations: The Federal rules restrict any use of the information to criminally investigate or prosecute any alcohol or drug abuse patient.[facility] the event this information is protected by the Federal Confidentiality of Alcohol and Drug Abuse Patient Records regulations: The Federal rules restrict any use of the information to criminally investigate or prosecute any alcohol or drug abuse patient.[facility] the event this information is protected by the Federal Confidentiality of Alcohol and Drug Abuse Patient Records regulations: The Federal rules restrict any use of the information to criminally investigate or prosecute any alcohol or drug abuse patient.[facility] Reason for Visit (unrecogniz ed section and content) Reason Comments [place] Specialty Diagnoses / Procedures Referred By [place] t Referred To Contact [facility] Diagnoses Encounter for supervision of high risk in first trimester, antepartum (HCC) Procedures OBSTETRIC ULTRASOUND WHI US PREG UTERUS AFTER 1ST TRIMEST GESTATION Cleopatra Powell APRN.GAME [employer]IST [address] [place] [address] Phone: tel: fax: [facility] [address] [place] [address] Referral ID Status Reason Start Date Expiration Date V isits Requested Visits Authorized [id number] Closed Auto-Generate d Referral 09/25/2024 09/25/2025 1 1 Reason Onset Date Comments Care 10/22/2024 Reason Onset Date Comments Care 11/20/2024 Reason Onset Date Comments Care 12/18/2024 Referral ID Status Reason Start Date Expiration Date V isits Requested Visits Authorized [id number] Closed Auto-Generate d Referral 09/25/2024 09/25/2025 1 1 Reason Comments C/S Reason Onset Date Comments Care 01/15/2025 INFORMATION SOURCE (unrecogn ized section and content) DATE CREATED AUTHOR 01/02/2025 [facility] DATE CREATED AUTHOR AUTHOR'S ORGANIZ ATION 01/17/2025 [facility] FOR RECORDS PERTAINING TO PATIENTS WHO ARE OR HAVE BEEN ENROLLED IN A CHEMICAL DEPENDENCY/SUBSTANCEABUSE PROGRAM, SOME INFORMATION MAY BE OMITTED. This clinical summary was aggregated from multiple sources. Caution should be exercised in using it in the provision of clinical care. This summary normalizes information from multiple sources, and as a consequence, information in this document may materially change the coding, format and clinical context of patient data. In addition, data may be omitted in some cases. CLINICAL DECISIONS SHOULD BE BASED ON THE PRIMARY CLINICAL RECORDS. [facility]. provides no warranty or guarantee of the accuracy or completeness of information in this document.
== END | disposition home or self-care (01) ==
LOC: LAB 06:59
PROVIDERS: PCP Family Medicine; Referring Provider Obstetrics & Gynecology; Visit Provider Obstetrics & Gynecology
DX: O09.92 Supervision of high risk pregnancy, unspecified, second trimester (principal); Z3A.00 Weeks of gestation of pregnancy not specified; Z13.1 Encounter for screening for diabetes mellitus
CPT/HCPCS: 36415; 82728; 82950; 83540; 83550; 85027; 86780

== ENCOUNTER 2025-05-01 09:30 | Inpatient (IN) | payer OTHER, SELFPAY ==
[2025-05-01] VITALS (15 sets, daily range): BP systolic 97–144; BP diastolic 55–100; PULSE 69–100; RESP 16–17; TEMP 36.2–36.7; O2SAT 98–100; BMI 21.4
--- OUTSIDE RECORDS SUMMARY | 2025-05-01 09:40 | XMS RPT_ITS | CCD ---
Author Organization [facility] Care Team Providers Care Route Cdl Driver Name Role Phone Unavailable Primary Care Provider Unavailabl e Dr. Gary Guzman DO Attending Physician Dr. Gary Guzman DO Referring Provider Dr. Fawad Mathias DO Primary Care Physician Eliazar Rutledge Attending Unavailable Eliazar Rutledge Admitting Unavailable Gary Guzman Referring Unavailable Gary Guzman Attending Unavailable Fawad Mathias Primary Care Unavailable GARY GUZMAN Attending Unavailable CLEOPATRA POWELL Attending Unavailable HAURY, CLEOPATRA Referring Unavailable HAURY, CLEOPATRA Referring Unavailable HAURY, CLEOPATRA Attending Unavailable HAURY, CLEOPATRA Referring Unavailable HAURY, CLEOPATRA Referring Unavailable EMY EDGE Attending Unavailable HAURY, CLEOPATRA Referring Unavailable HAURY, CLEOPATRA Attending Unavailable SELF Referring Unavailable YOON WEST Attending Unavailable ELIAZAR RUTLEDGE Attending Unavailable ELIAZAR RUTLEDGE Attending Unavailable Medications Current Medications Medication Drug Class(es) [...] Start: 09-05-2017 Norgestimate-Ethiny l Estradiol Active PO 28 September 05, 2017 12:00am nitrofurantoin, macrocrystals 25 mg / nitrofurantoin, monohydrate 75 mg oral capsule (1 source) Nitrofuran Antibacterial Start: 09-21-2018 take 1 capsule by mouth twice daily at mealtime Nitrofurantoin Monohyd/M-Cryst (Macrobid) 100 mg capsule Active 100 MG PO TWICE A DAY September 21, 2018 12:00am must administer with a meal/food oxyCODONE hydrochloride 5 mg oral tablet (1 source) Opioid Agonist Start: 03-12-2022 take 1 tablet by mouth every six hours as needed for pain (1 source) Start: 03-11-2022 vit no.177-ubpt-ofhip ( VITAMIN) 27 mg iron- 800 mcg tab (8 sources) take 1 tablet by mouth once daily vit no.545-fnzu-jqsnx ( VITAMIN) 27 mg iron- 800 mcg tab Take 1 tablet by mouth once daily. Active Problems Active Problems Problem Classification Problem Date Documented Date Episodic/Chronic Acute bronchitis (2 sources) Acute bronchitis; Translations: [Acute bronchitis, unspecified] 05-10-2021 Episodic Anxiety disorders (2 sources) Anxiety; Translations: [Anxiety disorder, unspecified] 04-07-2017 Chronic Chronic obstructive pulmonary disease and bronchiectasis (4 sources) Acute exacerbation of chronic obstructive airways disease; Translations: [Chronic obstructive pulmonary disease with (acute) exacerbation] 04-07-2017 Chronic Esophageal disorders (2 sources) Gastroesophageal reflux disease; Translations: [Gastro-esophageal reflux disease without esophagitis] 04-07-2017 Chronic Mycoses (2 sources) Candidiasis of mouth; Translations: [Candidal stomatitis] 04-07-2017 Episodic Other complications of (14 sources) High risk ; Translations: [Supervision of high risk , unspecified, first trimester] Onset: 09-25-2024 10-22-2024 Episodic Other complications of (2 sources) Supervision of high risk , unspecified, second trimester; Translations: [Supervision of high risk , unspecified, second trimester] Onset: 02-10-2025 Episodic Other complications of (1 source) Supervision of high risk , unspecified, first trimester; Translations: [Encounter for supervision of high risk in first trimester, antepartum (HCC)] Onset: 12-18-2024 Episodic Other connective tissue disease (1 source) Bursitis of shoulder; Translations: [Bursitis of left shoulder] Episodic Other connective tissue disease (1 source) Bursitis of left shoulder; Translations: [Bursitis of left shoulder] 04-07-2017 Episodic Other lower respiratory disease (2 sources) Nodule of lung; Translations: [Solitary pulmonary nodule] 04-07-2017 Episodic Other lower respiratory disease (2 sources) Hypoxia; Translations: [Hypoxemia] 04-07-2017 Episodic Other lower respiratory disease (2 sources) Paroxysmal nocturnal dyspnea; Translations: [Dyspnea, unspecified] 04-07-2017 Episodic Other nervous system disorders (1 source) Acute postoperative pain; Translations: [Other acute postprocedural pain] 03-12-2022 Episodic Other and delivery including normal (5 sources) Normal ; Translations: [Encounter for supervision of other normal , first trimester] Onset: 09-25-2024 10-22-2024 Episodic Other screening for suspected conditions (not mental disorders or infectious disease) (3 sources) Patient encounter status; Translations: [Encounter for screening for diabetes mellitus] Onset: 09-25-2024 01-15-2025 Episodic Other skin disorders (2 sources) Mass of skin; Translations: [Localized swelling, mass and lump, unspecified] 04-07-2017 Episodic Other upper respiratory disease (2 sources) Seasonal allergic rhinitis; Translations: [Other seasonal allergic rhinitis] 04-07-2017 Chronic Other upper respiratory infections (2 sources) Sinusitis; Translations: [Chronic sinusitis, unspecified] 09-05-2017 Chronic Other upper respiratory infections (2 sources) Upper respiratory infection; Translations: [Acute upper respiratory infection, unspecified] 09-05-2017 Episodic Polyhydramnios and other problems of amniotic cavity (1 source) Chorioamnionitis; Translations: [Chorioamnionitis, unspecified trimester, not applicable or unspecified] 03-22-2022 Episodic Previous (1 source) Maternal care for low transverse scar from previous delivery; Translations: [Maternal care due to low transverse uterine scar from previous delivery (HCC)] Onset: 02-12-2025 Episodic Residual codes; unclassified (1 source) Gestation [...] 01-15-2025 Episodic Residual codes; unclassified (1 source) 32 weeks gestation of ; Translations: [32 weeks gestation of (HCC)] Onset: 03-12-2025 Episodic Residual codes; unclassified (1 source) 30 weeks gestation of ; Translations: [30 weeks gestation of (HCC)] Onset: 02-26-2025 Episodic Residual codes; unclassified (1 source) 28 weeks gestation of ; Translations: [28 weeks gestation of (HCC)] Onset: 02-12-2025 Episodic Residual codes; unclassified (1 source) 24 weeks gestation of ; Translations: [24 weeks gestation of (HCC)] Onset: 01-15-2025 Episodic Residual codes; unclassified (1 source) 20 weeks gestation of ; Translations: [20 weeks gestation of (HCC)] Onset: 12-18-2024 Episodic Respiratory failure; insufficiency; arrest (adult) (2 sources) Chronic hypoxemic respiratory failure; Translations: [Chronic respiratory failure with hypoxia] 04-07-2017 Chronic Spondylosis; intervertebral disc disorders; other back problems (2 sources) Neck pain; Translations: [Cervicalgia] 04-07-2017 Episodic Unclassified (8 sources) [facility] Education - COMMON Onset: 09-25-2024 09-25-2024 Unclassified (8 sources) Education - [place] Onset: 09-25-2024 09-25-2024 Past or Other Problems Problem Classification Problem Date Documented Date Episodic/Chronic Immunizations and screening for infectious disease (3 sources) Exposure to Mycobacterium tuberculosis; Translations: [Contact with and (suspected) exposure to tuberculosis] Onset: 09-25-2024 04-07-2017 Episodic Residual codes; unclassified (1 source) History of uterine scar from previous surgery; Translations: [History of section] Onset: 10-22-2024 Episodic Residual codes; unclassified (1 source) 16 weeks gestation of ; Translations: [16 weeks gestation of ([facility])] Onset: 11-20-2024 Episodic Residual codes; unclassified (1 source) 12 weeks gestation of ; Translations: [12 weeks gestation of ([facility])] Onset: 10-22-2024 Episodic Residual codes; unclassified (1 source) 8 weeks gestation of ; Translations: [8 weeks gestation of ([facility])] Onset: 09-25-2024 Episodic Results Test Name Value Interpretation Reference Range Facility CBC-Complete Blood Cnt No Di ffon 02-04-2025 Erythrocyte distribution width (RBC) [Ratio] 13.6 % Normal 11.6-14.6 [facility] Comment on above: Performed By: #### L 503.6030, L503.6550, L501.0250, L509.8002, L100.0500 #### [facility] [address], [address] Hematocrit (Bld) [Volume fraction] 35.0 % Low 37-47 [facility] Comment on above: Performed By: #### L 503.6030, L503.6550, L501.0250, L509.8002, L100.0500 #### [facility] [address] [facility] [place], [address] Hemoglobin (Bld) [Mass/Vol] 11.7 g/dL Low 12.0-15.0 [facility] Comment on above: Performed By: #### L 503.6030, L503.6550, L501.0250, L509.8002, L100.0500 #### [facility] [address] [facility] [place], [address] MCH (RBC) [Entitic mass] 31.9 pg Normal 27.0-32.0 [facility] Comment on above: Performed By: #### L 503.6030, L503.6550, L501.0250, L509.8002, L100.0500 #### [facility] [address] [place], [address] MCHC (RBC) [Mass/Vol] 33.4 g/dL Normal 32-36 [facility] Comment on above: Performed By: #### L 503.6030, L503.6550, L501.0250, L509.8002, L100.0500 #### [facility] [address] [place], [address] MCV (RBC) [Entitic vol] 95.4 fL Normal 81-99 [facility] Comment on above: Performed By: #### L 503.6030, L503.6550, L501.0250, L509.8002, L100.0500 #### [facility] [address] [place], [address] Platelet mean volume (Bld) [Entitic vol] 10.0 fL Normal 6.2-12.0 [facility] Comment on above: Performed By: #### L 503.6030, L503.6550, L501.0250, L509.8002, L100.0500 #### [facility] [address] [place], [address] Platelets (Bld) [#/Vol] 218 10*3/uL Normal 150-450 [facility] Comment on above: Performed By: #### L 503.6030, L503.6550, L501.0250, L509.8002, L100.0500 #### [facility] [address] [place], [address] RBC (Bld) [#/Vol] 3.67 10*6/uL Low 4.2-5.4 [facility] Comment on above: Performed By: #### L 503.6030, L503.6550, L501.0250, L509.8002, L100.0500 #### [facility] [address] [place], [address] RDW SD 47.3 fl High 35.1-43.9 [facility] Comment on above: Performed By: #### L 503.6030, L503.6550, L501.0250, L509.8002, L100.0500 #### [facility] [address] [place], [address] WBC (Bld) [#/Vol] 10.1 10*3/uL Normal 4.4-11.0 [facility] Comment on above: Performed By: #### L 503.6030, L503.6550, L501.0250, L509.8002, L100.0500 #### [facility] [address] [place], [address] Erythrocyte distribution wid th ratioOrdered By: Gary Guzman on 02-04-2025 Erythrocyte distribution width (RBC) [Ratio] 13.6 % 11.6-14.6 [facility] Erythrocyte distribution wid th standard deviationOrdered By: Gary Guzman on 02-04-2025 Erythrocyte distribution width (RBC) [Ratio] 47.3 fl High 35.1-43.9 [facility] Ferritinon 02-04-2025 Ferritin [Mass/Vol] 40 ng/mL Normal 22-378 [facility] Comment on above: Performed By: #### L 503.6030, L503.6550, L501.0250, L509.8002, L100.0500 #### [facility] [address] [place], [address] Glucose Challenge Gest 1H 50 manjit 02-04-2025 GLU GEST 50g 1H 127 mg/dL Normal 70-140 [facility] Comment on above: Performed By: #### L 503.6030, L503.6550, L501.0250, L509.8002, L100.0500 #### [facility] [address] [place], [address] Glucose measurement at 2 doreen rs post-dose gestational glucose tolerance testOrdered By: Gary Guzman on 02-04-2025 Glucose [Mass/Vol] 127 mg/dL 70-140 [facility] Hematocrit Auto (Bld) [Volum e fraction]Ordered By: Gary Guzman on 02-04-2025 Hematocrit (Bld) [Volume fraction] 35.0 % Low 37-47 [facility] Hemoglobin measurementOrdere d By: Gary Guzman on 02-04-2025 Hemoglobin (Bld) [Mass/Vol] 11.7 g/dL Low 12.0-15.0 [facility] Iron measurement (mass/mass) Ordered By: Gary Guzman on 02-04-2025 Iron (Unsp spec) [Mass/Mass] 92 ug/dL 50-170 [facility] Iron+Iron Binding Capacityon 02-04-2025 Iron [Mass/Vol] 92 ug/dL Normal 50-170 [facility] Comment on above: Performed By: #### L 503.6030, L503.6550, L501.0250, L509.8002, L100.0500 #### [facility] [address] [place], [address] IRON SATURATION 23.1 Normal 13-59 [facility] Comment on above: Performed By: #### L 503.6030, L503.6550, L501.0250, L509.8002, L100.0500 #### [facility] [address] [place], [address] TIBC 398 ug/dL Normal 250-450 [facility] Comment on above: Performed By: #### L 503.6030, L503.6550, L501.0250, L509.8002, L100.0500 #### [facility] [address] [place], [address] UIBC 306 ug/dL Normal 228-428 [facility] Comment on above: Performed By: #### L 503.6030, L503.6550, L501.0250, L509.8002, L100.0500 #### [facility] [address] [place], [address] MCV (mean corpuscular volume ) determinationOrdered By: Gary Guzman on 02-04-2025 MCV (RBC) [Entitic vol] 95.4 fL 81-99 [facility] Mean corpuscular hemoglobin (MCH) determinationOrdered By: Gary Guzman on 02-04-2025 MCH (RBC) [Entitic mass] 31.9 pg 27.0-32.0 [facility] Mean corpuscular hemoglobin concentration (MCHC) determinationOrdered By: Gary Guzman on 02-04-2025 MCHC (RBC) [Mass/Vol] 33.4 g/dL 32-36 [facility] Mean platelet volume determi nationOrdered By: Gary Guzman on 02-04-2025 Platelet mean volume (Bld) [Entitic vol] 10.0 fL 6.2-12.0 [facility] No Panel InformationOrdered By: Gary Guzman on 02-04-2025 Unsaturated Iron Binding Capacity 306 ug/dL 228-428 [facility] Platelet countOrdered By: Sa ra Guzman on 02-04-2025 Platelets (Bld) [#/Vol] 218 10*3/uL 150-450 [facility] RBC Auto (Bld) [#/Vol]Ordere d By: Gary Guzman on 02-04-2025 RBC (Bld) [#/Vol] 3.67 10*6/uL Low 4.2-5.4 [facility] Serum or plasma ferritin selam surement (mass/volume)Ordered By: Gary Guzman on 02-04-2025 Ferritin [Mass/Vol] 40 ng/mL 22-378 [facility] Serum or plasma iron saturat ion measurement (mass fraction)Ordered By: Gary Guzman on 02-04-2025 Iron saturation [Mass fraction] 23.1 % 13-59 [facility] Syphilis Antibodieson 2024 Syphilis Abs Non-Reactive Normal Nonreactive [facility] Comment on above: Performed By: #### L 503.6030, L503.6550, L501.0250, L509.8002, L100.0500 #### [facility] [place], [address] White blood cell (WBC) count Ordered By: Gary Guzman on 02-04-2025 WBC (Bld) [#/Vol] 10.1 10*3/uL 4.4-11.0 [facility] 12-18-2024 CNPN Telephone (OBGYWM) CHYNA DUBON ([id number]) 1990 F Date Time Provider Department 12/18/24 CLEOPATRA POWELL OBGYWDebi During your visit today, we recorded the following information about you: Cleopatra Powell APRN.[employer] 12/18/2024 9:19 AM Signed VICKY 05/06. Planning for repeat c/s. Would like Dr. Luong. 39 weeks makes her 04/29. Would prefer to avoid [place]. Wondering when she could have her repeat c/s with Dr. Luong. Cleopatra Powell APRN.Yoon Robertson RN 12/18/2024 10:44 AM Signed RR is in surgery on 05/01. C/S schedule is open. VIKA Crowe Rebecca L, MD 12/19/2024 2:00 PM Signed I am planning on being out -07 of May. So I can't promise I will do it. I might not be out. MD Trina Paredes Jennifer, VIKA 12/19/2024 4:55 PM Signed KJ is back up call on 05/01. Surgery sheet to ANJELICA. VIKA Crowe Trisha, RN 12/23/2024 4:44 PM Signed ANJELICA planning to talk to DM to see if can add on c/s to her surgery day 05/01. VIKA Santiago Karmon, MD 12/30/2024 4:27 PM Signed I need to discuss with . Eliazar Rutledge MD Allergies As of Date: 12/18/2024 (No Known Allergies) Date Reviewed: 12/18/2024 Reviewed by: Cleopatra Powell APRN.BAND [employer]KER - Fully Assessed Reason for Visit: C/S [Other] Prescriptions as of 01/02/2025 - vit no.657-uyit-rqwhw ( VITAMIN) 27 mg iron- 800 mcg tab Take 1 tablet by mouth once daily. Problem List As Of Date 12/18/2024 Noted Resolved Supervision of high risk in second tr*09/25/2024 History of section [Z98.891] 09/25/2024 Encounter Status:Closed by CLEOPATRA POWELL on 12/22/24 Normal [facility] Examination level ultrasound on 12-18-2024 Indication [...] 12 oz EFW by: Hadlock (HC-AC-FL) [employer] 5.3 mm CM 3.9 mm 15% Nicolaides [...] normal LVOT view: normal 3-vessel view: normal 7-pkkkqt-dzxzhos view: normal Heart / Thorax Situs: situs [...] Read By: Prasad Herring M.D. MATERNAL MEDICINE [facility] Radiology Study observation (narrative) [facility] CBC W Auto Differential pane l (Bld)on 10-22-2024 Basophils (Bld) [#/Vol] 0.04 10*3/uL Normal <0.11 [facility] Comment on above: Order Comment: Speci men Type: BLOOD SPECIMEN Ordering Facility: [facility] Address: [address] [place] [address] Performed By: #### 5 7021-8 #### [facility] CLIA [id number] [address] [place] [address] [place] Basophils/100 WBC (Bld) 0.5 % Normal C [facility] Comment on above: Order Comment: Speci men Type: BLOOD SPECIMEN Ordering Facility: [facility] Address: [address] [place] [address] Performed By: #### 5 7021-8 #### [facility] CLIA [id number] [address] [place] [address] [place] Differential cell count method Nom (Bld) Auto Normal [facility] Comment on above: Order Comment: Speci men Type: BLOOD SPECIMEN Ordering Facility: [facility] Address: [address] [place] [address] Performed By: #### 5 7021-8 #### [facility] CLIA [id number] [address] [place] [address] [place] Eosinophils (Bld) [#/Vol] 0.21 10*3/uL Normal <0.46 [facility] Comment on above: Order Comment: Speci men Type: BLOOD SPECIMEN Ordering Facility: [facility] Address: [address] [place] [address] Performed By: #### 5 7021-8 #### [facility] CLIA [id number] [address] [place] [address] [place] Eosinophils/100 WBC (Bld) 2.8 % Normal [facility] Comment on above: Order Comment: Speci men Type: BLOOD SPECIMEN Ordering Facility: [facility] Address: [address] [place] [address] Performed By: #### 5 7021-8 #### [facility] CLIA [id number] [address] [place] [address] [place] Erythrocyte distribution width (RBC) [Ratio] 12.8 % Normal 11.5-15.0 [facility] Comment on above: Order Comment: Speci men Type: BLOOD SPECIMEN Ordering Facility: [facility] Address: [address] [place] [address] Performed By: #### 5 7021-8 #### [facility] CLIA [id number] [address] [place] [address] [place] Hematocrit (Bld) [Volume fraction] 37.2 % Normal 36.0-46.0 [facility] Comment on above: Order Comment: Speci men Type: BLOOD SPECIMEN Ordering Facility: [facility] Address: [address] [place] [id number] Performed By: #### 5 7021-8 #### [facility] CLIA [id number] [address] [place] [address] [place] Hemoglobin (Bld) [Mass/Vol] 12.8 g/dL Normal 11.5-15.5 [facility] Comment on above: Order Comment: Speci men Type: BLOOD SPECIMEN Ordering Facility: [facility] Address: [address] [place], [place] [id number] Performed By: #### 5 7021-8 #### [facility] CLIA [id number] [address] [place] [address] [place] Immature granulocytes (Bld) [#/Vol] 10*3/uL Normal <0.10 [facility] Comment on above: Order Comment: Speci men Type: BLOOD SPECIMEN Ordering Facility: [facility] Address: [address] [place], [place] [id number] Performed By: #### 5 7021-8 #### [facility] CLIA [id number] [address] [place] [address] [place] Immature granulocytes/100 WBC (Bld) 0.3 % Normal [facility] Comment on above: Order Comment: Speci men Type: BLOOD SPECIMEN Ordering Facility: [facility] Address: [address] [place] [address] Performed By: #### 5 7021-8 #### [facility] CLIA [id number] [address] [place] [address] [place] Lymphocytes (Bld) [#/Vol] 1.42 10*3/uL Normal 1.00-4.00 [facility] Comment on above: Order Comment: Speci men Type: BLOOD SPECIMEN Ordering Facility: [facility] Address: [address] [place] [address] Performed By: #### 5 7021-8 #### [facility] CLIA [id number] [address] [place] [address] [place] Lymphocytes/100 WBC (Bld) 19.1 % Normal [facility] Comment on above: Order Comment: Speci men Type: BLOOD SPECIMEN Ordering Facility: [facility] Address: [address] [place] [address] Performed By: #### 5 7021-8 #### [facility] CLIA [id number] [address] [place] [address] [place] MCH (RBC) [Entitic mass] 30.5 pg Normal 26.0-34.0 [facility] Comment on above: Order Comment: Speci men Type: BLOOD SPECIMEN Ordering Facility: [facility] Address: [address] [place] [address] Performed By: #### 5 7021-8 #### [facility] CLIA [id number] [address] [place] [address] [place] MCHC (RBC) [Mass/Vol] 34.4 g/dL Normal 30.5-36.0 [facility] Comment on above: Order Comment: Speci men Type: BLOOD SPECIMEN Ordering Facility: [facility] Address: [address] [place] [address] Performed By: #### 5 7021-8 #### [id number] [address] [place] [address] [place] MCV (RBC) [Entitic vol] 88.6 fL Normal 80.0-100.[address] [facility] Comment on above: Order Comment: Speci men Type: BLOOD SPECIMEN Ordering Facility: [facility] Address: [address] [place] [address] Performed By: #### 5 7021-8 #### [facility] CLIA [id number] [address] [place] [address] [place] Monocytes (Bld) [#/Vol] 0.37 10*3/uL Normal <0.87 [facility] Comment on above: Order Comment: Speci men Type: BLOOD SPECIMEN Ordering Facility: [facility] Address: [address] [place] [address] Performed By: #### 5 7021-8 #### [facility] CLIA [id number] [address] [place] [address] [place] Monocytes/100 WBC (Bld) 5.0 % Normal [facility] Comment on above: Order Comment: Speci men Type: BLOOD SPECIMEN Ordering Facility: [facility] Address: [address] [place] [address] Performed By: #### 5 7021-8 #### [facility] CLIA [id number] [address] [place] [address] [place] Neutrophils (Bld) [#/Vol] 5.38 10*3/uL Normal 1.45-7.50 [facility] Comment on above: Order Comment: Speci men Type: BLOOD SPECIMEN Ordering Facility: [facility] Address: [address] [place] [address] Performed By: #### 5 7021-8 #### [facility] CLIA [id number] [address] [place] [address] [place] FABRIZIO Neutrophils/100 WBC (Bld) 72.3 % Normal [facility] Comment on above: Order Comment: Speci men Type: BLOOD SPECIMEN Ordering Facility: [facility] Address: [address] [place] [address] Performed By: #### 5 7021-8 #### [facility] CLIA [id number] [address] [place] [address] [place] Nucleated RBC (Bld) [#/Vol] 10*3/uL Normal <0.01 [facility] Comment on above: Order Comment: Speci men Type: BLOOD SPECIMEN Ordering Facility: [facility] Address: [address] [place] [address] Performed By: #### 5 7021-8 #### [facility] CLIA [id number] [address] [place] [address] [place] Nucleated RBC/100 WBC (Bld) [Ratio] 0.0 /100 WBC Normal [facility] Comment on above: Order Comment: Speci men Type: BLOOD SPECIMEN Ordering Facility: [facility] Address: [address] [place], [place] [address] Performed By: #### 5 7021-8 #### [facility] CLIA [id number] [address] [place] [address] [place] Platelet mean volume (Bld) [Entitic vol] 9.9 fL Normal 9.0-12.7 [facility] Comment on above: Order Comment: Speci men Type: BLOOD SPECIMEN Ordering Facility: [facility] Address: [address] [place], [place] [address] Performed By: #### 5 7021-8 #### [facility] CLIA [id number] [address] [place] [address] [place] Platelets (Bld) [#/Vol] 211 10*3/uL Normal 150-400 [facility] Comment on above: Order Comment: Speci men Type: BLOOD SPECIMEN Ordering Facility: [facility] Address: [address] [place] [address] Performed By: #### 5 7021-8 #### [facility] CLIA [id number] [address] [place] [address] [place] RBC (Bld) [#/Vol] 4.20 10*6/uL Normal 3.90-5.20 [facility] Comment on above: Order Comment: Speci men Type: BLOOD SPECIMEN Ordering Facility: [facility] Address: [address] [place] [address] Performed By: #### 5 7021-8 #### [facility] CLIA [id number] [address] [place] [address] [place] WBC (Bld) [#/Vol] 7.44 10*3/uL Normal 3.70-11.00 [facility] Comment on above: Order Comment: Speci men Type: BLOOD SPECIMEN Ordering Facility: [facility] Address: [address] [place] [address] Performed By: #### 5 7021-8 #### [facility] CLIA [id number] [address] [place] [address] [place] Examination level ultrasound on 10-22-2024 Indication First trimester anatomic survey Impression remote read The patient is referred for a first trimester anatomy scan including nuchal translucency measurement as clinically indicated. - Single, live, intrauterine . - Misenheimer rump length measurement is consistent with the [...] view: normal 4-chamber view with color: normal 6-hwvngw-qhjkuxm view: normal Abdominal cord insertion: normal Stomach: [...] Read By: Cherelle Reilly M.D. MATERNAL MEDICINE [facility] Radiology Study observation (narrative) [facility] HBV surface Ag Ser Qlon 10-05 HBV surface Ag Ql (S) Negative Normal Negative [facility] Comment on above: Order Comment: Speci men Type: BLOOD SPECIMEN Ordering Facility: [facility] Address: [address] [place] [address] Performed By: #### 5 5454-3 #### [facility] CLIA [id number] [address] [place] [address] [facility] HCV Ab Ser Qlon 10-22-2024 HCV Ab Ql (S) Negative Normal Negative [facility] Comment on above: Order Comment: Speci men Type: BLOOD SPECIMEN Ordering Facility: [facility] Address: [address] [place] [address] Result Comment: The result suggests no evidence of infection with Hepatitis C virus. Should recent infection be suspected, repeat testing may be considered 4-6 weeks after this draw. Performed By: #### 1 6128-1 #### [facility] CLIA [id number] [address] [place] [address] [place] HIV 1+2 Ab IA Qlon HIV 1 and 2 Ab IA.rapid Nom (S/P/Bld) Normal [facility] Comment on above: Order Comment: Speci men Type: BLOOD SPECIMEN Ordering Facility: [facility] Address: [address] [place] [address] Result Comment: Test not indicated. Performed By: #### 5 5454-3 #### [facility] CLIA [id number] [address] [place] [address] [place] HIV 1+2 Ab+HIV1 p24 Ag IA Ql Non-Reactive Normal Nonreactive [facility] Comment on above: Order Comment: Speci men Type: BLOOD SPECIMEN Ordering Facility: [facility] Address: [address] [place] [address] Performed By: #### 5 5454-3 #### [facility] CLIA [id number] [address] [place] [address] [place] HIV immunoassay testing algorithm interpretation (S/P/Bld) [Interp] Normal [facility] Comment on above: Order Comment: Speci men Type: BLOOD SPECIMEN Ordering Facility: [facility] Address: [address] [place] [address] Result Comment: No e vidence of HIV-1 or HIV-2 infection. Should recent infection be suspected, repeat testing may be considered 2-3 weeks after this draw. [place] Rev. Code 3701.243(E): This information has been [...] test results or diagnoses. Performed By: #### 5 5454-3 #### [facility] CLIA [id number] [address] [place] [address] [place] HbA1c (Bld)on 10-22-2024 Average glucose Estimated from glycated hemoglobin (Bld) [Mass/Vol] 100 mg/dL Normal [facility] Comment on above: Order Comment: Speci men Type: BLOOD SPECIMEN Ordering Facility: [facility] Address: [address] [place] [address] Result Comment: eAG: (Estimated average glucose) is a calculated value from HgbA1c and is claims representative of the average blood glucose level in the last 2-3 month period. Performed By: #### 5 5454-3 #### [facility] CLIA [id number] [address] [place] [address] [place] HbA1c (Bld) [Mass fraction] 5.1 % Normal 4.3-5.6 [facility] Comment on above: Order Comment: Nanda davis Type: BLOOD SPECIMEN Ordering Facility: [facility] Address: [address] [place] [address] Result Comment: Amer [place] Diabetes Association guidelines indicate that patients with HgbA1c in the range 5.7-6.4% are at increased risk for development of diabetes, and intervention by lifestyle modification may be beneficial. HgbA1c greater or equal to 6.5% is considered diagnostic of diabetes. Performed By: #### 5 5454-3 #### [facility] CLIA [id number] [address] [place] [address] [place] RUBELLA IGG ANTIBODYon 10-22 RUBELLA IGG AB, QUAL Positive Normal Positive [facility] Comment on above: Order Comment: Nanda davis Type: BLOOD SPECIMEN Ordering Facility: [facility] Address: [address] [place] [address] Result Comment: The result suggests recent or past exposure to Rubella virus or history of Rubella vaccination. Positive result may also be seen due to presence of passively-transferred antibodies. Please correlate with patient's history. Performed By: #### 5 5454-3 #### [facility] CLIA [id number] [address] [place] [address] [place] Reagin and Treponema pallidu m IgG and IgM [Interp]on 10-22-2024 T. pallidum IgG+IgM IA Ql (S) Non-Reactive Normal Nonreactive [facility] Comment on above: Order Comment: Nanda davis Type: BLOOD SPECIMEN Ordering Facility: [facility] Address: [address] [place] [address] Performed By: #### 5 5454-3 #### [facility] CLIA [id number] [address] [place] [address] [place] Reagin+T pallidum IgG+IgM Se rPl-Impon 10-22-2024 Reagin and Treponema pallidum IgG and IgM [Interp] Cannot exclude recent Treponemal infection if specimen collected within 7-10 days after appearance of suspect lesions or 2-3 weeks after an exposure. Clinical correlation is required. Normal [facility] Comment on above: Order Comment: Speci men Type: BLOOD SPECIMEN Ordering Facility: [facility] Address: [address] [place] [address] Performed By: #### 5 5454-3 #### [facility] CLIA [id number] [address] [place] [address] [place] TYPE + SCREEN PRENATALon ABO O Normal [facility] Comment on above: Order Comment: Speci men Type: BLOOD SPECIMEN Ordering Facility: [facility] Address: [address] [place] [address] Performed By: #### T SPN #### [facility] CLIA [id number] [address] [place] [address] [place] Rh Nom (Bld) Positive Normal [facility] Comment on above: Order Comment: Speci men Type: BLOOD SPECIMEN Ordering Facility: [facility] Address: [address] [place] [address] Result Comment: Mario ected result: Previously reported as Invalid on 10/22/2024 at 6:52 PM EDT. Performed By: #### T SPN #### [facility] CLIA [id number] [address] [place] [address] [place] TYPE AND SCREEN EXPIRATION 10/25/2024 23:59 Normal [facility] Comment on above: Order Comment: Speci men Type: BLOOD SPECIMEN Ordering Facility: [facility] Address: [address] [place] [address] Performed By: #### T SPN #### [facility] CLIA [id number] [address] [place] [address] [place] Bacteria Ur Culton Bacteria identified Cx Nom (U) ORGANISM ID: 1 50,000-<100,000 CFU/ml Lactobacillus jensenii Normal urogenital basim No further workup Normal [facility] Comment on above: Performed By: #### 5 5454-3 #### [facility] CLIA [id number] [address] [place] [address] [place] C. trachomatis+N. gonorrhoea e DNA MARC+probe Ql (Unsp spec)on 09-25-2024 C. trachomatis rRNA MARC+probe Ql (Unsp spec) Not detected Normal Not detected [facility] Comment on above: Order Comment: Speci men Type: SWAB Ordering Facility[facility] Address: [address] [place] [address] Performed By: #### T RVAMP, 74613-7 #### [facility] CLIA [id number] [address] [place] [address] [place] N. gonorrhoeae rRNA MARC+probe Ql (Unsp spec) Not detected Normal Not detected [facility] Comment on above: Order Comment: Speci men Type: SWAB Ordering Facility[facility] Address: [address] [place] [address] Performed By: #### T RVAMP, 55234-1 #### [facility] CLIA [id number] [address] [place] [address] [place] HIGH RISK HUMAN PAPILLOMA ANANYA (HPV), PCR FOR DETECTION AND GENOTYPINGon 09-25-2024 HPV 16 Ag Ql (Unsp spec) Not detected Normal Not detec nickolas [facility] Comment on above: Order Comment: Speci men Type: FLUID SPECIMEN Ordering Facility: [facility] Address: [address] [place] [address] Performed By: #### H PVHRT #### [facility] CLIA [id number] [address] [place] [address] [place] HPV 18 Ag Ql (Unsp spec) Not detected Normal Not detec nickolas [facility] Comment on above: Order Comment: Speci men Type: FLUID SPECIMEN Ordering Facility: [facility] Address: [address] [place] [address] Performed By: #### H PVHRT #### [facility] CLIA [id number] [address] [place] [address] [place] HPV 31+33+35+39+45+51+52+56+ 58+59+66+68 DNA MARC+probe Ql (Cvx) Not detected Normal Not detected [facility] Comment on above: Order Comment: Speci men Type: FLUID SPECIMEN Ordering Facility: [facility] Address: [address] [place] [address] Result Comment: High Risk HPV Other Type includes HPV types 31, 33, 35, 39, 45, 51, 52, 56, 58, 59, 66 and 68. Performed By: #### H PVHRT #### [facility] CLIA [id number] [address] [place] [address] [place] PAP TESTon 09-25-2024 ADEQUACY Normal [facility] Comment on above: Order Comment: Speci men Type: FLUID SPECIMEN Ordering Facility: [facility] Address: [address] [place] [address] Result Comment: Sati sfactory for interpretation. Transformation zone present Performed By: #### L [id number] #### [facility] CLIA [id number] [address] [place] [address] [place] [facility] CLIA [id number] [address] [place] [address] [place] CASE REPORT Normal [facility] Comment on above: Order Comment: Speci men Type: FLUID SPECIMEN Ordering Facility: [facility] Address: [address] [place] [address] Result Comment: Gyne cologic Cytology Report Case: [id number] Authorizing Provider: Cleopatra Powell APRN.B[employer] TOP [employer]KER Collected: 09/25/2024 11:41 AM Ordering Location: OB/Gynecology Received: 09/25/2024 02:49 PM First Screen: Yoon Luong, CT, ASCP Specimen: Pap Test, ThinPrep, Cervix Performed By: #### L [id number] #### [facility] CLIA [id number] [address] [place] [address] [place] [facility] CLIA [id number] [address] [place] [address] [place] CLINICAL HISTORY, CYTOLOGY, PRICING MANAGER Routine Exam Normal [facility] Comment on above: Order Comment: Speci men Type: FLUID SPECIMEN Order[facility] Address: [address] [place] [address] Performed By: #### L [id number] #### [facility] CLIA [id number] [address] [place] [address] [place] [facility] CLIA [id number] [address] [place] [address] [place] FINAL PERFORMING LAB Normal [facility] Comment on above: Order Comment: Speci men Type: FLUID SPECIMEN Ordering Facility[facility] Address: [address] [place] [address] Result Comment: Tech nical component, building surveyor screening performed at: [facility], [address] [place] [address] CLIA: [id number] Diagnostic interpretation performed at: [facility], [address] [place] [address] CLIA# [id number] Operations Director: Fawad Porter MD Performed By: #### L [id number] #### [facility] CLIA [id number] [address] [place] [address] [place] [facility] CLIA [id number] [address] [place] [address] [place] INTERPRETATION, CYTOLOGY, PRICING MANAGER Normal [facility] Comment on above: Order Comment: Speci men Type: FLUID SPECIMEN Ordering Facility[facility] Address: [address] [place] [address] Result Comment: Nega tive for intraepithelial lesion or malignancy. at 1058 EDT Performed By: #### L [id number] #### [facility] CLIA [id number] [address] [place] [address] [place] [facility] CLIA [id number] [address] [place] [address] [place] LMP 07/30/2024 Normal [facility] Comment on above: Order Comment: Speci men Type: FLUID SPECIMEN Ordering Facility[facility] Address: [address] [place] [address] Performed By: #### L [id number] #### [facility] CLIA [id number] [address] [place] [address] [place] [facility] CLIA [id number] [address] [place], [place] [address] [place] PAP DISCLAIMER COMMENT The Pap Smear is a screening test for cervical cancer. False negative results occur with all screening tests, emphasizing the need for rescreening at recommended intervals, and clinical correlation. Normal [facility] Comment on above: Order Comment: Speci men Type: FLUID SPECIMEN Ordering Facility[facility] Address: [address] [place] [address] Performed By: #### L [id number] #### [facility] CLIA [id number] [address] [place] [address] [place] [facility] CLIA [id number] [address] [place], [place] [address] [place] PAP COORDINATE MEASURING MACHINE OPERATOR COMMENT This specimen has been analyzed by the FDA-approved Create System, which uses digital imaging and an enhanced artificial intelligence image analysis algorithm to identify swan of interest on the microscopic slide, to assist the junior network engineer and pathologist in evaluating cells on ThinPrep Pap tests. Following analysis, swan of interest on the microscopic slide selected by the algorithm are reviewed by a junior network engineer. If a sample requires hierarchical review, the pathologist will review the same swan of interest selected by the algorithm prior to final interpretation. Normal [facility] Comment on above: Order Comment: Speci men Type: FLUID SPECIMEN Ordering Facility[facility] Address: [address] [place] [address] Performed By: #### L [id number] #### [facility] CLIA [id number] [address] [place] [address] [place] [facility] CLIA [id number] [address] [place] [address] [place] TRICHOMONAS VAGINALIS NAATon 09-25-2024 T. vaginalis DNA MARC+probe Ql (Unsp spec) Not detected Normal Not detected [facility] Comment on above: Order Comment: Speci men Type: SWAB Ordering Facility[facility] Address: [address] [place] [address] Performed By: #### T RVAMP, 25973-5 #### [facility] CLIA [id number] [address] [place] [address] [place] Absolute lymphocyte counton 12-20-2021 Lymphocytes Auto (Unsp spec) [#/Vol] 1.70 10*3/uL 0.83-4.51 [facility] Work Phone: Basophil percentageon 2021 Basophils/100 WBC (Bld) 0.4 % 0-1 [facility] Work Phone: Eosinophils/100 WBC (Bld) 2.6 % 0-5 [facility] Work Phone: Neutrophils (Bld) [#/Vol] 8.2 10*3/uL 2.0-7.7 [facility] Work Phone: Neutrophils/100 WBC (Bld) 76.7 % 47-70 [facility] Work Phone: WBC (Bld) [#/Vol] 10.7 10*3/uL 4.4-11.0 [facility] Work Phone: Blood erythrocytes count (nu mber/volume)on 12-20-2021 RBC (Bld) [#/Vol] 3.57 10*6/uL 4.2-5.4 [facility] Work Phone: Blood hemoglobin measurement (mass/volume)on 12-20-2021 Hemoglobin (Bld) [Mass/Vol] 11.3 g/dL 12.0-15.0 [facility] Work Phone: Blood lymphocytes/100 leukoc yteson 12-20-2021 Lymphocytes/100 WBC (Bld) 15.8 % 19-41 [facility] Work Phone: Blood monocytes/100 leukocyt eson 12-20-2021 Monocytes/100 WBC (Bld) 4.0 % 0-10 [facility] Work Phone: Blood platelet mean volumeon 12-20-2021 Platelet mean volume (Bld) [Entitic vol] 10.1 fL 6.2-12.0 [facility] Work Phone: Determination of erythrocyte mean corpuscular volume (MCV)on 12-20-2021 MCV (RBC) [Entitic vol] 95.8 fL 81-99 [facility] Work Phone: Gestational diabetes screen 1-hour screen with 50g oral glucose loadon 12-20-2021 Glucose 1 Hr post 50 g glucose PO [Mass/Vol] 140 mg/dL 70-140 [facility] Work Phone: Hematocrit Auto (Bld) [Volum e fraction]on 12-20-2021 Hematocrit (Bld) [Volume fraction] 34.2 % 37-47 [facility] Work Phone: Laboratory - Hematology and Cell countson 12-20-2021 Erythrocyte distribution width (RBC) [Entitic vol] 45.9 fL 35.1-43.9 [facility] Work Phone: [phone] Erythrocyte distribution width (RBC) [Ratio] 13.2 % 11.6-14.6 [facility] Work Phone: Immature granulocytes/100 WBC (Bld) 0.500 % 0.0-0.9 [facility] Work Phone: Comment on above: IG% - Immature Granu locytes (promyelocytes, myelocytes and metamyelocytes) > 1% indicates that a LEFT SHIFT is Present. MCH (RBC) [Entitic mass] 31.7 pg 27.0-32.0 [facility] Work Phone: Nucleated RBC/100 WBC (Bld) [Ratio] 0 % 0-5 [facility] Work Phone: MCHC Auto (RBC) [Mass/Vol]on 12-20-2021 MCHC (RBC) [Mass/Vol] 33.0 g/dL 32-36 [facility] Work Phone: Platelets bldon 12-20-2021 Platelets (Bld) [#/Vol] 193 10*3/uL 150-450 [facility] Work Phone: No Panel Information Group B Streptococcus Culture Group B Beta Streptococcus is not isolated. [facility] Work Phone: Vital Signs Date Time Vital Sign Value Performing Clinician Sahil pace 01-15-2025 10:08-0400 Body mass index (BMI) [Ratio] 19.57 kg/m2 Gary Guzman MD Work Phone: [facility] 01-15-2025 10:08-0400 Body weight 51.71 kg Gary Guzman MD Work Phone: [facility] 01-15-2025 10:08-0400 Diastolic blood pressure 72 mm[Hg] Gary Guzman MD Work Phone: [facility] 01-15-2025 10:08-0400 Systolic blood pressure 110 mm[Hg] Gary Guzman MD Work Phone: [facility] 12-18-2024 09:12-0400 Body mass index (BMI) [Ratio] 18.71 kg/m2 Cleopatra Powell APRN.CNP Work Phone: [facility] 12-18-2024 09:12-0400 Body weight 49.44 kg Cleopatra Haury [employer]ER Work Phone: [facility] 12-18-2024 09:12-0400 Diastolic blood pressure 60 mm[Hg] Cleopatra Haury [employer].BAND TOP MAKER Work Phone: [facility] 12-18-2024 09:12-0400 Systolic blood pressure 108 mm[Hg] Cleopatra Haury [employer].BAND TOP MAKER Work Phone: [facility] 11-20-2024 07:57-0400 Body mass index (BMI) [Ratio] 18.02 kg/m2 Cleopatra Haury [employer].B[employer] TOP MAKER Work Phone: [facility] 11-20-2024 07:57-0400 Body weight 47.63 kg Cleopatra Haury [employer].BAND TOP MAKER Work Phone: [facility] 11-20-2024 07:57-0400 Diastolic blood pressure 60 mm[Hg] Cleopatra Haury [employer]MAID.BAND TOP MAKER Work Phone: [facility] 11-20-2024 07:57-0400 Systolic blood pressure 108 mm[Hg] Cleopatra Haury [employer]MAID.BAND TOP MAKER Work Phone: [facility] 10-22-2024 09:26-0400 Body mass index (BMI) [Ratio] 18.4 kg/m2 Emy Plotts [employer].CNM Work Phone: [facility] 10-22-2024 09:26-0400 Body weight 48.63 kg Emy Plotts [employer].CNM Work Phone: [facility] 10-22-2024 09:26-0400 Diastolic blood pressure 62 mm[Hg] Emy Plotts [employer].CNM Work Phone: [facility] 10-22-2024 09:26-0400 Systolic blood pressure 110 mm[Hg] Emy Plotts [employer]CNM Work Phone: [facility] Encounters Encounter Date Encounter Type Care Provider Facility Start: 03-12-2025 End: 03-12-2025 ambulatory YOON WEST Facility:[facility] Start: 02-26-2025 End: 02-26-2025 ambulatory ELIAZAR RUTLEDGE Facility:[facility] Start: 02-12-2025 End: 02-12-2025 ambulatory ELIAZAR RUTLEDGE Facility:[facility] Start: 02-04-2025 End: 02-04-[address] Gary Guzman DO Work Phone: -Laboratory Start: 02-04-2025 End: 02-04-[address] Gary Guzman DO -Laboratory Work Phone: Start: 02-04-2025 End: 02-04-2025 ambulatory Gary Guzman Facility:[facility] Start: 01-15-2025 End: 01-15-2025 Patient encounter procedure Gary Guzman MD Work Phone: OB/Gynecology Comment on above: Screening for diabet es mellitus (Primary Dx); Supervision of high risk in second trimester (HCC); 24 weeks gestation of (HCC) Start: 01-15-2025 End: 01-15-2025 ambulatory GARY GUZMAN Facility:[facility] Start: 12-18-2024 End: 12-22-2024 Telephone encounter Cleopatra Powell APRN.CNP Work Phone: OB/Gynecology Comment on above: C/S Start: 12-18-2024 End: 12-18-2024 Patient encounter procedure Cleopatra Powell APRN.CNP Work Phone: OB/Gynecology Comment on above: Supervision of high risk in second trimester (HCC) (Primary Dx); 20 weeks gestation of (HCC); History of section Encounter for superv ision of high risk in first trimester, antepartum (HCC) (Primary Dx); 20 weeks gestation of (HCC) Start: 12-18-2024 End: 12-18-2024 ambulatory CLEOPATRA POWELL Facility:[facility] Start: 11-20-2024 End: 11-20-2024 Patient encounter procedure Cleopatra Powell APRN.CNP Work Phone: OB/Gynecology Comment on above: Encounter for superv ision of high risk in first trimester, antepartum (HCC) (Primary Dx); 16 weeks gestation of (HCC); History of section Start: 11-20-2024 End: [facility] Start: 10-22-2024 End: 10-22-2024 [facility] Facility:[facility] Start: 10-22-2024 End: 10-22-2024 Patient 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 procedure 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 [facility] [facility]aternal [facility] Comment on above: Encounter for superv ision of high risk in first trimester, antepartum (HCC) Encounter for superv ision of high risk in first trimester, antepartum (HCC) (Primary Dx); 12 weeks gestation of (HCC); History of section Start: 10-22-2024 End: 10-22-2024 [facility] Start: 09-26-2024 End: 11-26-2024 Follow-up encounter Cleopatra Powell APRN.BAND TOP MAKER Work Phone: OB/Gynecology Start: 09-25-2024 End: 09-25-2024 [facility] Facility:[facility] Start: 02-21-2022 End: 02-21-[address] [facility] Work Phone: Start: 02-21-2022 End: 02-21-2022 Patient encounter procedure [facility], Specimen Start: 12-20-2021 End: 12-20-2021 Patient encounter procedure [facility], [place] 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 Gary Guzman DO Work Phone: Start: 02-04-2025 Total iron binding capacity measurement Dr. Gary Guzman DO Work Phone: Start: 12-18-2024 Us preg uterus after 1st trimest 1/ gestation Cleopatra Powell APRN.BAND TOP MAKER Work Phone: Start: 10-22-2024 Antibody screen GARY MOSES Comment on above: Order Comment: Speci men Type: BLOOD SPECIMEN Ordering Facility: [facility] Address: [address] [place] [address] Performed By: #### T SPN #### [facility] CLIA [id number] [address] [place], [place] [address] [place] [address] [place] Start: 10-22-2024 Us preg uterus after 1st trimest / gestation Cleopatra Powell BARMAID.BAND TOP MAKER Work Phone: Start: 09-25-2024 H/O: section History of section [employer] B Streptococcu s Culture H/O: section History of section [employer] BARMAID.CNM Work Phone: H/O: section History of section Cleopatra Powell BARMAID.BAND TOP MAKER Work Phone: H/O: section History of section Cleopatra Powell BARMAID.BAND TOP MAKER Work Phone: H/O: section History of section Dr. Gary Guzman DO Work Phone: Plan of Treatment Date Care Activity Detail Author Start: 09-25-2029 Screening for malign ant neoplasm of cervix Cervical Cancer Screening [facility] Start: 05-08-2025 End: 05-08-2025 Patient encounter procedure 05/08/2025 10:30 AM EST Office Visit OB/Gynecology [address] [place] [place] [id number] Eliazar Rutledge MD [address] [place] [address] 1 week incision check OB/Gynecology Comment on above: 1 week incision chec k Start: 05-01-2025 ambulatory Ambulatory Facility:[facility] Start: 04-17-2025 End: 04-17-2025 Patient encounter procedure 04/17/2025 10:30 AM EST Routine Office Visit OB/Gynecology [address] [place] [address] Eliazar Rutledge MD [address] [place] [address] OB Pre Op C/S 05/01 @ [facility] OB/Gynecology Comment on above: OB Pre Op C/S 05/01 @ [facility] Start: 03-11-2025 RSV Vaccine (1 - Ris k 1-dose series) RSV Vaccine (1 - Risk 1-dose series) [facility] Start: 02-12-2025 End: 02-12-2025 Patient encounter procedure 02/12/2025 10:50 AM EDT Routine Office Visit OB/Gynecology [address] [place] [address] Eliazar Rutledge MD [address] [place] [id number] OB OB/Gynecology Comment on above: OB Start: 01-15-2025 End: 04-16-2025 ANEMIA REFLEX PANEL ANEMIA REFLEX PANEL Lab Routine Supervision of high risk in second trimester (HCC) Expected: 01/15/2025, Expires: 04/16/2025 [facility] Comment on above: Expected: 01/15/2025 , Expires: 04/16/2025 Start: 01-15-2025 End: 01-15-2026 GESTATIONAL GLUCOSE SCREEN, 1-HOUR, 50 GRAM, NON-FASTING GESTATIONAL GLUCOSE SCREEN, 1-HOUR, 50 GRAM, NON-FASTING Lab Routine Screening for diabetes mellitus Expected: 01/15/2025, Expires: 01/15/2026 [facility] Work Phone: Comment on above: Expected: 01/15/2025 , Expires: 01/15/2026 Start: 01-15-2025 End: 01-15-2026 SYPHILIS TREPONEMAL W/REFLEX SYPHILIS TREPONEMAL W/REFLEX Lab Routine Supervision of high risk in second trimester (HCC) Expected: 01/15/2025, Expires: 01/15/2026 [facility] Comment on above: Expected: 01/15/2025 , Expires: 01/15/2026 Start: 01-15-2025 End: 01-15-2025 Patient encounter procedure 01/15/2025 9:50 AM EDT Routine Office Visit OB/Gynecology [address] [place] [address] Gary Guzman MD [address] [place] [address] OB OB/Gynecology Comment on above: OB Start: 01-05-2025 Influenza vaccination [facility] Start: 12-18-2024 End: 12-18-2024 Patient encounter procedure Maternal Medicine Comment on above: Anatomy Scan Anatomy/ OB Start: 11-20-2024 End: 11-20-2024 Patient encounter procedure 11/20/2024 8:00 AM EDT Routine Office Visit OB/Gynecology [address] [place] [address] Cleopatra Powell APRN.BAND TOP MAKER [address] [place] [address] Ob Visit OB/Gynecology Comment on above: Ob Visit Start: 01-06-2024 Covid-19 Vaccine ( season) Covid-19 Vaccine ( season) [facility] Start: 2017 HPV Vaccine (1 - 3-d ose SCDM series) HPV Vaccine (1 - 3-dose SCDM series) [facility] Start: 2009 Hepatitis B Vaccine (1 of 3 - 19+ 3-dose series) Hepatitis B Vaccine (1 of 3 - 19+ 3-dose series) [facility] Start: 2009 Urine microalbumin profile DTaP,Tdap,Td Vaccine (1 - Tdap) [facility] Start: 2008 Anxiety Screening Anxiety Screening [facility] Start: 2008 Depression Screening Depression Scre ening [facility] Start: 2008 Hepatitis C screening Hepatitis C Sc reening [facility] Start: 2008 HIV screening [facility] Payers Date Payer Category Payer Self-pay [id number] 2024 Unknown [id number] 2024 Private Health Insurance [employer]UL[employer] [id number] 2024 Unknown [id number] Unknown [id number] Unknown [id number] Social History Date Type Detail Facility Start: 05-10-2021 Tobacco smoking stat us MEIS Unknown if ever smoked [facility] Work Phone: Start: 1990 Sex Assigned At Female W [facility] Start: 03-11-2022 End: 09-23-2024 Tobacco smoking status NHIS Never smoked tobacco [facility] Start: 09-23-2024 Tobacco use and exposure Smokeless tobacco non-user [facility] Start: 10-22-2024 End: 01-15-2025 Alcoholic beverage intake Ex-drinker (finding) [facility] Start: 10-22-2024 End: 01-08-2025 History of Social function [facility] Start: 10-22-2024 End: 01-08-2025 Tobacco use panel [facility] Start: 09-05-2024 National Score (1-10 0), lower number is lower risk 69 [facility] Start: 08-13-2024 [facility] Start: 1990 Sex assigned at Not on file [facility] Goals Date Patient Goal Desired Activity /State Personal health goal Clinical Notes 09-23-2024 to 02-06-2025 Gary Guzman MD - 01/15/2025 10:17 AM EDTPatient InstructionsTelephone Encounter - Yoon Mena RN - 12/19/2024 4:55 PM EDTTelephone Encounter - Yoon Mena RN - 12/19/2024 4:55 PM EDT Note Date & Type Note Facility 02-06-2025 Note HNO ID: [id number] Author: GARY GUZMAN MD Service: ? Author Type: Physician Type: Progress Notes Filed: 02/06/2025 08:32 Note Text: Reviewed and normal [facility] 02-04-2025 Note HNO ID: [id number] Author: YOON MENA RN Service: ? Author Type: Registered Nurse Type: Progress Notes Filed: 02/04/2025 09:37 Note Text: 27w0d CBC results done at [facility]. Scan on 02/04/2025 8:35 AM by Provider, Colin, PA-C: CBC 1 hour glucose, Syphilis, and Anemia reflex results from [facility] Scan on 02/04/2025 9:13 AM by Provider, External, PA-C: 1 hour glucose, Syphilis, Anemia Reflex Yoon Mena RN [facility] 01-15-2025 Note HNO ID: [id number] Author: GARY GUZMAN MD Service: ? Author [...] - RTO 4 wks Gary Guzman DO [facility] 01-15-2025 History of Presen t illness Narrative SW- Pt doing well. No pain, vb, lof. Good FM PE: Gen- NAD, well appearing Abd- Soft, gravid, NT See flowsheet A/p 24 wk gestation - MOD: Discussed r/b/a TOLAC vs repeat C/S. Patient planning repeat C/S - 28 wk labs ordered - RTO 4 wks Gary Guzman DO documented in this encounter [facility] 01-15-2025 Instructions Huong Clark RN - 01/15/2025 10:01 AM EDT SEQUENTIAL SCREENINGS The [facility] offers sequential screenings for women who are [...] It will require an appointment with our marine diesel technician. This is not an ultrasound performed [...] the above symptoms, contact our office at [phone] and ask to speak with a nurse. After hours, you can call doctors registry at [phone] OR call [facility] at [phone] and ask to have the doctor reservation clerk paged. If you consider this an emergency, dial 9-1-1 or go to your nearest emergency department. NEED HELP? Are you dealing with a violent or abusive relationship? Are you a victim of rape or sexual assult? Call [facility] ([place]) 24 hour Crisis Hotline: 889.473.2131 or 829-388-5650. MANUAL Your Guide to a Healthy manual is now on-line. Visit [email or web address] [email or web address] to download your free copy documented in this encounter [facility] 12-19-2024 Telephone encount er Note KJ is back up call on 05/01. Surgery sheet to ANJELICA. Yoon Mena RN [facility] 12-19-2024 Miscellaneous Notes Formattin g of this note might be different from the original. KJ is back up call on 05/01. Surgery sheet to ANJELICA. Yoon Mena RN I am planning on being out May. So I can't promise I will do it. I might not be out. Nyasia Luong MD RR is in surgery on 05/01. C/S schedule is open. Yoon Mena RN VICKY 05/06. Planning for repeat c/s. Would like Dr. Luong. 39 weeks makes her 04/29. Would prefer to avoid Dimas/Dimas Romo. Wondering when she could have her repeat c/s with Dr. Luong. Cleopatra Powell APRN.BAND TOP MAKER documented in this encounter [facility] 12-19-2024 Telephone encount er Note I am planning on being out May. So I can't promise I will do it. I might not be out. Nyasia Luong MD [facility] Work Phone: 12-18-2024 Telephone encount er Note RR is in surgery on 05/01. C/S schedule is open. Yoon Mena, RN [facility] 12-18-2024 Telephone encount er Note VICKY 05/06. Planning for repeat c/s. Would like Dr. Luong. 39 weeks makes her 04/29. Would prefer to avoid Dimas/Dimas Clarissa. Wondering when she could have her repeat c/s with Dr. Luong. Cleopatra Powell APRN.BAND TOP MAKER [facility] 12-18-2024 Progress note Formatting of t his [...] weeks or sooner as needed. Cleopatra Powell APRN.BAND TOP MAKER [facility] 12-18-2024 Miscellaneous Notes Formattin g of this [...] Supervision of high risk in second trimester ([facility]) - ICD9: V23.9, ICD10: O09.92 (primary diagnosis) - Continue PNV 2. 20 weeks gestation of ([facility]) - ICD9: V22.2, ICD10: Z3A.20 - Anatomy today, report pending 3. History of section - ICD9: V45.89, ICD10: Z98.891 - Planning for repeat PTL precautions reviewed. RTO in 4 weeks or sooner as needed. Cleopatra Powell APRN.BAND TOP MAKER documented in this encounter [facility] 12-18-2024 Instructions Latoya Guaman MA - 12/18/2024 9:03 AM EDT SEQUENTIAL SCREENINGS The [facility] offers sequential screenings for women who are [...] It will require an appointment with our marine diesel technician. This is not an ultrasound performed [...] the above symptoms, contact our office at [phone] and ask to speak with a nurse. After hours, you can call doctors registry at [phone] OR call [facility] at [phone] and ask to have the doctor reservation clerk paged. If you consider this an emergency, dial 9-0 or go to your nearest emergency department. NEED HELP? Are you dealing with a violent or abusive relationship? Are you a victim of rape or sexual assult? Call [facility] ([place]) 24 hour Crisis Hotline: 523.766.5567 or 903-768-5731. MANUAL Your Guide to a Healthy manual is now on-line. Visit [email or web address] [email or web address] to download your free copy documented in this encounter [facility] 11-20-2024 Progress note Formatting of t his [...] weeks or sooner as needed. Cleopatra Powell APRN.[place] [facility] 11-20-2024 Miscellaneous Notes Formattin g of this [...] weeks or sooner as needed. Cleopatra Powell APRN.BAND TOP MAKER documented in this encounter [facility] 11-20-2024 Instructions Latoya Guaman MA - 11/20/2024 7:54 AM EDT SEQUENTIAL SCREENINGS The [facility] offers sequential screenings for women who are [...] It will require an appointment with our marine diesel technician. This is not an ultrasound performed [...] the above symptoms, contact our office at [phone] and ask to speak with a nurse. After hours, you can call doctors registry at [phone] OR call [facility] at [phone] and ask to have the doctor reservation clerk paged. If you consider this an emergency, dial 9-7 or go to your nearest emergency department. NEED HELP? Are you dealing with a violent or abusive relationship? Are you a victim of rape or sexual assult? Call [facility] ([place]) 24 hour Crisis Hotline: 138.747.7578 or 621-726-4168. MANUAL Your Guide to a Healthy manual is now on-line. Visit [email or web address] [email or web address] to download your free copy documented in this encounter [facility] 10-22-2024 Miscellaneous Notes Formattin g of this [...] [employer] APRN.CNM documented in this encounter [facility] 10-22-2024 Progress note Formatting of t his [...] or sooner if needed [employer] APRN.CNM [facility] 10-22-2024 Instructions Natty Camacho LPN - 10/22/2024 9:06 AM EDT SEQUENTIAL SCREENINGS The [facility] offers sequential screenings for women who are [...] It will require an appointment with our marine diesel technician. This is not an ultrasound performed [...] the above symptoms, contact our office at [phone] and ask to speak with a nurse. After hours, you can call doctors registry at [phone] OR call [facility] at [phone] and ask to have the doctor reservation clerk paged. If you consider this an emergency, dial 9--1 or go to your nearest emergency department. NEED HELP? Are you dealing with a violent or abusive relationship? Are you a victim of rape or sexual assult? Call [facility] ([place]) 24 hour Crisis Hotline: 945.118.9752 or 646-031-2103. MANUAL Your Guide to a Healthy manual is now on-line. Visit [email or web address] [email or web address] to download your free copy documented in this encounter [facility] 09-23-2024 Note HNO ID: [id number] Author: CLEOPATRA POWELL APRN.BAND TOP MAKER Service: ? Author Type: Nurse Practitioner Type: [...] Status: Partner: Name: Belkys Age: 35 Occupation: [employer] Gender: Male History reviewed. No pertinent past medical history. PAST SURGICAL HISTORY Procedure Laterality Date SECTION HX 03/12/2022 Dr. Galloway Current Outpatient Medications Medication Sig Dispense Refill aspirin, enteric coated (ECOTRIN LOW STRENGTH) 81 mg EC tablet Take 1 tablet by mouth once daily. 90 tablet 3 vit no.[id number] ( VITAMIN) 27 mg iron- 800 mcg [...] hematuria or dysuria (more content not included)... [facility] Evaluation note No assessment inform ation available [facility] Work Phone: Evaluation note Diagnosis Encounter for supervision of high risk in first trimester, antepartum (HCC) [facility] Diagnosis Encounter for supervision of high risk in first trimester, antepartum (HCC)- Primary 12 weeks gestation of (HCC) state, incidental History of section Other postprocedural status [facility] Diagnosis Encounter for supervision of high risk in first trimester, antepartum (HCC)- Primary 16 weeks gestation of (HCC) state, incidental History of section Other postprocedural status documented in this encounter [facility] note* Diagnosis Supervision of high risk in second trimester (HCC)- Primary Unspecified high-risk 20 weeks gestation of (HCC) state, incidental History of section Other postprocedural status documented in this encounter [facility] note* Diagnosis Encounter for supervision of high risk in first trimester, antepartum (HCC)- Primary 20 weeks gestation of (HCC) state, incidental [facility] Diagnosis Screening for diabetes mellitus- Primary Supervision of high risk in second trimester (HCC) Unspecified high-risk 24 weeks gestation of (HCC) state, incidental documented in this encounter [facility] for referral (narrative)No reason for referral information [facility] Work Phone: Chief Complaint and Reason for Visit Chief Complaint Admit Date LABS February 04, 2025 6: 53am Summary Purpose Family History No Family History Records FoundNo Family History Records Found Advance Directives No Advanced Directives Records FoundNo Advanced Directives Records Found Additional Source Comments Goals (unrecognized section and content) Goals may be documented in a n alternate sectionGoals may be documented in an alternate section Source Comments (unrecognize d section and content) In the event this informatio n is protected by the Federal Confidentiality of Alcohol and Drug Abuse Patient Records regulations: The Federal rules restrict any use of the information to criminally investigate or prosecute any alcohol or drug abuse patient.[facility] the event this information is protected by the Federal Confidentiality of Alcohol and Drug Abuse Patient Records regulations: The Federal rules restrict any use of the information to criminally investigate or prosecute any alcohol or drug abuse patient.[facility] the event this information is protected by the Federal Confidentiality of Alcohol and Drug Abuse Patient Records regulations: The Federal rules restrict any use of the information to criminally investigate or prosecute any alcohol or drug abuse patient.[facility] the event this information is protected by the Federal Confidentiality of Alcohol and Drug Abuse Patient Records regulations: The Federal rules restrict any use of the information to criminally investigate or prosecute any alcohol or drug abuse patient.[facility] the event this information is protected by the Federal Confidentiality of Alcohol and Drug Abuse Patient Records regulations: The Federal rules restrict any use of the information to criminally investigate or prosecute any alcohol or drug abuse patient.[facility] the event this information is protected by the Federal Confidentiality of Alcohol and Drug Abuse Patient Records regulations: The Federal rules restrict any use of the information to criminally investigate or prosecute any alcohol or drug abuse patient.[facility] the event this information is protected by the Federal Confidentiality of Alcohol and Drug Abuse Patient Records regulations: The Federal rules restrict any use of the information to criminally investigate or prosecute any alcohol or drug abuse patient.[facility] the event this information is protected by the Federal Confidentiality of Alcohol and Drug Abuse Patient Records regulations: The Federal rules restrict any use of the information to criminally investigate or prosecute any alcohol or drug abuse patient.[facility] Reason for Visit (unrecogniz ed section and content) Reason Comments US Specialty Diagnoses / Procedures Referred By Contac t Referred To Contact [facility] Diagnoses Encounter for supervision of high risk in first trimester, antepartum (HCC) Procedures OBSTETRIC ULTRASOUND WHI US PREG UTERUS AFTER 1ST TRIMEST GESTATION Cleopatra Powell APRN.BAND TOP MAKER [address] [place] [address] Phone: tel: fax: [facility] [address] [place] [address] Referral ID Status Reason Start Date Expiration Date V isits Requested Visits Authorized [id number] Closed Auto-Generate d Referral 09/25/2024 09/25/2025 1 1 Reason Onset Date Comments Care 10/22/2024 Reason Onset Date Comments Care 11/20/2024 Reason Onset Date Comments Care 12/18/2024 Referral ID Status Reason Start Date Expiration Date V isits Requested Visits Authorized [id number] Closed Auto-Generate d Referral 09/25/2024 09/25/2025 1 1 Reason Comments C/S Reason Onset Date Comments Care 01/15/2025 Care Teams (unrecognized sec tion and content) Team Status: Active Member Role/Relationship Status Dates Dr. Fawad Mathias DO Primary care physician Active Team Status: Inactive Member Role/Relationship Status Dates Dr. Gary Guzman DO Attending physician Active Start: February 04, 2025 End: February 04, 2025 Dr. Gary Guzman DO Referring Provider Active Start: February 04, 2025 End: February 04, 2025 Dr. Fawad Mathias DO Primary care physician Active Start: February 04, 2025 End: February 04, 2025 INFORMATION SOURCE (unrecogn ized section and content) DATE CREATED AUTHOR 02/13/2025 [facility] DATE CREATED AUTHOR AUTHOR'S CHUCKY HAWLEY 03/14/2025 [facility] FOR RECORDS PERTAINING TO PATIENTS WHO [...] BE BASED ON THE PRIMARY CLINICAL RECORDS. [facility] [employer] [facility]. provides no warranty or guarantee of the accuracy or completeness of information in this document.
[2025-05-01] MEDS: Lactated Ringers 1,000 ML 999 ML IV (10:05)
--- OUTSIDE RECORDS SUMMARY | 2025-05-01 10:18 | XMS RPT_ITS | CCD ---
Author Organization [facility] Care Team Providers Care Playroom Attendant Name Role Phone Unavailable Primary Care Provider Unavailabl e Dr. Gary Guzman DO Attending Physician [phone] Dr. Gary Guzman DO Referring Provider Dr. Fawad Mathias DO Primary Care Physician Eliazar Rutledge Attending Unavailable Eliazar Rutledge Admitting Unavailable Gary Guzman Referring Unavailable Gary Guzman Attending Unavailable Fawad Mathias Primary Care Unavailable GARY GUZMAN Attending Unavailable CLEOPATRA POWELL Attending Unavailable HAURY, CLEOPATRA Referring Unavailable HAURY, CLEOPATRA Referring Unavailable HAURY, CLEOPATRA Attending Unavailable HAURY, CLEOPATRA Referring Unavailable HAURY, CLOEPATRA Referring Unavailable EMY EDGE Attending Unavailable HAURY, CLEOPATRA Referring Unavailable HAURY, CLEOPATRA Attending Unavailable SELF Referring Unavailable YOON WEST Attending Unavailable ELIAZAR RULTEDGE Attending Unavailable ELIAZAR RUTLEDGE Attending Unavailable Medications [...] for pain (1 source) Start: 03-11-2022 vit no.739-jntj-nrmod ( VITAMIN) 27 mg iron- 800 mcg tab (8 sources) take 1 tablet by mouth once daily vit no.955-adwq-exgqe ( VITAMIN) 27 mg iron- 800 mcg [...] of ; Translations: [16 weeks gestation of ([facility])] Onset: 11-20-2024 Episodic Residual codes; unclassified (1 source) 12 weeks gestation of ; Translations: [12 weeks gestation of ([facility])] Onset: 10-22-2024 Episodic Residual codes; unclassified (1 source) 8 weeks gestation of ; Translations: [8 weeks gestation of ([facility])] Onset: 09-25-2024 Episodic Results Test Name Value Interpretation Reference Range Facility CBC-Complete Blood Cnt No Di ffon 02-04-2025 Erythrocyte distribution width (RBC) [Ratio] 13.6 % Normal 11.6-14.6 [facility] Comment on above: Performed By: #### L 503.6030, L503.6550, L501.0250, L509.8002, L100.0500 #### [facility] [address] [place], [address] Hematocrit (Bld) [Volume fraction] 35.0 % Low 37-47 [facility] Comment on above: Performed By: #### L 503.6030, L503.6550, L501.0250, L509.8002, L100.0500 #### [facility] [address] [place], [address] Hemoglobin (Bld) [Mass/Vol] 11.7 g/dL Low 12.0-15.0 [facility] Comment on above: Performed By: #### L 503.6030, L503.6550, L501.0250, L509.8002, L100.0500 #### [facility] [address] [place], [address] MCH (RBC) [Entitic mass] 31.9 pg Normal 27.0-32.0 [facility] Comment on above: Performed By: #### L 503.6030, L503.6550, L501.0250, L509.8002, L100.0500 #### [facility] [address] [facility], [address] MCHC (RBC) [Mass/Vol] 33.4 g/dL Normal 32-36 [facility] Comment on above: Performed By: #### L 503.6030, L503.6550, L501.0250, L509.8002, L100.0500 #### [facility] [address] [place], [address] MCV (RBC) [Entitic vol] 95.4 fL Normal 81-99 [facility] Comment on above: Performed By: #### L 503.6030, L503.6550, L501.0250, L509.8002, L100.0500 #### [facility] [address] [place], [address] Platelet mean volume (Bld) [Entitic vol] 10.0 fL Normal 6.2-12.0 [facility] Comment on above: Performed By: #### L 503.6030, L503.6550, L501.0250, L509.8002, L100.0500 #### [facility] [address] [place], [address] Platelets (Bld) [#/Vol] 218 10*3/uL Normal 150-450 [facility] Comment on above: Performed By: #### L 503.6030, L503.6550, L501.0250, L509.8002, L100.0500 #### [facility] [address] [place], [address] RBC (Bld) [#/Vol] 3.67 10*6/uL Low 4.2-5.4 [facility] Comment on above: Performed By: #### L 503.6030, L503.6550, L501.0250, L509.8002, L100.0500 #### [facility] [address] [place], [address] RDW SD 47.3 fl High 35.1-43.9 [facility] Comment on above: Performed By: #### L 503.6030, L503.6550, L501.0250, L509.8002, L100.0500 #### [facility] [address] [place], [address] WBC (Bld) [#/Vol] 10.1 10*3/uL Normal 4.4-11.0 [facility] Comment on above: Performed By: #### L 503.6030, L503.6550, L501.0250, L509.8002, L100.0500 #### [facility] [address] [place], [address] Erythrocyte distribution wid th ratioOrdered By: Gary Guzman on 02-04-2025 Erythrocyte distribution width (RBC) [Ratio] 13.6 % 11.6-14.6 [facility] Erythrocyte distribution wid th standard deviationOrdered By: Gary Guzman on 02-04-2025 Erythrocyte distribution width (RBC) [Ratio] 47.3 fl High 35.1-43.9 [facility] Ferritinon 02-04-2025 Ferritin [Mass/Vol] 40 ng/mL Normal 22-378 [facility] Comment on above: Performed By: #### L 503.6030, L503.6550, L501.0250, L509.8002, L100.0500 #### [facility] [address] [place], [address] Glucose Challenge Gest 1H 50 manjit 02-04-2025 GLU GEST 50g 1H 127 mg/dL Normal 70-140 [facility] Comment on above: Performed By: #### L 503.6030, L503.6550, L501.0250, L509.8002, L100.0500 #### [facility] [address] [place], [address] Glucose measurement at 2 doreen rs post-dose gestational glucose tolerance testOrdered By: Gary Guzman on 02-04-2025 Glucose [Mass/Vol] 127 mg/dL 70-140 [facility] Hematocrit Auto (Bld) [Volum e fraction]Ordered By: Gary Guzman on 02-04-2025 Hematocrit (Bld) [Volume fraction] 35.0 % Low 37-47 [facility] Hemoglobin measurementOrdere d By: Gary Guzman on 02-04-2025 Hemoglobin (Bld) [Mass/Vol] 11.7 g/dL Low 12.0-15.0 [facility] Iron measurement (mass/mass) Ordered By: Gary Guzman on 02-04-2025 Iron (Unsp spec) [Mass/Mass] 92 ug/dL 50-170 [facility] Iron+Iron Binding Capacityon 02-04-2025 Iron [Mass/Vol] 92 ug/dL Normal 50-170 [facility] Comment on above: Performed By: #### L 503.6030, L503.6550, L501.0250, L509.8002, L100.0500 #### [facility] [address] [place], [address] IRON SATURATION 23.1 Normal 13-59 [facility] Comment on above: Performed By: #### L 503.6030, L503.6550, L501.0250, L509.8002, L100.0500 #### [facility] [address] [place], [address] TIBC 398 ug/dL Normal 250-450 [facility] Comment on above: Performed By: #### L 503.6030, L503.6550, L501.0250, L509.8002, L100.0500 #### [facility] [address] [place], [address] UIBC 306 ug/dL Normal 228-428 [facility] Comment on above: Performed By: #### L 503.6030, L503.6550, L501.0250, L509.8002, L100.0500 #### [facility] [address] [place], [address] MCV (mean corpuscular volume ) determinationOrdered By: Gary Guzman on 02-04-2025 MCV (RBC) [Entitic vol] 95.4 fL 81-99 [facility] Mean corpuscular hemoglobin (MCH) determinationOrdered By: Gary Guzman on 02-04-2025 MCH (RBC) [Entitic mass] 31.9 pg 27.0-32.0 [facility] Mean corpuscular hemoglobin concentration (MCHC) determinationOrdered By: Gary Guzman on 02-04-2025 MCHC (RBC) [Mass/Vol] 33.4 g/dL 32-36 [facility] Mean platelet volume determi nationOrdered By: Gary Guzman on 02-04-2025 Platelet mean volume (Bld) [Entitic vol] 10.0 fL 6.2-12.0 [facility] No Panel InformationOrdered By: Gary Guzman on 02-04-2025 Unsaturated Iron Binding Capacity 306 ug/dL 228-428 [facility] Platelet countOrdered By: Sa ra Guzman on 02-04-2025 Platelets (Bld) [#/Vol] 218 10*3/uL 150-450 [facility] RBC Auto (Bld) [#/Vol]Ordere d By: Gary Guzman on 02-04-2025 RBC (Bld) [#/Vol] 3.67 10*6/uL Low 4.2-5.4 [facility] Serum or plasma ferritin selam surement (mass/volume)Ordered By: Gary Guzman on 02-04-2025 Ferritin [Mass/Vol] 40 ng/mL 22-378 [facility] Serum or plasma iron saturat ion measurement (mass fraction)Ordered By: Gary Guzman on 02-04-2025 Iron saturation [Mass fraction] 23.1 % 13-59 [facility] Syphilis Antibodieson 2024 Syphilis Abs Non-Reactive Normal Nonreactive [facility] Comment on above: Performed By: #### L 503.6030, L503.6550, L501.0250, L509.8002, L100.0500 #### [facility] 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 Planning for repeat c/s. Would like Dr. Luong. 39 weeks makes her 04/29. Would prefer to avoid [place]. Wondering when she could have her [...] Date Reviewed: 12/18/2024 Reviewed by: Cleopatra Powell APRN.WELD LAY OUT WORKER - Fully Assessed Reason for Visit: C/S [Other] Prescriptions as of 01/02/2025 - vit no.032-oonb-tpuqj ( VITAMIN) 27 mg iron- 800 mcg tab Take 1 tablet by mouth once daily. Problem List As Of Date 12/18/2024 Noted Resolved Supervision of high risk in second tr*09/25/2024 History of section [Z98.891] 09/25/2024 Encounter Status:Closed by CLEOPATRA POWELL on 12/22/24 Normal [facility] Examination level ultrasound on 12-18-2024 Indication [...] 12 oz EFW by: Hadlock (HC-AC-FL) Extended Transliterator 5.3 mm CM 3.9 mm 15% Nicolaides [...] normal LVOT view: normal 3-vessel view: normal 1-xzdzwj-gfccysn view: normal Heart / Thorax Situs: situs [...] Read By: Prasad Herring M.D. MATERNAL MEDICINE [facility] Radiology Study observation (narrative) [facility] CBC W Auto Differential pane l (Bld)on 10-22-2024 Basophils (Bld) [#/Vol] 0.04 10*3/uL Normal <0.11 [facility] Comment on above: Order Comment: Speci men Type: BLOOD SPECIMEN Ordering Facility: [facility] Address: [address] [place] [address] Performed By: #### 5 7021-8 #### [facility] CLIA [id number] [address] [place] [address] [place] Basophils/100 WBC (Bld) 0.5 % Normal C [facility] Comment on above: Order Comment: Speci men Type: BLOOD SPECIMEN Ordering Facility: [facility] Address: [address] [place] [address] Performed By: #### 5 7021-8 #### [facility] CLIA [id number] [address] [place] [address] [place] Differential cell count method Nom (Bld) Auto Normal [facility] Comment on above: Order Comment: Speci men Type: BLOOD SPECIMEN Ordering Facility: [facility] Address: [address] [place] [address] Performed By: #### 5 7021-8 #### [facility] CLIA [id number] [address] [place] [address] [place] Eosinophils (Bld) [#/Vol] 0.21 10*3/uL Normal <0.46 [facility] Comment on above: Order Comment: Speci men Type: BLOOD SPECIMEN Ordering Facility: [facility] Address: [address] [place] [address] Performed By: #### 5 7021-8 #### [facility] CLIA [id number] [address] [place] [address] [place] Eosinophils/100 WBC (Bld) 2.8 % Normal [facility] Comment on above: Order Comment: Speci men Type: BLOOD SPECIMEN Ordering Facility: [facility] Address: [address] [place] [address] Performed By: #### 5 7021-8 #### [facility] CLIA [id number] [address] [place] [address] [place] Erythrocyte distribution width (RBC) [Ratio] 12.8 % Normal 11.5-15.0 [facility] Comment on above: Order Comment: Speci men Type: BLOOD SPECIMEN Ordering Facility: [facility] Address: [address] [place] [address] Performed By: #### 5 7021-8 #### [facility] CLIA [id number] [address] [place] [address] [place] Hematocrit (Bld) [Volume fraction] 37.2 % Normal 36.0-46.0 [facility] Comment on above: Order Comment: Speci men Type: BLOOD SPECIMEN Ordering Facility: [facility] Address: [address] [place] [id number] Performed By: #### 5 7021-8 #### [facility] CLIA [id number] [address] [place] [address] [place] Hemoglobin (Bld) [Mass/Vol] 12.8 g/dL Normal 11.5-15.5 [facility] Comment on above: Order Comment: Speci men Type: BLOOD SPECIMEN Ordering Facility: [facility] Address: [address] [place], [place] [address] Performed By: #### 5 7021-8 #### [facility] CLIA [id number] [address] [place] [address] [place] Immature granulocytes (Bld) [#/Vol] 10*3/uL Normal <0.10 [facility] Comment on above: Order Comment: Speci men Type: BLOOD SPECIMEN Ordering Facility: [facility] Address: [address] [place], [place] [address] Performed By: #### 5 7021-8 #### [facility] CLIA [id number] [address] [place] [address] [place] Immature granulocytes/100 WBC (Bld) 0.3 % Normal [facility] Comment on above: Order Comment: Speci men Type: BLOOD SPECIMEN Ordering Facility: [facility] Address: [address] [place] [address] Performed By: #### 5 7021-8 #### [facility] CLIA [id number] [address] [place] [address] [place] Lymphocytes (Bld) [#/Vol] 1.42 10*3/uL Normal 1.00-4.00 [facility] Comment on above: Order Comment: Speci men Type: BLOOD SPECIMEN Ordering Facility: [facility] Address: [address] [place] [address] Performed By: #### 5 7021-8 #### [facility] CLIA [id number] [address] [place] [address] [place] Lymphocytes/100 WBC (Bld) 19.1 % Normal [facility] Comment on above: Order Comment: Speci men Type: BLOOD SPECIMEN Ordering Facility: [facility] Address: [address] [place] [address] Performed By: #### 5 7021-8 #### [facility] CLIA [id number] [address] [place] [address] [place] MCH (RBC) [Entitic mass] 30.5 pg Normal 26.0-34.0 [facility] Comment on above: Order Comment: Speci men Type: BLOOD SPECIMEN Ordering Facility: [facility] Address: [address] [place] [address] Performed By: #### 5 7021-8 #### [facility] CLIA [id number] [address] [place] [address] [place] MCHC (RBC) [Mass/Vol] 34.4 g/dL Normal 30.5-36.0 [facility] Comment on above: Order Comment: Speci men Type: BLOOD SPECIMEN Ordering Facility: [facility] Address: [address] [place] [address] Performed By: #### 5 7021-8 #### [facility] [id number] [address] [place] [address] [place] MCV (RBC) [Entitic vol] 88.6 fL Normal 80.0-100.0 C [facility] Comment on above: Order Comment: Speci men Type: BLOOD SPECIMEN Ordering Facility: [facility] Address: [address] [place] [address] Performed By: #### 5 7021-8 #### [facility] CLIA [id number] [address] [place] [address] [place] Monocytes (Bld) [#/Vol] 0.37 10*3/uL Normal <0.87 [facility] Comment on above: Order Comment: Speci men Type: BLOOD SPECIMEN Ordering Facility: [facility] Address: [address] [place] [address] Performed By: #### 5 7021-8 #### [facility] CLIA [id number] [address] [place] [address] [place] Monocytes/100 WBC (Bld) 5.0 % Normal [facility] Comment on above: Order Comment: Speci men Type: BLOOD SPECIMEN Ordering Facility: [facility] Address: [address] [place] [address] Performed By: #### 5 7021-8 #### [facility] CLIA [id number] [address] [place] [address] [place] Neutrophils (Bld) [#/Vol] 5.38 10*3/uL Normal 1.45-7.50 [facility] Comment on above: Order Comment: Speci men Type: BLOOD SPECIMEN Ordering Facility: [facility] Address: [address] [place] [address] Performed By: #### 5 7021-8 #### [facility] CLIA [id number] [address] [place] [address] [place] Neutrophils/100 WBC (Bld) 72.3 % Normal [facility] Comment on above: Order Comment: Speci men Type: BLOOD SPECIMEN Ordering Facility: [facility] Address: [address] [place] [address] Performed By: #### 5 7021-8 #### [facility] CLIA [id number] [address] [place] [address] [place] Nucleated RBC (Bld) [#/Vol] 10*3/uL Normal <0.01 [facility] Comment on above: Order Comment: Speci men Type: BLOOD SPECIMEN Ordering Facility: [facility] Address: [address] [place] [address] Performed By: #### 5 7021-8 #### [facility] CLIA [id number] [address] [place] [address] [place] Nucleated RBC/100 WBC (Bld) [Ratio] 0.0 /100 WBC Normal [facility] Comment on above: Order Comment: Speci men Type: BLOOD SPECIMEN Ordering Facility: [facility] Address: [address] [place], [place] [address] Performed By: #### 5 7021-8 #### [facility] CLIA [id number] [address] [place] [address] [place] Platelet mean volume (Bld) [Entitic vol] 9.9 fL Normal 9.0-12.7 [facility] Comment on above: Order Comment: Speci men Type: BLOOD SPECIMEN Ordering Facility: [facility] Address: [address] [place], [place] [address] Performed By: #### 5 7021-8 #### [facility] CLIA [id number] [address] [place] [address] [place] Platelets (Bld) [#/Vol] 211 10*3/uL Normal 150-400 [facility] Comment on above: Order Comment: Speci men Type: BLOOD SPECIMEN Ordering Facility: [facility] Address: [address] [place] [address] Performed By: #### 5 7021-8 #### [facility] CLIA [id number] [address] [place] [address] [place] RBC (Bld) [#/Vol] 4.20 10*6/uL Normal 3.90-5.20 [facility] Comment on above: Order Comment: Speci men Type: BLOOD SPECIMEN Ordering Facility: [facility] Address: [address] [place] [address] Performed By: #### 5 7021-8 #### [facility] CLIA [id number] [address] [place] [address] [place] WBC (Bld) [#/Vol] 7.44 10*3/uL Normal 3.70-11.00 [facility] Comment on above: Order Comment: Speci men Type: BLOOD SPECIMEN Ordering Facility: [facility] Address: [address] [place] [address] Performed By: #### 5 7021-8 #### [facility] CLIA [id number] [address] [place] [address] [place] Examination level ultrasound on 10-22-2024 Indication First trimester anatomic survey Impression remote read The patient is referred for a first trimester anatomy scan including nuchal translucency measurement as clinically indicated. - Single, live, intrauterine . - Chokio rump length measurement is consistent with the [...] view: normal 4-chamber view with color: normal 2-gorfmu-ctqqzaz view: normal Abdominal cord insertion: normal Stomach: [...] Read By: Cherelle Reilly M.D. MATERNAL MEDICINE [facility] Radiology Study observation (narrative) [facility] HBV surface Ag Ser Qlon 10-05 HBV surface Ag Ql (S) Negative Normal Negative [facility] Comment on above: Order Comment: Speci men Type: BLOOD SPECIMEN Ordering Facility: [facility] Address: [address] [place] [address] Performed By: #### 5 5454-3 #### [facility] CLIA [id number] [address] [place] [address] OF [facility] HCV Ab Ser Qlon 10-22-2024 HCV Ab Ql (S) Negative Normal Negative [facility] Comment on above: Order Comment: Speci men Type: BLOOD SPECIMEN Ordering Facility: [facility] Address: [address] [place] [address] Result Comment: The result suggests no evidence of infection with Hepatitis C virus. Should recent infection be suspected, repeat testing may be considered 4-6 weeks after this draw. Performed By: #### 1 6128-1 #### [facility] CLIA [id number] [address] [place] [address] [place] HIV 1+2 Ab IA Qlon HIV 1 and 2 Ab IA.rapid Nom (S/P/Bld) Normal [facility] Comment on above: Order Comment: Speci men Type: BLOOD SPECIMEN Ordering Facility: [facility] Address: [address] [place] [address] Result Comment: Test not indicated. Performed By: #### 5 5454-3 #### [facility] CLIA [id number] [address] [place] [address] [place] HIV 1+2 Ab+HIV1 p24 Ag IA Ql Non-Reactive Normal Nonreactive [facility] Comment on above: Order Comment: Speci men Type: BLOOD SPECIMEN Ordering Facility: [facility] Address: [address] [place] [address] Performed By: #### 5 5454-3 #### [facility] CLIA [id number] [address] [place] [address] [place] HIV immunoassay testing algorithm interpretation (S/P/Bld) [Interp] Normal [facility] Comment on above: Order Comment: Speci men Type: BLOOD SPECIMEN Ordering Facility: [facility] Address: [address] [place] [address] Result Comment: No e vidence of HIV-1 or HIV-2 infection. Should recent infection be suspected, repeat testing may be considered 2-3 weeks after this draw. [place] Rev. Code 3701.243(E): This information has been [...] diagnoses. Performed By: #### 5 5454-3 #### [facility] CLIA [id number] [address] [place] [address] [place] HbA1c (Bld)on 10-22-2024 Average glucose Estimated from glycated hemoglobin (Bld) [Mass/Vol] 100 mg/dL Normal [facility] Comment on above: Order Comment: Speci men Type: BLOOD SPECIMEN Ordering Facility: [facility] Address: [address] [place] [address] Result Comment: eAG: (Estimated average glucose) is a calculated value from HgbA1c and is inside technical sales representative of the average blood glucose level in the last 2-3 month period. Performed By: #### 5 5454-3 #### [facility] CLIA [id number] [address] [place] [address] [place] HbA1c (Bld) [Mass fraction] 5.1 % Normal 4.3-5.6 [facility] Comment on above: Order Comment: Nanda davis Type: BLOOD SPECIMEN Ordering Facility: [facility] Address: [address] [place] [address] Result Comment: [place] [employer] guidelines indicate that patients with HgbA1c in the range 5.7-6.4% are at increased risk for development of diabetes, and intervention by lifestyle modification may be beneficial. HgbA1c greater or equal to 6.5% is considered diagnostic of diabetes. Performed By: #### 5 5454-3 #### [facility] CLIA [id number] [address] [place] [address] [place] RUBELLA IGG ANTIBODYon 10-22 RUBELLA IGG AB, QUAL Positive Normal Positive [facility] Comment on above: Order Comment: Nanda davis Type: BLOOD SPECIMEN Ordering Facility: [facility] Address: [address] [place] [address] Result Comment: The result suggests recent or past exposure to Rubella virus or history of Rubella vaccination. Positive result may also be seen due to presence of passively-transferred antibodies. Please correlate with patient's history. Performed By: #### 5 5454-3 #### [facility] CLIA [id number] [address] [place] [address] [place] Reagin and Treponema pallidu m IgG and IgM [Interp]on 10-22-2024 T. pallidum IgG+IgM IA Ql (S) Non-Reactive Normal Nonreactive [facility] Comment on above: Order Comment: Nanda davis Type: BLOOD SPECIMEN Ordering Facility: [facility] Address: [address] [place] [address] Performed By: #### 5 5454-3 #### [facility] CLIA [id number] [address] [place] [address] [place] Reagin+T pallidum IgG+IgM Se rPl-Impon 10-22-2024 Reagin and Treponema pallidum IgG and IgM [Interp] Cannot exclude recent Treponemal infection if specimen collected within 7-10 days after appearance of suspect lesions or 2-3 weeks after an exposure. Clinical correlation is required. Normal [facility] Comment on above: Order Comment: Speci men Type: BLOOD SPECIMEN Ordering Facility: [facility] Address: [address] [place] [address] Performed By: #### 5 5454-3 #### [facility] CLIA [id number] [address] [place] [address] [place] TYPE + SCREEN PRENATALon ABO O Normal [facility] Comment on above: Order Comment: Speci men Type: BLOOD SPECIMEN Ordering Facility: [facility] Address: [address] [place] [address] Performed By: #### T SPN #### [facility] CLIA [id number] [address] [place] [address] [place] Rh Nom (Bld) Positive Normal [facility] Comment on above: Order Comment: Speci men Type: BLOOD SPECIMEN Ordering Facility: [facility] Address: [address] [place] [address] Result Comment: Mario ected result: Previously reported as Invalid on 10/22/2024 at 6:52 PM EDT. Performed By: #### T SPN #### [facility] CLIA [id number] [address] [place] [address] [place] TYPE AND SCREEN EXPIRATION 10/25/2024 23:59 Normal [facility] Comment on above: Order Comment: Speci men Type: BLOOD SPECIMEN Ordering Facility: [facility] Address: [address] [place] [address] Performed By: #### T SPN #### [facility] CLIA [id number] [address] [place] [address] [place] Bacteria Ur Culton Bacteria identified Cx Nom (U) ORGANISM ID: 1 50,000-<100,000 CFU/ml Lactobacillus jensenii Normal urogenital basim No further workup Normal [facility] Comment on above: Performed By: #### 5 5454-3 #### [facility] CLIA [id number] [address] [place] [address] [place] C. trachomatis+N. gonorrhoea e DNA MARC+probe Ql (Unsp spec)on 09-25-2024 C. trachomatis rRNA MARC+probe Ql (Unsp spec) Not detected Normal Not detected [facility] Comment on above: Order Comment: Speci men Type: SWAB Ordering Facility: [facility] Address: [address] [place] [address] Performed By: #### T RVAMP, 42610-4 #### [facility] CLIA [id number] [address] [place] [address] [place] N. gonorrhoeae rRNA MARC+probe Ql (Unsp spec) Not detected Normal Not detected [facility] Comment on above: Order Comment: Speci men Type: SWAB Ordering Facility: [facility] Address: [address] [place] [address] Performed By: #### T RVAMP, 53103-2 #### [facility] CLIA [id number] [address] [place] [address] [place] HIGH RISK HUMAN PAPILLOMA ANANYA (HPV), PCR FOR DETECTION AND GENOTYPINGon 09-25-2024 HPV 16 Ag Ql (Unsp spec) Not detected Normal Not detec nickolas [facility] Comment on above: Order Comment: Speci men Type: FLUID SPECIMEN Ordering Facility: [facility] Address: [address] [place] [address] Performed By: #### H PVHRT #### [facility] CLIA [id number] [address] [place] [address] [place] HPV 18 Ag Ql (Unsp spec) Not detected Normal Not detec nickolas [facility] Comment on above: Order Comment: Speci men Type: FLUID SPECIMEN Ordering Facility: [facility] Address: [address] [place] [address] Performed By: #### H PVHRT #### [facility] CLIA [id number] [address] [place] [address] [place] HPV 31+33+35+39+45+51+52+56+ 58+59+66+68 DNA MARC+probe Ql (Cvx) Not detected Normal Not detected [facility] Comment on above: Order Comment: Speci men Type: FLUID SPECIMEN Ordering Facility: [facility] Address: [address] [place] [address] Result Comment: High Risk HPV Other Type includes HPV types 31, 33, 35, 39, 45, 51, 52, 56, 58, 59, 66 and 68. Performed By: #### H PVHRT #### [facility] CLIA [id number] [address] [place] [address] [place] PAP TESTon 09-25-2024 ADEQUACY Normal [facility] Comment on above: Order Comment: Speci men Type: FLUID SPECIMEN Ordering Facility: [facility] Address: [address] [place] [address] Result Comment: Sati sfactory for interpretation. Transformation zone present Performed By: #### L [id number] #### [facility] CLIA [id number] [place] [address] [place] [facility] CLIA [id number] [address] [place] [address] [place] CASE REPORT Normal [facility] Comment on above: Order Comment: Speci men Type: FLUID SPECIMEN Ordering Facility: [facility] Address: [address] [place] [address] Result Comment: Gyne cologic Cytology Report Case: [id number] Authorizing Provider: Cleopatra Powell APRN.WELD LAY OUT WORKER Collected: 09/25/2024 11:41 AM Ordering Location: OB/Gynecology Received: 09/25/2024 02:49 PM First Screen: Yoon Luong, CT, ASCP Specimen: Pap Test, ThinPrep, Cervix Performed By: #### L [id number] #### [facility] CLIA [id number] [address] [place] [address] [place] [facility] CLIA [id number] [address] [place] [address] [place] CLINICAL HISTORY, CYTOLOGY, SHOE CEMENTER Routine Exam Normal [facility] Comment on above: Order Comment: Speci men Type: FLUID SPECIMEN Ordering Facility: [facility] Address: [address] [place] [address] Performed By: #### L [id number] #### [facility] CLIA [id number] [address] [place] [address] [place] [facility] CLIA [id number] [address] [place] [address] [place] FINAL PERFORMING LAB Normal [facility] Comment on above: Order Comment: Speci men Type: FLUID SPECIMEN Ordering Facility: [facility] Address: [address] [place] [address] Result Comment: Tech nical component, pharmacovigilance scientist screening performed at: [facility], [address] [place] [address] CLIA: [id number] Diagnostic interpretation performed at: [facility], [address] [place] [address] CLIA# [id number] [employer] Operator: Fawad Porter MD Performed By: #### L [id number] #### [facility] CLIA [id number] [address] [place] [address] [place] [facility] CLIA [id number] [address] [place] [address] [place] INTERPRETATION, CYTOLOGY, SHOE CEMENTER Normal [facility] Comment on above: Order Comment: Speci men Type: FLUID SPECIMEN Ordering Facility: [facility] Address: [address] [place] [address] Result Comment: Nega tive for intraepithelial lesion or malignancy. at 1058 EDT Performed By: #### L [id number] #### [facility] CLIA [id number] [address] [place] [address] [place] [facility] CLIA [id number] [address] [place] [address] [place] LMP 07/30/2024 Normal [facility] Comment on above: Order Comment: Speci men Type: FLUID SPECIMEN Ordering Facility: [facility] Address: [address] [place] [address] Performed By: #### L [id number] #### [facility] CLIA [id number] [address] [place] [address] [place] [facility] CLIA [id number] [address] [place], [place] [id number] [place] PAP DISCLAIMER COMMENT The Pap Smear is a screening test for cervical cancer. False negative results occur with all screening tests, emphasizing the need for rescreening at recommended intervals, and clinical correlation. Normal [facility] Comment on above: Order Comment: Speci men Type: FLUID SPECIMEN Ordering Facility: [facility] Address: [address] [place] [address] Performed By: #### L [id number] #### [facility] CLIA [id number] [address] [place] [address] [place] [facility] CLIA [id number] [address] [place], [place] [id number] [place] PAP COLUMN PRECASTER COMMENT This specimen has been analyzed by the FDA-approved [employer] System, which uses digital imaging and an enhanced artificial intelligence image analysis algorithm to identify swan of interest on the microscopic slide, to assist the curriculum assistant principal and pathologist in evaluating cells on ThinPrep Pap tests. Following analysis, swan of interest on the microscopic slide selected by the algorithm are reviewed by a curriculum assistant principal. If a sample requires hierarchical review, the pathologist will review the same swan of interest selected by the algorithm prior to final interpretation. Normal [facility] Comment on above: Order Comment: Speci men Type: FLUID SPECIMEN Ordering Facility: [facility] Address: [address] [place] [address] Performed By: #### L [id number] #### [facility] CLIA [id number] [address] [place] [address] [place] [facility] CLIA [id number] [address] [place] [address] [place] TRICHOMONAS VAGINALIS NAATon 09-25-2024 T. vaginalis DNA MARC+probe Ql (Unsp spec) Not detected Normal Not detected [facility] Comment on above: Order Comment: Speci men Type: SWAB Ordering Facility: [facility] Address: [address] [place] [address] Performed By: #### T RVAMP, 34136-8 #### [facility] CLIA [id number] [address] [place] [address] [place] Absolute lymphocyte counton 12-20-2021 Lymphocytes Auto (Unsp spec) [#/Vol] 1.70 10*3/uL 0.83-4.51 [facility] Work Phone: Basophil percentageon 2021 Basophils/100 WBC (Bld) 0.4 % 0-1 [facility] Work Phone: Eosinophils/100 WBC (Bld) 2.6 % 0-5 [facility] Work Phone: Neutrophils (Bld) [#/Vol] 8.2 10*3/uL 2.0-7.7 [facility] Work Phone: Neutrophils/100 WBC (Bld) 76.7 % 47-70 [facility] Work Phone: WBC (Bld) [#/Vol] 10.7 10*3/uL 4.4-11.0 [facility] Work Phone: Blood erythrocytes count (nu mber/volume)on 12-20-2021 RBC (Bld) [#/Vol] 3.57 10*6/uL 4.2-5.4 [facility] Work Phone: Blood hemoglobin measurement (mass/volume)on 12-20-2021 Hemoglobin (Bld) [Mass/Vol] 11.3 g/dL 12.0-15.0 [facility] Work Phone: Blood lymphocytes/100 leukoc yteson 12-20-2021 Lymphocytes/100 WBC (Bld) 15.8 % 19-41 [facility] Work Phone: Blood monocytes/100 leukocyt eson 12-20-2021 Monocytes/100 WBC (Bld) 4.0 % 0-10 [facility] Work Phone: Blood platelet mean volumeon 12-20-2021 Platelet mean volume (Bld) [Entitic vol] 10.1 fL 6.2-12.0 [facility] Work Phone: Determination of erythrocyte mean corpuscular volume (MCV)on 12-20-2021 MCV (RBC) [Entitic vol] 95.8 fL 81-99 [facility] Work Phone: Gestational diabetes screen 1-hour screen with 50g oral glucose loadon 12-20-2021 Glucose 1 Hr post 50 g glucose PO [Mass/Vol] 140 mg/dL 70-140 [facility] Work Phone: Hematocrit Auto (Bld) [Volum e fraction]on 12-20-2021 Hematocrit (Bld) [Volume fraction] 34.2 % 37-47 [facility] Work Phone: Laboratory - Hematology and Cell countson 12-20-2021 Erythrocyte distribution width (RBC) [Entitic vol] 45.9 fL 35.1-43.9 [facility] Work Phone: [phone] Erythrocyte distribution width (RBC) [Ratio] 13.2 % 11.6-14.6 [facility] Work Phone: Immature granulocytes/100 WBC (Bld) 0.500 % 0.0-0.9 [facility] Work Phone: Comment on above: IG% - Immature Granu locytes (promyelocytes, myelocytes and metamyelocytes) > 1% indicates that a LEFT SHIFT is Present. MCH (RBC) [Entitic mass] 31.7 pg 27.0-32.0 [facility] Work Phone: Nucleated RBC/100 WBC (Bld) [Ratio] 0 % 0-5 [facility] Work Phone: MCHC Auto (RBC) [Mass/Vol]on 12-20-2021 MCHC (RBC) [Mass/Vol] 33.0 g/dL 32-36 [facility] Work Phone: Platelets bldon 12-20-2021 Platelets (Bld) [#/Vol] 193 10*3/uL 150-450 [facility] Work Phone: No Panel Information Group B Streptococcus Culture Group B Beta Streptococcus is not isolated. [facility] Work Phone: Vital Signs Date Time Vital Sign Value Performing Clinician Sahil pace 01-15-2025 10:08-0400 Body mass index (BMI) [Ratio] 19.57 kg/m2 Gary Guzman MD Work Phone: [facility] 01-15-2025 10:08-0400 Body weight 51.71 kg Gary Guzman MD Work Phone: [facility] 01-15-2025 10:08-0400 Diastolic blood pressure 72 mm[Hg] Gary Guzman MD Work Phone: [facility] 01-15-2025 10:08-0400 Systolic blood pressure 110 mm[Hg] Gary Guzman MD Work Phone: [facility] 12-18-2024 09:12-0400 Body mass index (BMI) [Ratio] 18.71 kg/m2 Cleopatra Powell APRN.CNP Work Phone: [facility] 12-18-2024 09:12-0400 Body weight 49.44 kg Cleopatra Haury STATEMENT PROCESSOR.WELD LAY OUT WORKER Work Phone: [facility] 12-18-2024 09:12-0400 Diastolic blood pressure 60 mm[Hg] Cleopatra Haury STATEMENT PROCESSOR.WELD LAY OUT WORKER Work Phone: [facility] 12-18-2024 09:12-0400 Systolic blood pressure 108 mm[Hg] Cleopatra Haury STATEMENT PROCESSOR.WELD LAY OUT WORKER Work Phone: [facility] 11-20-2024 07:57-0400 Body mass index (BMI) [Ratio] 18.02 kg/m2 Cleopatra Haury STATEMENT PROCESSOR.WELD LAY OUT WORKER Work Phone: [facility] 11-20-2024 07:57-0400 Body weight 47.63 kg Cleopatra Haury STATEMENT PROCESSOR.WELD LAY OUT WORKER Work Phone: [facility] 11-20-2024 07:57-0400 Diastolic blood pressure 60 mm[Hg] Cleopatra Haury STATEMENT PROCESSOR.WELD LAY OUT WORKER Work Phone: [facility] 11-20-2024 07:57-0400 Systolic blood pressure 108 mm[Hg] Cleopatra Haury STATEMENT PROCESSOR.WELD LAY OUT WORKER Work Phone: [facility] 10-22-2024 09:26-0400 Body mass index (BMI) [Ratio] 18.4 kg/m2 Emy Plotts STATEMENT PROCESSOR.CNM Work Phone: [facility] 10-22-2024 09:26-0400 Body weight 48.63 kg Emy Plotts STATEMENT PROCESSOR.CNM Work Phone: [facility] 10-22-2024 09:26-0400 Diastolic blood pressure 62 mm[Hg] Emy Plotts STATEMENT PROCESSOR.CNM Work Phone: [facility] 10-22-2024 09:26-0400 Systolic blood pressure 110 mm[Hg] Emy Plotts STATEMENT PROCESSOR.CNM Work Phone: [facility] Encounters Encounter Date Encounter Type Care Provider Facility Start: 03-12-2025 End: 03-12-2025 ambulatory YOON WEST Facility:[facility] Start: 02-26-2025 End: 02-26-2025 ambulatory ELIAZAR RUTLEDGE Facility:[facility] Start: 02-12-2025 End: 02-12-2025 ambulatory ELIAZAR RUTLEDGE Facility:[facility] Start: 02-04-2025 End: 02-04-[address] Gary Guzman DO Work Phone: -Laboratory Start: 02-04-2025 End: 02-04-[address] Gary Guzman DO -Laboratory Work Phone: Start: 02-04-2025 End: 02-04-2025 ambulatory Gary Guzman Facility:[facility] Start: 01-15-2025 End: 01-15-2025 Patient encounter procedure Gary Guzman MD Work Phone: OB/Gynecology Comment on above: Screening for diabet es mellitus (Primary Dx); Supervision of high risk in second trimester (HCC); 24 weeks gestation of (HCC) Start: 01-15-2025 End: 01-15-2025 ambulatory GARY GUZMAN Facility:[facility] Start: 12-18-2024 End: 12-22-2024 Telephone encounter Cleopatra [...] Start: 12-18-2024 End: 12-18-2024 ambulatory CLEOPATRA POWELL Facility:[facility] Start: 11-20-2024 End: 11-20-2024 Patient encounter procedure Cleopatra Powell APRN.CNP Work Phone: OB/Gynecology Comment on above: Encounter for superv ision of high risk in first trimester, antepartum (HCC) (Primary Dx); 16 weeks gestation of (HCC); History of section Start: 11-20-2024 End: [facility] Start: 10-22-2024 End: 10-22-2024 [facility] Facility:[facility] Start: 10-22-2024 End: 10-22-2024 Patient encounter procedure Whi [employer] 1 Network Control Technician [facility] Comment on above: Encounter for superv ision of high risk in first trimester, antepartum (HCC) Encounter for superv ision of high risk in first trimester, antepartum (HCC) (Primary Dx); 12 weeks gestation of (HCC); History of section Start: 10-22-2024 End: 10-22-2024 [facility] Start: 09-26-2024 End: 11-26-2024 Follow-up encounter Cleopatra oPwell APRN.WELD LAY OUT WORKER Work Phone: OB/Gynecology Start: 09-25-2024 End: 09-25-2024 [facility] Facility:[facility] Start: 02-21-2022 End: 02-21-2022 [facility] Work Phone: Start: 02-21-2022 End: 02-21-2022 Patient encounter procedure [facility], Specimen Start: 12-20-2021 End: 12-20-2021 Patient encounter procedure [facility], [place] h[place] carrier Off Procedures Date Procedure Procedure Detail Performing Clinician Start: 02-04-2025 Serologic test for syphilis Dr. Gary Guzman DO Work Phone: Start: 02-04-2025 Total iron binding capacity measurement Dr. Gary Guzman DO Work Phone: Start: 12-18-2024 Us preg uterus after 1st trimest 1/ gestation Cleopatra Powell APRN.WELD LAY OUT WORKER Work Phone: Start: 10-22-2024 Antibody screen GARY MOSES Comment on above: Order Comment: Speci men Type: BLOOD SPECIMEN Ordering Facility: [facility] Address: [address] [place] [address] Performed By: #### T SPN #### [facility] CLIA [id number] [address] [place], [place] [address] [place] [address] [place] Start: 10-22-2024 Us preg uterus after 1st trimest / gestation Cleopatra Powell STATEMENT PROCESSOR.WELD LAY OUT WORKER Work Phone: Start: 09-25-2024 H/O: section History of section [employer] B Streptococcu s Culture H/O: section History of section Emy Edge STATEMENT PROCESSOR.CNM Work Phone: H/O: section History of section Cleopatra Powell STATEMENT PROCESSOR.WELD LAY OUT WORKER Work Phone: H/O: section History of section Cleopatra Powell STATEMENT PROCESSOR.WELD LAY OUT WORKER Work Phone: H/O: section History of section Dr. Gary Guzman DO Work Phone: Plan of Treatment Date Care Activity Detail Author Start: 09-25-2029 Screening for malign ant neoplasm of cervix Cervical Cancer Screening [facility] Start: 05-08-2025 End: 05-08-2025 Patient encounter procedure 05/08/2025 10:30 AM EST Office Visit OB/Gynecology [address] [place] [phone] Eliazar Rutledge MD [address] [place] [id number] 1 week incision check OB/Gynecology Comment on above: 1 week incision chec k Start: 05-01-2025 ambulatory Ambulatory Facility:[facility] Start: 04-17-2025 End: 04-17-2025 Patient encounter procedure 04/17/2025 10:30 AM EST Routine Office Visit OB/Gynecology [address] [place] [id number] Eliazar Rutledge MD [address] [place] [address] OB Pre Op C/S 05/01 @ [facility] OB/Gynecology Comment on above: OB Pre Op C/S 05/01 @ [facility] Start: 03-11-2025 RSV Vaccine (1 - Ris k 1-dose series) RSV Vaccine (1 - Risk 1-dose series) [facility] Start: 02-12-2025 End: 02-12-2025 Patient encounter procedure 02/12/2025 10:50 AM EDT Routine Office Visit OB/Gynecology [address] [place] [address] Eliazar Rutledge MD [address] [place] [id number] OB OB/Gynecology Comment on above: OB Start: 01-15-2025 End: 04-16-2025 ANEMIA REFLEX PANEL ANEMIA REFLEX PANEL Lab Routine Supervision of high risk in second trimester (HCC) Expected: 01/15/2025, Expires: 04/16/2025 [facility] Comment on above: Expected: 01/15/2025 , Expires: 04/16/2025 Start: 01-15-2025 End: 01-15-2026 GESTATIONAL GLUCOSE SCREEN, 1-HOUR, 50 GRAM, NON-FASTING GESTATIONAL GLUCOSE SCREEN, 1-HOUR, 50 GRAM, NON-FASTING Lab Routine Screening for diabetes mellitus Expected: 01/15/2025, Expires: 01/15/2026 [facility] Work Phone: Comment on above: Expected: 01/15/2025 , Expires: 01/15/2026 Start: 01-15-2025 End: 01-15-2026 SYPHILIS TREPONEMAL W/REFLEX SYPHILIS TREPONEMAL W/REFLEX Lab Routine Supervision of high risk in second trimester (HCC) Expected: 01/15/2025, Expires: 01/15/2026 [facility] Comment on above: Expected: 01/15/2025 , Expires: 01/15/2026 Start: 01-15-2025 End: 01-15-2025 Patient encounter procedure 01/15/2025 9:50 AM EDT Routine Office Visit OB/Gynecology [address] [place] [id number] Gary Guzman MD [address] [place] [address] OB OB/Gynecology Comment on above: OB Start: 01-05-[address] [facility] Start: 12-18-2024 End: 12-18-2024 Patient encounter procedure [facility] Comment on above: Anatomy Scan Anatomy/ OB Start: 11-20-2024 End: 11-20-2024 Patient encounter procedure 11/20/2024 8:00 AM EDT Routine Office Visit OB/Gynecology [address] [place] [address] Cleopatra Powell APRN.WELD LAY OUT WORKER [address] [place] [address] Ob Visit OB/Gynecology Comment on above: Ob Visit Start: 01-06-2024 Covid-19 Vaccine ( season) Covid-19 Vaccine ( season) [facility] Start: 2017 HPV Vaccine (1 - 3-d ose SCDM series) HPV Vaccine (1 - 3-dose SCDM series) [facility] Start: 2009 Hepatitis B Vaccine (1 of 3 - 19+ 3-dose series) Hepatitis B Vaccine (1 of 3 - 19+ 3-dose series) [facility] Start: 2009 Urine microalbumin profile DTaP,Tdap,Td Vaccine (1 - Tdap) [facility] Start: 2008 Anxiety Screening Anxiety Screening [facility] Start: 2008 Depression Screening Depression Scre ening [facility] Start: 2008 Hepatitis C screening Hepatitis C Sc reening [facility] Start: 2008 HIV screening [facility] Payers Date Payer Category Payer Self-pay [id number] 2024 Unknown [id number] 2024 Private Health Insurance [employer]ULTCAR E [id number] 2024 Unknown [id number] Unknown [id number] Unknown [id number] Social History Date Type Detail Facility Start: 05-10-2021 Tobacco smoking stat us MDIS Unknown if ever smoked [facility] Work Phone: Start: 1990 Sex Assigned At Female [facility] Start: 03-11-2022 End: 09-23-2024 Tobacco smoking status NHIS Never smoked tobacco [facility] Start: 09-23-2024 Tobacco use and exposure Smokeless tobacco non-user [facility] Start: 10-22-2024 End: 01-15-2025 Alcoholic beverage intake Ex-drinker (finding) [facility] Start: 10-22-2024 End: 01-08-2025 History of Social function [facility] Start: 10-22-2024 End: 01-08-2025 Tobacco use panel [facility] Start: 09-05-2024 National Score (1-10 0), lower number is lower risk 69 [facility] Start: 08-13-2024 [facility] Start: 1990 Sex assigned at Not on [...] Type Note Facility 02-06-2025 Note HNO ID: [id number] Author: GARY GUZMAN MD Service: ? Author Type: Physician Type: Progress Notes Filed: 02/06/2025 08:32 Note Text: Reviewed and normal [facility] 02-04-2025 Note HNO ID: [id number] Author: YOON MENA RN Service: ? Author Type: Registered Nurse Type: Progress Notes Filed: 02/04/2025 09:37 Note Text: 27w0d CBC results done at [facility]. Scan on 02/04/2025 8:35 AM by Provider, Colin, PA-C: CBC 1 hour glucose, Syphilis, and Anemia reflex results from [facility] Scan on 02/04/2025 9:13 AM by Provider, External, PA-C: 1 hour glucose, Syphilis, Anemia Reflex Yoon Mena RN [facility] 01-15-2025 Note HNO ID: [id number] Author: GARY GUZMAN MD Service: ? Author [...] labs ordered - RTO 4 wks Gary Guzmna DO [facility] 01-15-2025 History of Presen t illness Narrative SW- Pt doing well. No pain, vb, lof. Good FM PE: Gen- NAD, well appearing Abd- Soft, gravid, NT See flowsheet A/p 24 wk gestation - MOD: Discussed r/b/a TOLAC vs repeat C/S. Patient planning repeat C/S - 28 wk labs ordered - RTO 4 wks Gary Guzman DO documented in this encounter [facility] 01-15-2025 Instructions Huong Clark RN - 01/15/2025 10:01 AM EDT SEQUENTIAL SCREENINGS The [facility] offers sequential screenings for women who are [...] It will require an appointment with our computer system technician. This is not an ultrasound performed [...] the above symptoms, contact our office at [phone] and ask to speak with a nurse. After hours, you can call doctors registry at [phone] OR call [facility] at [phone] and ask to have the doctor sanitation officer paged. If you consider this an emergency, dial 9-1-1 or go to your nearest emergency department. NEED HELP? Are you dealing with a violent or abusive relationship? Are you a victim of rape or sexual assult? Call [facility] ([place]) 24 hour Crisis Hotline: 624.279.8890 or 898-986-5272. MANUAL Your Guide to a Healthy manual is now on-line. Visit [email or web address] [email or web address] to download your free copy documented in this encounter [facility] 12-19-2024 Telephone encount er Note KJ is back up call on 05/01. Surgery sheet to ANJELICA. Yoon Mena RN [facility] 12-19-2024 Miscellaneous Notes Formattin g of this [...] repeat c/s with Dr. Luong. Cleopatra Powell APRN.WELD LAY OUT WORKER documented in this encounter [facility] 12-19-2024 Telephone encount er Note I am planning on being out May. So I can't promise I will do it. I might not be out. Nyasia Luong MD [facility] Work Phone: 12-18-2024 Telephone encount er Note RR is in surgery on 05/01. C/S schedule is open. Yoon Mena, RN [facility] 12-18-2024 Telephone encount er Note VICKY 05/06. Planning for repeat c/s. Would like Dr. Luong. 39 weeks makes her 04/29. Would prefer to avoid Dimas/Dimas Clarissa. Wondering when she could have her repeat c/s with Dr. Luong. Cleopatra Powell APRN.WELD LAY OUT WORKER [facility] 12-18-2024 Progress note Formatting of t his [...] weeks or sooner as needed. Cleopatra Powell APRN.WELD LAY OUT WORKER [facility] 12-18-2024 Miscellaneous Notes Formattin g of this [...] Supervision of high risk in second trimester ([facility]) - ICD9: V23.9, ICD10: O09.92 (primary diagnosis) - Continue PNV 2. 20 weeks gestation of ([facility]) - ICD9: V22.2, ICD10: Z3A.20 - Anatomy today, report pending 3. History of section - ICD9: V45.89, ICD10: Z98.891 - Planning for repeat PTL precautions reviewed. RTO in 4 weeks or sooner as needed. Cleopatra Powell APRN.WELD LAY OUT WORKER documented in this encounter [facility] 12-18-2024 Instructions Latoya Guaman MA - 12/18/2024 9:03 AM EDT SEQUENTIAL SCREENINGS The [facility] offers sequential screenings for women who are [...] It will require an appointment with our computer system technician. This is not an ultrasound performed [...] the above symptoms, contact our office at [phone] and ask to speak with a nurse. After hours, you can call doctors registry at [phone] OR call [facility] at [phone] and ask to have the doctor sanitation officer paged. If you consider this an emergency, dial 9-2 or go to your nearest emergency department. NEED HELP? Are you dealing with a violent or abusive relationship? Are you a victim of rape or sexual assult? Call [facility] ([place] 24 hour Crisis Hotline: 632.472.7116 or 841-928-0400. MANUAL Your Guide to a Healthy manual is now on-line. Visit [email or web address] [email or web address] to download your free copy documented in this encounter [facility] 11-20-2024 Progress note Formatting of t his [...] or sooner as needed. Cleopatra Powell APRN.[place] [facility] 11-20-2024 Miscellaneous Notes Formattin g of this [...] weeks or sooner as needed. Cleopatra Powell APRN.WELD LAY OUT WORKER documented in this encounter [facility] 11-20-2024 Instructions Latoya Guaman MA - 11/20/2024 7:54 AM EDT SEQUENTIAL SCREENINGS The [facility] offers sequential screenings for women who are [...] It will require an appointment with our computer system technician. This is not an ultrasound performed [...] the above symptoms, contact our office at [phone] and ask to speak with a nurse. After hours, you can call doctors registry at [phone] OR call [facility] at [phone] and ask to have the doctor sanitation officer paged. If you consider this an emergency, dial 9-2 or go to your nearest emergency department. NEED HELP? Are you dealing with a violent or abusive relationship? Are you a victim of rape or sexual assult? Call [facility] ([place] 24 hour Crisis Hotline: 882.896.4518 or 931-152-8928. MANUAL Your Guide to a Healthy manual is now on-line. Visit [email or web address] [email or web address] to download your free copy documented in this encounter [facility] 10-22-2024 Miscellaneous Notes Formattin g of this [...] Emy Edge APRN.CNM documented in this encounter [facility] 10-22-2024 Progress note Formatting of t his [...] or sooner if needed Emy Edge APRN.CNM [facility] 10-22-2024 Instructions Natty Camacho LPN - 10/22/2024 9:06 AM EDT SEQUENTIAL SCREENINGS The [facility] offers sequential screenings for women who are [...] It will require an appointment with our computer system technician. This is not an ultrasound performed [...] the above symptoms, contact our office at [phone] and ask to speak with a nurse. After hours, you can call doctors registry at [phone] OR call [facility] at [phone] and ask to have the doctor sanitation officer paged. If you consider this an emergency, dial 9--1 or go to your nearest emergency department. NEED HELP? Are you dealing with a violent or abusive relationship? Are you a victim of rape or sexual assult? Call [facility] ([place] 24 hour Crisis Hotline: 290.986.2219 or 385-201-2545. MANUAL Your Guide to a Healthy manual is now on-line. Visit [email or web address] [email or web address] to download your free copy documented in this encounter [facility] 09-23-2024 Note HNO ID: [id number] Author: CLEOPATRA POWELL APRN.WELD LAY OUT WORKER Service: ? Author Type: Nurse Practitioner Type: [...] Status: Partner: Name: Belkys Age: 35 Occupation: [employer] Gender: Male History reviewed. No pertinent past medical history. PAST SURGICAL HISTORY Procedure Laterality Date SECTION HX 03/12/2022 Dr. Galloway Current Outpatient Medications Medication Sig Dispense Refill aspirin, enteric coated (ECOTRIN LOW STRENGTH) 81 mg EC tablet Take 1 tablet by mouth once daily. 90 tablet 3 vit no.[id number] ( VITAMIN) 27 mg iron- 800 mcg [...] hematuria or dysuria (more content not included)... [facility] Evaluation note No assessment inform ation available [facility] Work Phone: Evaluation note Diagnosis Encounter for supervision of high risk in first trimester, antepartum (HCC) [facility] Diagnosis Encounter for supervision of high risk in first trimester, antepartum (HCC)- Primary 12 weeks gestation of (HCC) state, incidental History of section Other postprocedural status [facility] Diagnosis Encounter for supervision of high risk in first trimester, antepartum (HCC)- Primary 16 weeks gestation of (HCC) state, incidental History of section Other postprocedural status documented in this encounter [facility] note* Diagnosis Supervision of high risk in second trimester (HCC)- Primary Unspecified high-risk 20 weeks gestation of (HCC) state, incidental History of section Other postprocedural status documented in this encounter [facility] note* Diagnosis Encounter for supervision of high risk in first trimester, antepartum (HCC)- Primary 20 weeks gestation of (HCC) state, incidental [facility] Diagnosis Screening for diabetes mellitus- Primary Supervision of high risk in second trimester (HCC) Unspecified high-risk 24 weeks gestation of (HCC) state, incidental documented in this encounter [facility] for referral (narrative)No reason for referral [facility] Work Phone: Chief Complaint and Reason [...] or prosecute any alcohol or drug abuse patient.[facility] the event this information is protected by the Federal Confidentiality of Alcohol and Drug Abuse Patient Records regulations: The Federal rules restrict any use of the information to criminally investigate or prosecute any alcohol or drug abuse patient.[facility] the event this information is protected by the Federal Confidentiality of Alcohol and Drug Abuse Patient Records regulations: The Federal rules restrict any use of the information to criminally investigate or prosecute any alcohol or drug abuse patient.[facility] the event this information is protected by the Federal Confidentiality of Alcohol and Drug Abuse Patient Records regulations: The Federal rules restrict any use of the information to criminally investigate or prosecute any alcohol or drug abuse patient.[facility] the event this information is protected by the Federal Confidentiality of Alcohol and Drug Abuse Patient Records regulations: The Federal rules restrict any use of the information to criminally investigate or prosecute any alcohol or drug abuse patient.[facility] the event this information is protected by the Federal Confidentiality of Alcohol and Drug Abuse Patient Records regulations: The Federal rules restrict any use of the information to criminally investigate or prosecute any alcohol or drug abuse patient.[facility] the event this information is protected by the Federal Confidentiality of Alcohol and Drug Abuse Patient Records regulations: The Federal rules restrict any use of the information to criminally investigate or prosecute any alcohol or drug abuse patient.[facility] the event this information is protected by the Federal Confidentiality of Alcohol and Drug Abuse Patient Records regulations: The Federal rules restrict any use of the information to criminally investigate or prosecute any alcohol or drug abuse patient.[facility] Reason for Visit (unrecogniz ed section and content) Reason Comments [place] Specialty Diagnoses / Procedures Referred By Contac t Referred To Contact 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 [address] Phone: tel: fax: [facility] [address] [place] [address] Referral ID Status Reason Start Date Expiration Date V isits Requested Visits Authorized [id number] Closed Auto-Generate d Referral 09/25/2024 09/25/2025 1 1 Reason Onset Date Comments Care 10/22/2024 Reason Onset Date Comments Care 11/20/2024 Reason Onset Date Comments Care 12/18/2024 Referral ID Status Reason Start Date Expiration Date V isits Requested Visits Authorized [id number] Closed Auto-Generate d Referral 09/25/2024 09/25/2025 1 [...] section and content) DATE CREATED AUTHOR 02/13/2025 [facility] DATE CREATED AUTHOR AUTHOR'S CHUCKY HAWLEY 03/14/2025 [facility] FOR RECORDS PERTAINING TO PATIENTS WHO [...] THE PRIMARY CLINICAL RECORDS. [facility] [employer] [facility]. provides no warranty or guarantee of the accuracy or completeness of information in this document.
[2025-05-01 10:33] LABS: Hematocrit 34.5 % (37-47); Hemoglobin 11.5 g/dL (12.0-15.0); Immature Granulocytes Count 0.050 X10^3/uL (0.0-0.0); Mean Corp Hgb Conc 33.3 g/dL (32-36); Mean Corpuscular Volume 89.1 fL (81-99); Mean Platelet Vol. 10.9 fl (6.2-12.0); NRBC Flagged by Analyzer 0 % (0-5); Platelet Count 201 K/mm3 (150-450); RBC Distribution Width CV 14.0 % (11.6-14.6); RBC Distribution Width SD 45.3 fl (35.1-43.9); Red Blood Count 3.87 M/mm3 (4.2-5.4); White Blood Count 10.4 K/mm3 (4.4-11.0)
[2025-05-01] MEDS: Lactated Ringers 1,000 ML 150 ML IV (11:29)
--- NOTE | 2025-05-01 11:48 | HP.PCM.OB_ITS ---
HPI - General General Date of Admission: 05/01/25 Date of Service: 05/01/25 HPI Narrative CHYNA ROSARIO, is a 34 F who presents for repeat . Maternal Data Information VICKY Calculator Estimated Delivery Date Method Current WG Current Estimate 05/06/25 Manual 39w 2d PFSH PFSH Home Medications ?Medication ?Instructions ?Recorded ?Last Taken ?Type 1 tab PO.IVFORM DAILY pregna ncy 03/11/22 05/01/25 History Allergy/AdvReac Type Severity Reaction Status Date / Time No Known Allergies Allergy Verified 05/01/25 10:01 Surgical History (Updated 05/01/25 @ 11:[address] Karely Ernst MD) History of section Social History (Updated 09/21/18 @ 11:26 by Thelma OSBORNE, PA) Smoking Status: Never smoker alcohol intake: current alcohol intake frequency: a few times a week Alcohol type: wine History Elective abortions Hx Para 1 Spontaneous abortions Hx # Term Pregnancies Ectopic pregnancies Hx # Pregnancies Multiple births # of living children Vital Signs Vital Signs Vital Signs: 05/01/25 10:10 Temperature 98.1 F Temperature Source Temporal Pulse Rate 84 Respiratory Rate 16 Blood Pressure 114/82 H Blood Pressure Mean 92 Blood Pressure Source Monitor Blood Pressure Position Semi-Fowlers Blood Pressure Location Left Arm Baseline BP 114/82 Pulse Ox 98 Oxygen Delivery Method Room Air Weight Weight: 121 lb Body Mass Index (BMI) 21.4 PRE- weight 100 lb PRE- Body Mass Index 17.6 (BMI) Physical Exam Const alert, oriented x3 and no apparent distress Resp normal respiratory effort GI non-tender, non-distended and no masses Inspection: gravid external exam normal Labs Labs Labs: Blood Type O POSITIVE Antibody Screen NEGATIVE Hct, (37-47) 34.5 % L Hgb, (12.0-15.0) 11.5 g/dL L Syphilis Total Ab, (Nonreactive) Nonreactive Rubella IgG Antibody, (Nonreactive) Reactive Hep Bs Antigen, (Nonreactive) Non-Reactive Hepatitis C Antibody, (Nonreactive) Non-Reactive Chlamydia DNA (MARC), (Negative) Negative N.gonorrhoeae DNA (MARC), (Negative) Negative HIV 1&2 Antibody, (Nonreactive) Non-Reactive Glucose 1 Hr 50 gm, (70-140) 127 mg/dL Rhogam given: No Assessment & Plan (1) Previous delivery affecting : (2) 39 weeks gestation of : PLAN: Plan Admit to L&D Proceed with repeat . Informed consent signed after discussing R/B/A.
[2025-05-01] MEDS: Cefazolin 1 GM/5 ML Vial 2 GM IV (11:54)
[2025-05-01] MEDS: Lactated Ringers 1,000 ML 1000 ML IV (11:54)
[2025-05-01 11:57] LABS: Syphilis Antibodies Nonreactive (Nonreactive)
[2025-05-01] MEDS: morphine PF (epidural) 5 MG/10 ML Vial IV (12:05)
--- NOTE | 2025-05-01 13:02 | OP.PCM_ITS ---
Maternal Data Information VICKY Calculator Estimated Delivery Date Method Current WG Current Estimate 05/06/25 Manual 39w 2d Operative Report (OB) Procedure Details Date of Procedure: 05/01/25 Procedure Start Time: 12:21 Procedure Stop Time: 13:02 Pre-Operative Diagnosis: Repeat Elective Post-Operative Diagnosis: Same as Pre-operative diagnosis Classification: Scheduled Type of Anesthesia: Local with 1% Lidocaine and Spinal Antibiotic Given: Ancef 2 grams IV x1 Drain: Colon to straight drain Estimated Blood Loss: 800ml Fluids Replaced: 1000ml Findings Description of surgery: The patient was taken to the operating room where spinal anesthesia was placed & found to be inadequate. She was prepped and draped in the dorsal supine position with a leftward tilt. 10ml lidocaine (1%) injected on the right side of patient's incision. A Pfannenstiel skin incision was made approximately 2 cm above the symphysis pubis and carried through to the underlying fascia with the scalpel. The fascia was incised incised in the midline and extended laterally with the Schreiber scissors. The rectus muscles were in the midline and the peritoneum was entered carefully and bluntly. The peritoneal incision was stretched and the bladder blade was inserted. Vesicouterine peritoneum was tented up, incised & then bladder flap created gently. The uterine incision was made in a low transverse fashion with the scalpel and extended superiorly and inferiorly with blunt dissection. The 's head was brought to the incision in the flexed position and delivered without difficulty. The head was gently guided to allow delivery of the anterior and posterior shoulders. The body then delivered with fundal pressure in the standard fashion. The 3VC cord was clamped and cut in slightly delayed fashion. The was handed off to the waiting community services officer. The placenta was delivered with fundal massage and gentle traction in the standard fashion. The uterus was exteriorized and cleared of clots and debris. The uterine incision was closed with #1 Vicryl suture in a running locked fashion. Monocryl suture was used in an imbricating fashion. The incision was examined and was found to be hemostatic. The uterus was returned to the abdominal cavity. After irrigating Hemoblast was placed over the uterine incision as some areas were denuded (but hemostatic). The rectus muscle was examined and any bleeding was Bovie cauterized. The fascia was closed with PDS suture in a running standard fashion. The subcutaneous tissue was examining and any bleeding was Bovie cauterized. The skin was closed in a subcuticular fashion by the LAN SPECIALIST while I was present in the OR. The remainder of the procedure was performed by me with assistance. Surgical findings: normal maternal uterus and adnexa but there was some scarring of the left adnexa to the uterus Presentation: Vertex Amniotic Membrane Rupture Type: Artificial Amniotic Fluid Description: Clear Placental Delivery Description: Expressed Placenta Disposition: [facility] Specimen collected: No Cord Vessel Description: 3 Vessels Cord Entanglement: None A gender: Male (1 minute): 8 (5 minute): 9 Delayed Cord Clamping: No Hand Alterations Tailor glove turner: Yes Retail Commission Sales Associate: Sarita Landrum Tasks completed by events administrative assistant: Opening & closing and Retracting Additional business office assistant?: No Complications Complications: No
--- NOTE | 2025-05-01 13:16 | PCM.POST.ANE ---
Anesthesia: Postop Eval I Current Vital Signs Temperature: 98.1 F Pulse Rate: 73 Blood Pressure: 139/83 Respiratory Rate: 16 Pulse Ox: 100 Assessment Airway patent: Yes Spontaneous unlabored respirations: Yes nausea: No Vomiting: No Anesthesia Complication: No Fluid Hydration Crystalloid volume administer (ml): 1,000 Total IV fluid infused: 1,000 Progress Note Anesthesia document: Postop Eval 1 completed: Yes
[2025-05-01] MEDS: Oxytocin 15 Units/NS 250ml 15 UNITS/250 ML IV.SOLN 83 UNITS IV (13:19)
[2025-05-01] MEDS: Ketorolac 30 MG/ML Syringe IV ×2 (14:11→20:25)
[2025-05-01] MEDS: Lactated Ringers 1,000 ML 100 ML IV (16:42)
[2025-05-02] VITALS: BP 97/64; PULSE 72; RESP 17; TEMP 36.3; O2SAT 99
[2025-05-02] MEDS: Ketorolac 30 MG/ML Syringe IV ×2 (02:15→08:42)
[2025-05-02] MEDS: 0.9% Saline Lock 10 ML Syringe IV ×2 (02:16→08:42)
[2025-05-02 04:00] VITALS: BP 94/69; PULSE 80; RESP 17; TEMP 36.3; O2SAT 98
[2025-05-02 06:23] LABS: Hematocrit 30.0 % (37-47); Hemoglobin 9.8 g/dL (12.0-15.0); Mean Corp Hgb Conc 32.7 g/dL (32-36); Mean Corpuscular Volume 89.8 fL (81-99); Mean Platelet Vol. 10.4 fl (6.2-12.0); Platelet Count 168 K/mm3 (150-450); RBC Distribution Width CV 14.3 % (11.6-14.6); RBC Distribution Width SD 46.1 fl (35.1-43.9); Red Blood Count 3.34 M/mm3 (4.2-5.4); White Blood Count 10.8 K/mm3 (4.4-11.0)
[2025-05-02 08:40] VITALS: BP 108/73; PULSE 90; RESP 16; TEMP 36.9; O2SAT 98
--- NOTE | 2025-05-02 10:11 | PCM.PN.OB ---
Subjective Subjective Pain controlled Objective Data Objective Data Vital Signs: Vital Signs Temp Pulse Resp BP Pulse Ox O2 Del Method 98.5 F 90 16 108/73 98 Room Air 05/02/25 08:40 05/02/25 08:40 05/02/25 08:40 05/02/25 08:40 05/02/25 08:40 05/02/25 08:40 Oxygen Delivery Method Room Air Weight: 121 lb Body Mass Index (BMI) 21.4 Intake & Output: Intake and Output for Last 24 Hours 04/30/25 05/01/25 05/02/25 23:59 23:59 23:59 Intake Total 1707.5 / 1707.5 Output Total 1700 / 1700 700 / 700 Balance 7.5 / 7.5 -700 / -700 Lab / Micro Data 05/02/25 06:15 Labs: Laboratory Results - last 24 hr 05/01/25 10:05: WBC 10.4, RBC 3.87 L, Hgb 11.5 L, Hct 34.5 L, MCV 89.1, MCH 29.7, MCHC 33.3, RDW Std Deviation 45.3 H, RDW Coeff of Елена 14.0, Plt Count 201, MPV 10.9, Immature Gran % (Auto) 0.500, Neut % (Auto) 74.7 H, Lymph % (Auto) 18.8 L, [place] % (Auto) 5.3, Eos % (Auto) 0.5, Baso % (Auto) 0.2, Absolute Neuts (auto) 7.7, Absolute Lymphs (auto) 1.95, Nucleated RBC % 0, Syphilis Total Ab Nonreactive, Blood Type O POSITIVE, Antibody Screen NEGATIVE 05/02/25 06:15: WBC 10.8, RBC 3.34 L, Hgb 9.8 L, Hct 30.0 L, MCV 89.8, MCH 29.3, MCHC 32.7, RDW Std Deviation 46.1 H, RDW Coeff of Елена 14.3, Plt Count 168, MPV 10.4 Physical Exam Const alert, oriented x3 and no apparent distress HEENT normocephalic GI soft to palpation, non-tender and non-distended GI Narrative: fundus firm, mid & below umbilicus Incision - bandage c/d/i Extremity normal to inspection and no calf tenderness Assessment & Plan (1) Previous delivery affecting : PLAN: Plan Heme - HDS, CBC reviewed ID - AF, no signs/symptoms infection GI/ - no issues Routine care
[2025-05-02] MEDS: Senna/Docusate Sodium 1 Tablet PO (12:16)
[2025-05-02 12:21] VITALS: BP 102/68; PULSE 94; RESP 16; TEMP 37.1; O2SAT 97
[2025-05-02 17:30] VITALS: BP 98/68; PULSE 89; RESP 16; TEMP 36.7; O2SAT 100
--- NOTE | 2025-05-02 19:14 | PCM.DC.SUM ---
Providers Date of Admission: 05/01/25 Date of Discharge: 05/03/25 Primary Care Physician: Dr. Fawad Mathias DO Reason For Visit: REPEAT Diagnosis Discharge Diagnosis (1) Previous delivery affecting : Status: Acute Code(s): O34.219 - Maternal care for unspecified type scar from previous delivery Plan Heme - HDS, CBC reviewed ID - AF, no signs/symptoms infection GI/ - no issues Routine care Medications at Discharge Home Medications 1 tab PO.IVFORM DAILY 03/11/22 acetaminophen 500 mg tablet 1,000 mg (2 x 500 mg) PO Q6 #0 tabs 05/02/25 ibuprofen 600 mg tablet 600 mg PO Q6H #0 tabs 05/02/25 Hospital Course Operations section Procedures None Summary of Care Provided Minutes Spent on Discharge: 15 Weight / BMI Weight Weight: 121 lb Body Mass Index (BMI) 21.4 PRE- weight 100 lb PRE- Body Mass Index 17.6 (BMI) ABG / Lab / Microbiology Data 05/02/25 06:15 Laboratory: Laboratory Results - last 24 hr 05/02/25 06:15: WBC 10.8, RBC 3.34 L, Hgb 9.8 L, Hct 30.0 L, MCV 89.8, MCH 29.3, MCHC 32.7, RDW Std Deviation 46.1 H, RDW Coeff of Елена 14.3, Plt Count 168, MPV 10.4 D/C Instructions Discharge Activity: May Shower May resume sexual activity in: 6 weeks Weight Bearing Status: Weight bearing as tolerated Call your doctor if your incision/area has: Continuous Slow Oozing, Sudden Increased Bleeding, Increased Pain/ Swelling, Increased Redness, Foul Smelling Discharge and Swelling at the incision site Call your doctor if you observe: Fever of 101 or Higher, Coldness, Increased Pain, Change in Color, Inability to urinate, Inability to have a bowel movement, Using more than 1 pad per hour, Shortness of breath, Dizziness, Fainting spells, Chest pain, Increased palpitations (irregular heartbeat), Calf discomfort and Uncontrolled pain Suture Line Care: Avoid Pulling/Pushing and Avoid Pinching/Bending Remove Dressing in: 1 week Cleanse incision/area with: Soap & Water DC O2, CPAP, BIPAP Needs Home O2 Discharge instructions: No Please Follow Up With: Karely Ernst MD When: Follow up in 2 and 6 weeks for visits. Meaningful Use Info Meaningful Use Meaningful Use Diagnoses (Choose all that apply): None applicable Discharge Plan Admission Admit Date/Time: 05/01/25 09:30 Primary Reason for Your Visit: section Attending Provider: Karely Ernst Primary Care Provider: Fawad Mathias Discharge Orders/Prescriptions Prescriptions: New acetaminophen 500 mg Tablet 1,000 mg PO Q6 Qty: 0 0RF ibuprofen 600 mg Tablet 600 mg PO Q6H Qty: 0 0RF Continued 1 tab PO.IVFORM DAILY Referrals / Follow Up: Fawad Mathias DO [Primary Care Provider, Family Practice] Disposition Disposition (needs filled in before D/C Order can be placed): Home, Self Care
[2025-05-02 20:24] VITALS: BP 111/72; PULSE 82; RESP 16; TEMP 36.8; O2SAT 98
[2025-05-03 02:58] VITALS: BP 102/72; PULSE 89; RESP 16; TEMP 36.7; O2SAT 99
[2025-05-03 08:08] VITALS: BP 97/70; PULSE 89; RESP 18; TEMP 36.7; O2SAT 100
[2025-05-03] MEDS: Senna/Docusate Sodium 1 Tablet PO (09:14)
--- NOTE | 2025-05-03 09:15 | PCM.PN.OB ---
Subjective Subjective Denies complaints Objective Data Objective Data Vital Signs: Vital Signs Temp Pulse Resp BP Pulse Ox O2 Del Method 98.0 F 89 18 97/70 100 Room Air 05/03/25 08:08 05/03/25 08:08 05/03/25 08:08 05/03/25 08:08 05/03/25 08:08 05/03/25 08:08 Oxygen Delivery Method Room Air Weight: 121 lb Body Mass Index (BMI) 21.4 Intake & Output: Intake and Output for Last 24 Hours 05/01/25 05/02/25 05/03/25 23:59 23:59 23:59 Intake Total 1707.5 / 1707.5 Output Total 1700 / 1700 1700 / 1700 Balance 7.5 / 7.5 -1700 / -1700 Lab / Micro Data 05/02/25 06:15 Physical Exam Const alert, oriented x3 and no apparent distress HEENT normocephalic GI soft to palpation, non-tender and non-distended GI Narrative: fundus firm, mid & below umbilicus Incision - bandage c/d/i Extremity normal to inspection and no calf tenderness Assessment & Plan (1) Previous delivery affecting : COMMENT: POD#2 PLAN: Plan D/c home
== END 2025-05-03 10:55 | disposition home or self-care (01) | DRG 788 ==
PROVIDERS: Admitting Provider Obstetrics & Gynecology; PCP Family Medicine; Referring Provider Obstetrics & Gynecology; Visit Provider Obstetrics & Gynecology
PROC: 10D00Z1 Extraction of Products of Conception, Low, Open Approach (ICD-10-PCS; CPT 59514; principal; 2025-05-01 11:45)
DX: O34.219 Maternal care for unspecified type scar from previous cesarean delivery (principal); Z37.0 Single live birth; Z3A.39 39 weeks gestation of pregnancy
CPT/HCPCS: 59025; 59050; 85025; 85027; 86780; 86850; 86900; 86901; 99221; A4216; G0378; J2405